=== PATIENT | female | born 1995 | race Caucasian/White ===

== ENCOUNTER 2019-06-04 01:14 | Outpatient (CLI) | payer MEDICAID, SELFPAY ==
--- NOTE | 2019-06-04 08:30 | DI.NM_ITS ---
EXAM: NM HEPATOBILIARY CCK GRP CLINICAL HISTORY: ABDOMINAL PAIN, R10.9. TECHNIQUE: Injected dose: 5 mCi Tc-99 mebrofenin Initial dynamic images: 60 minutes Post-Gallbladder fillin.2 mcg CCK intravenously over a 15min infusion. Addition images: 20 minute dynamic during CCK administration. COMPARISON: No exams were available for comparison FINDINGS: Normal hepatic transit time. Prompt excretion into the small bowel. Prompt excretion into the gallbladder. The gallbladder ejection fraction was 60 percent which is wit hin normal limits. IMPRESSION: 1. Unremarkable examination. SN guidelines: Gallbladder visualization should be present by 3 hours. Delayed [id number] barker sit beyond 60 min raises the suspicion for partial common bile duct (CBD) obstruction. Gallbladder ejection fraction <35% has a good correlation with acalculous disease (i.e., chronic acal culous cholecystitis, cystic duct syndrome, sphincter of Oddi disease).
== END 2019-06-04 01:34 ==
PROVIDERS: PCP Nurse Practitioner Family; Visit Provider Registered Nurse
DX: R10.9 Unspecified abdominal pain (principal)
CPT/HCPCS: 78227

== ENCOUNTER 2020-10-16 22:45 | Emergency (ER) | payer MEDICAID, SELFPAY ==
[2020-10-16 22:50] VITALS: BP 133/72; PULSE 118; RESP 20; TEMP 37.3; O2SAT 100
--- NOTE | 2020-10-16 23:03 | W.ED.GENAD ---
Discharge Plan Disposition Patient Disposition: HOME Condition: Stable Discharge Details Clinical Impression: Arm pain Primary Care Provider: Marely Fernandez ED Provider: Norm Magallanes Home Meds and New Rx's Prescriptions: Continued diphenhydramine-acetaminophen [Tylenol PM Extra Strength] 25-500 mg Tablet 1 tab PO HS RF: 0 PNV cmb#95-ferrous fumarate-FA [ Multivitamins] 28 mg iron- 800 mcg Tablet 1 tab PO DAILY RF: 0 Discharge Instructions Additional Instructions: Your blood work did not show concerning findings and your screening lab test for blood clots was normal follow up with your obgyn within 1-2 weeks espsecially if symptoms are continuing Take tylenol as needed for pain, follow dosing instructions on packaging, avoid using ibuprofen or other nsaids return to the emergency department for worsening pain, difficulty breathing, weakness swelling, chest discomfort, or if you feel more ill Medical Decision Making 25 yo female with prior history of seizure disorder not on medications in over 4 years per patient, who has no history of dvt/pe but states her mother has had clots in the past, who comes in with cc of right mid upper arm pain starting a few hours ago then noticed the bottoms of her feet felt tingly. Denies any known trauma and no chest pain, dyspnea, fevers, abdominal pain. Denies drug use or alcohol use but does smoke daily. 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 She localizes the pain to the medial right mid upper arm. She has no swelling of the arm compared to the left and states it doesn't feel swollen. She has normal sensation and pulses. no erythema or fluctuance. Has full range of motion of all joints, no midline neck pain, normal gait, CN II-XII intact. Denies back pain. She states the bottom of her feet feel like pins and needles. She has normal sensation in both feet on exam without swelling and normal pulses. She has no calf tenderness. She does appear anxious on exam and she does state she does feel anxious right now. Her arm pain seems musculoskeletal but given her family history of possible clotting disorders will obtain d dimer to screen for upper extremity dvt. Normal pulses and sensation on exam so doubt dissection and no chest pain or dyspnea to suggest Pe at this time. Will evaluate for electrolyte abnormalities. NIH of 0 so doubt cva at this time and do not feel head ct indicated blood work unremarkable, has K of 3.4 which given just outside normal range don't feel repletion indicated and wbc of 12 but has no fever or other infectious symptoms. She is and she was already aware of this and states she is about 8 weeks and is having a dating u/s done this Sunday. She remains stable with HR now in the 90's. Her d dimer is normal and given this even though she is and her exam being inconsistent with dvt do not feel she requires additional imaging such as cta or u/s. I suspect strain vs tendonitis causing her pain in the arm and she is comfortable with d/c and f/u with her pcp and obgyn. Advised that the numbness can be from the growing fetus placing pressure on her nerves in her pelvis or a sign of possible gestational diabetes though her glucose on labs is normal, discussed this doesn't exclude this diagnosis and she will f/u with her obgyn. She was advised to return for worsening pain, dyspnea, chest pain or weakness and if she feels ill in any way Differential Diagnosis Differential Diagnosis: muscle strain, dvt, cervical radiculopathy Lab Data Lab results reviewed: Yes I reviewed the patient's lab results. HPI General Mode of arrival: ambulatory. Date/Time Provider Initiated Documentation: 10/16/20 22:48. Limitations to Documentation: no limitations. Information obtained by: patient. History of Present Illness 25 year old F presents to the emergency department with the chief complaint of right mid arm pain, described as mild and moderate, with intensity rated at 5. Quality is described as aching, Patient reports no radiation. Patient started experiencing this hour(s) (2) and it has been constant. No relieving factors improve symptom(s), No exacerbating factors reported . Patient did receive the following treatments prior to arrival, none Related Data Home Medications Medication Instructions Recorded Confirmed PNV cmb#95-ferrous fumarate-FA 1 tab PO DAILY 10/16/20 10/16/20 [ Multivitamins] diphenhydramine-acetaminophen 1 tab PO HS 10/16/20 10/16/20 [Tylenol PM Extra Strength] Allergies Allergy/AdvReac Type Severity Reaction Status Date / Time erythromycin base Allergy Mild Verified 10/16/20 22:55 oxybutynin [From Ditropan] Allergy Mild Verified 10/16/20 22:55 sulfamethoxazole Allergy Mild Verified 10/16/20 22:55 [From Bactrim] trimethoprim [From Bactrim] Allergy Mild Verified 10/16/20 22:55 penicillin V [From Pen-Vee K] Allergy hives Verified 10/16/20 22:55 Penicillins Allergy Verified 10/16/20 22:55 General Stated Complaint: GenMedical LIDIA: 3 Review of Systems All systems reviewed & are unremarkable except as noted in HPI and below Constitutional Constitutional: Denies chills, Denies fever(s) and Denies weakness ENT Ears, Nose, Mouth, and Throat: Denies change in voice Cardiovascular Cardiovascular: Denies chest pain and Denies dyspnea Respiratory Respiratory: Denies cough and Denies dyspnea Gastrointestinal Gastrointestinal: Denies abdominal pain, Denies nausea and Denies vomiting Integumentary/Breasts Skin/Breast: Denies rash Neurologic Neurologic: Denies weakness [facility] Medical History (Updated 10/17/20 @ 00:08 by Norm Magallanes MD) 5,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 Depressive disorder Jane type 2a hyperlipoproteinemia Hypercholesterolemia Myoclonus Obesity Seizure Tobacco dependence Social History Smoking/Tobacco Use Status: Current every day Smoking risk assessment performed?: Yes Alcohol Intake: never Substance use type: does not use Do you feel safe at home: Yes Do you feel safe in your relationship?: Yes Exam Const General: anxious Orientation: alert HENMT Head: normal to inspection Ears: external ears normal General nose exam: external nose normal Mouth: moist mucous membranes Eyes General: appearance normal, both eyes and all related structures Neck Neck: normal visual inspection Resp Effort & Inspection: normal respiratory effort and able to speak in complete sentences Cardio Rate: tachycardic Skin General skin exam: no rashes or lesions noted Neuro General: patient alert and patient oriented x3 Extrem General: normal to inspection Psych Mental Status: mental status grossly normal Course Vital Signs Vital signs: Vital Signs Temperature 37.3 C 10/16/20 22:50 Pulse 118 H 10/16/20 22:50 Respiratory Rate 20 10/16/20 22:50 Blood Pressure 133/72 10/16/20 22:50 Pulse Oximetry 100 10/16/20 22:50 Temperature 37.3 C 10/16/20 22:50 Temperature Source Skin 10/16/20 22:50 Pulse 118 H 10/16/20 22:50 Respiratory Rate 20 10/16/20 22:50 Respiratory Effort Non-Labored 10/16/20 22:57 Blood Pressure 133/72 10/16/20 22:50 Blood Pressure Position Sitting 10/16/20 22:50 Pulse Oximetry 100 10/16/20 22:50 Oxygen Delivery Method Room Air 10/16/20 22:50 Oxygen Flow Rate 0 10/16/20 22:50 Pain Level 7 10/16/20 22:50
[2020-10-16 23:22] LABS: Abs Immature Grans 0.04 10^3/uL (0.0-0.06); Absolute Basophil Count 0.04 10^3/uL (0.0-0.2); Absolute Lymphocyte Count 3.96 10^3/uL (1.2-3.4); Absolute Monocyte Count 1.07 10^3/uL (0.1-0.8); Absolute Neutrophil Count 6.64 10^3/uL (1.2-6.7); Basophils % 0.3; Eosinophils % 2.7; HCT 37.8 % (36.0-46.0); HGB 12.8 g/dL (11.2-15.7); Immature Grans % 0.3; Lymphocytes % 32.8; MCH 30.2 pg (27.0-33.0); MCHC 33.9 % (32.0-36.0); MCV 89.2 fL (80-95); MPV 8.8 fL (8.0-11.0); Monocytes % 8.9; Nucleated RBC 0 %; Platelet Count 411 10^3/uL (130-400); RBC 4.24 10^6/uL (3.93-5.22); RDW 12.3 % (11.7-14.6); RDW-SD 40.3 fL; WBC 12.07 10^3/uL (4.4-10.8)
[2020-10-16 23:23] LABS: Absolute Eosinophil Count 0.33 10^3/uL (0.0-0.7)
[2020-10-16 23:41] LABS: ALT 23 U/L (14-59); AST 12 U/L (15-37); Albumin 3.5 g/dL (3.4-5.0); Alkaline Phosphatase 71 U/L (46-116); Anion Gap 10.2 mmol/L (3-11); BUN 11 mg/dL (7-18); Bilirubin, Total 0.2 mg/dL (0.2-1.0); CO2 23.8 mmol/L (21.0-32.0); CREATININE 0.7 mg/dL (0.55-1.02); Calcium 9.1 mg/dL (8.5-10.1); Chloride 103 mmol/L (98-107); Glucose 96 mg/dL (74-106); Potassium 3.4 mmol/L (3.5-5.1); Sodium 137 mmol/L (136-145); Total Protein 7.6 g/dL (6.4-8.2)
[2020-10-16 23:59] LABS: D-Dimer 356 ng/mlFEU (<500)
[2020-10-17 00:16] VITALS: BP 111/71; PULSE 88; RESP 16; O2SAT 99
== END 2020-10-17 00:48 | disposition home or self-care (01) ==
PROVIDERS: Emergency Provider Emergency Medicine; PCP Nurse Practitioner Family
DX: M79.621 Pain in right upper arm (principal); Z33.1 Pregnant state, incidental; R20.2 Paresthesia of skin
CPT/HCPCS: 80053; 81025; 99282; 84702; 85025; 85379

== ENCOUNTER 2020-11-16 03:45 | Outpatient (CLI) | payer MEDICAID, SELFPAY ==
[2020-11-16 12:12] LABS: Kit/Specimen SENT
[2020-11-16 12:15] LABS: Abs Immature Grans 0.04 10^3/uL (0.0-0.06); Absolute Basophil Count 0.01 10^3/uL (0.0-0.2); Absolute Eosinophil Count 0.15 10^3/uL (0.0-0.7); Absolute Lymphocyte Count 2.53 10^3/uL (1.2-3.4); Absolute Monocyte Count 0.62 10^3/uL (0.1-0.8); Absolute Neutrophil Count 4.92 10^3/uL (1.2-6.7); Basophils % 0.1; Eosinophils % 1.8; HCT 38.7 % (36.0-46.0); HGB 12.8 g/dL (11.2-15.7); Immature Grans % 0.5; Lymphocytes % 30.6; MCH 29.8 pg (27.0-33.0); MCHC 33.1 % (32.0-36.0); MPV 8.8 fL (8.0-11.0); Monocytes % 7.5; Neutrophils % 59.5; Nucleated RBC 0 %; Platelet Count 330 10^3/uL (130-400); RDW 12.3 % (11.7-14.6); RDW-SD 40.5 fL; WBC 8.27 10^3/uL (4.4-10.8)
[2020-11-16 13:07] LABS: TSH (W/Ref FT4) 0.54 uIU/mL (0.36-3.74)
[2020-11-17 09:28] LABS: Hepatitis B Surface Ag Negative (Negative)
[2020-11-17 10:12] LABS: HIV-1/2 Ag & Ab Screen Negative (Negative)
[2020-11-17 10:26] LABS: Hepatitis C Ab w Rflx HCV PCR Negative (Negative)
[2020-11-17 10:57] LABS: Rubella IgG Ab (UVM) Positive (See Note); Varicella IgG Antibody Positive (See Note)
[2020-11-17 13:54] LABS: Syphilis Total Ab w/Reflex Nonreactive (Nonreactive)
[2020-11-22 15:41] LABS: Result Summary NEGATIVE; Specimen WB Whole Blood
== END 2020-11-16 03:46 | disposition home or self-care (01) ==
LOC: LBO 03:45
PROVIDERS: PCP Nurse Practitioner Family; Visit Provider Advanced Practice Midwife
DX: Z34.91 Encounter for supervision of normal pregnancy, unspecified, first trimester (principal); Z11.4 Encounter for screening for human immunodeficiency virus [HIV]; Z11.59 Encounter for screening for other viral diseases; Z01.84 Encounter for antibody response examination
CPT/HCPCS: 86787; 86803; 86850; 86900; 86901; 87340; 87389; 81220; 84443; 85025; 86762; 86780

== ENCOUNTER 2020-11-16 13:26 | Outpatient (REF) | payer MEDICAID, SELFPAY ==
--- NOTE | 2020-11-16 11:00 | PAPFT_PTH ---
PATIENT: Desi Johnson LOC: [facility] U#:[id number] AGE/SX: 25/F ROOM: RE11/16/[address]: Luisa Wayne CNM : 1995 BED: DIS: 11/16/2020 SPEC #: [id number] RECD: 11/16/20 17:43 STATUS: ANCA REDaren #: [id number] SIMEON: 11/16/20 11:[address]: Luisa Wayne DEPT: [facility] Cytology RECD BY: Mera Teran ENTERED: 11/16/20 17:43 SP TYPE: PAPFT OTHR DR: Marely Fernandez Tissues: 1 - CX/ENDOCX FOR PAP SMEARS Procedures: PAP THIN PREP/[facility] Screening Comments: [id number]
[2020-11-16 14:29] LABS: *AMPHETAMINES SCREEN URINE Negative (Negative); *BARBITURATES SCREEN URINE Negative (Negative); *BENZODIAZEPINES SCREEN URINE Negative (Negative); Cannabinoids THC Negative (Negative); Cocaine Screen,Urine Negative (Negative); METHADONE URINE SCREEN Negative (Negative); OPIATES URINE SCREEN Negative (Negative); Tricyclic Antidepressants Negative (Negative)
[2020-11-17 15:11] LABS: Chlamydia Result Negative (Negative); GC Result Negative (Negative)
[2020-11-20 10:44] LABS: Buprenorphine Negative ng/mL (Cutoff: 5.0); Norbuprenorphine Negative ng/mL (Cutoff: 2.5)
== END 2020-11-16 13:27 | disposition home or self-care (01) ==
LOC: LBN 13:26
PROVIDERS: PCP Nurse Practitioner Family; Visit Provider Advanced Practice Midwife
DX: Z34.91 Encounter for supervision of normal pregnancy, unspecified, first trimester (principal); Z11.3 Encounter for screening for infections with a predominantly sexual mode of transmission; Z12.4 Encounter for screening for malignant neoplasm of cervix
CPT/HCPCS: 80307; 87491; 87591; 88142; 87086

== ENCOUNTER 2021-01-07 11:23 | Emergency (ER) | payer MEDICAID, SELFPAY ==
--- OUTSIDE RECORDS SUMMARY | 2021-01-07 11:29 | XMS_ITS ---
:1995 Author Care Team Providers Name Role Phone MARELY FERNANDEZ NP Primary Care Provider Unavailable EDWIN TRAYLOR Histotechnologist Supervisor [phone] Allergies Code Code System Name Reaction Severity Status Onset 618891 RxNorm Bactrim Other Mild to Active ? Moderate Ditropan Other Mild to Active ? Moderate 4053 RxNorm Erythromycin Base Other Mild to Active ? Moderate PEN-VEE K Hives Moderate Active ? Penicillins ? ? Active ? Medications Name Status Start Date Stop Date ? ? Bactrim DS 800 mg-160 mg tablet Completed 07/18/2014 07/28/2014 2 (two) Tablet: every 12 hours cephalexin 500 mg capsule Completed ? 2018 Cipro 250 mg tablet Completed 12/06/2016 12/11/2016 1 (one) Tablet: bid - twice daily doxycycline hyclate 100 mg capsule Active ? Not available TAKE ONE CAPSULE BY MOUTH TWICE A DAY FOR 90 DAYS fluoxetine 20 mg tablet Completed 10/03/2015 11/30/19 16 1 (one) Tablet: qd - daily fluticasone propionate 50 Completed ? 2017 mcg/actuation nasal spray,suspension Gardasil (PF) [id number]/0.5mL intramuscular lanza spension Completed 03/24/2015 07/28/2015 1 (one) INJECTION: Once hydrocodone 5 mg-acetaminophen 325 mg tablet Completed 07/23/2014 2 (two) Tablet: every 4 hours as needed ibuprofen 600 mg tablet Completed 07/18/2013 02/06/20 14 1 Tablet: up to QID prn breast tenderness ibuprofen 800 mg tablet Completed ? 11/05/19 20 ketoconazole 2 % topical cream Active ? N ot available lorazepam 0.5 mg tablet Active ? Not avai lable TAKE ONE TABLET BY MOUTH EVERY 4 HOURS FOR 15 DAYS Macrobid 100 mg capsule Completed 11/23/2016 12/01/19 17 1 Capsule: every 12 hours for 7 days with food for urinary trac tinfection mometasone 0.1 % topical ointment Completed 10/14/2014 03/24/2015 1 (one) Ointment Ointment: two times daily, as needed nicotine (polacrilex) 4 mg buccal lozenge Active ? Not available Take 1 tablet every 3-4 hours by oral route. nicotine 14 mg/24 hr daily transdermal patch Completed ? 09/17/2020 APPLY 1 PATCH TO SKIN EVERY 24 HOURS nicotine 7 mg/24 hr daily transdermal patch Completed ? 09/17/2020 APPLY 1 PATCH TO SKIN EVERY 24 HOURS omeprazole 20 mg capsule,delayed release Completed 014 08/29/[address]: daily prn ondansetron HCl 4 mg tablet Completed ? 10/04 [facility]Zero COVID-19 Vaccine (PF) 30 mcg/0.3 mL IM suspensio n(EUA) Active ? Not available PHARMACY ADMINISTERED phenazopyridine 200 mg tablet Completed 06/30/2016 1 Tablet: 3 times per day for 2 days after meals for urinary tr act pain promethazine 12.5 mg tablet Completed ? 10/04 Take 1 tablet 4 times a day by oral route as needed for 5 days. promethazine 25 mg tablet Completed ? 2019 ranitidine 150 mg capsule Completed 08/29/20132015 1 Capsule Capsule: daily as needed benzonatate 100 mg capsule Active ? Not a vailable TAKE ONE CAPSULE BY MOUTH EVERY 8 HOURS NEEDED topiramate 100 mg tablet Completed ? 020 TAKE ONE TABLET BY MOUTH EVERY DAY WITH 25MG FOR A TOTAL OF 125 MG DAILY topiramate 25 mg tablet Completed ? 07/06/20 20 TAKE ONE TABLET BY MOUTH EVERY DAY trazodone 50 mg tablet Completed ? 0 TAKE ONE TO TWO TABLETS BY MOUTH AT BEDTIME FOR SLEEP DOSE INC REASE Vienva 0.1 mg-20 mcg tablet Completed ? 08/2019 TAKE ONE TABLET BY MOUTH EVERY DAY azithromycin 250 mg tablet Active ? Not a vailable Problems Name Status Onset Date Source ? Hypercholesterolemia Active 04/05/2018 ? Seizure Active 04/05/2018 ? Fatigue Active 04/05/2018 ? Dysuria Unknown 04/05/2018 ? Strain of Muscle of Right Shoulder Active 10/21/2019 ? Sprain of Right Rotator Cuff Capsule Active 11/16/2019 ? Tinea Corporis Unknown ? History 5,10-Methylenetetrahydrofolate Active ? 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 History Hyperlipoproteinemia Obesity Active ? History Tobacco Dependence Syndrome Active ? Hist ory Depressive Disorder Active ? History Myoclonus Active ? History Movement Disorder Unknown ? History Otalgia Unknown ? History Fitting Procedure Unknown ? History Lack of Energy Unknown ? History Headache Active ? History Contraception Care Management Unknown ? Hi story Adult Health Examination Unknown ? History Procedures Date Name Performed by ? 05/26/2019 NM, Hepatobiliary Scan, W/ CCK Xray [facility] [address] [place], [place] [address] (Work Place) Results Lab Results Date Name Specimen Result Interpretation Description Value Range Status Address ? 09/17/2020 Urine ? Hcg positive ? ? P _nc Primary Test, Urine Care [place]: [address], [place] 11/26/2019 SARS CoV 2 SWAB ? Covid-1 negative negati [facility] RNA 9 [facility] Lab (COVID-19), Result (Inte rnal): 189 QL, export agent-PCR, Prou ty , Respiratory Newpo rt Specimen ? ? SWAB ? Perform [facility] ? [facility] ing Lab hospital lab Hos pital Lab (Internal) : [address] 10/21/2019 BMP, Serum or S ? g/r 89 mg/dL 74-106 [facility] Plasma mg/dL Hospital L ab (Internal) : [address] ? ? S ? Bun 13 mg/dL 7-17 [facility] mg/dL Hospital L ab (Internal) : [address] ? ? S High Crea 1.10 mg/dL 0.52-1 [facility] .04 Hospital L ab mg/dL (Internal) : [address] ? ? S ? Ca 9.0 mg/dL 8.4-10 [facility] .2 Hospital L ab mg/dL (Internal) : [address] ? ? S ? Na 139 mmol/L 137-14 [facility] 5 Hospital L ab mmol/L (Internal) : [address] ? ? S ? K 4.1 mmol/L 3.5-5. Final [place] [facility] 1 Hospital L ab mmol/L (Internal) : [address] ? ? S High Cl 110 mmol/L 98-107 Final [place] [facility] mmol/L Hospital L ab (Internal) : [address] ? ? S Low Tco2 18.0 mmol/L 22.0-3 Final [place] [facility] 0.0 Hospital L ab mmol/L (Internal) : [address] 10/21/2019 Lipid Panel, S High Chol 270 mg/dL 50-200 [facility] [place] [facility] Serum mg/dL Hospital L ab (Internal) : [address] ? ? S ? Trig 150 mg/dL 10-150 Final [place] [facility] mg/dL Hospital L ab (Internal) : [address] ? ? S ? Hdl 51 mg/dL 40-60 Final [place] [facility] mg/dL Hospital L ab (Internal) : [address] ? ? S High Ldl 189 mg/dL 0-130 Final [facility] ountry mg/dL Hospital L ab (Internal) : [address] 08/26/2019 CBC W/ Auto BLD - Wbc 8.3 10*3/uL 5.0-10 Fin al [place] [facility] Diff .0 Hospital L ab 10*3/u (Internal) : [address] ? ? BLD - Rbc 4.66 10*6/uL 4.10-5 Final [facility] .30 Hospital L ab 10*6/u (Internal) : [address] ? ? BLD - Hgb 13.8 g/dL 12.0-1 Final [place] [facility] 6.0 Hospital L ab g/dL (Internal) : [address] ? ? BLD - Hct 43.4 % 37.0-4 Final [place] [facility] 7.0 % Hospital L ab (Internal) : [address] ? ? BLD - Mcv 93.1 fL 80.0-9 Final [place] [facility] 6.0 fL Hospital L ab (Internal) : [address] ? ? BLD - Mch 29.6 pg 26.0-3 Final [facility] 2.0 pg Hospital L ab (Internal) : [address] ? ? BLD - Mchc 31.8 g/dL 31.0-3 Final [place] [facility] 5.0 Hospital L ab g/dL (Internal) : [address] ? ? BLD - Rdw 13.1 % 11.5-1 Final [place] [facility] 4.5 % Hospital L ab (Internal) : [address] ? ? BLD - Plt 350 10*3/uL 130-45 Final [place] [facility] 0 Hospital L ab 10*3/u (Internal) : [address] ? ? BLD - Anc 3.67 10*3/uL ? Final [facility] L ab (Internal) : [address] ? ? BLD - Neutro 44.1 % 40.0-7 Final [place] [facility] 5.0 % Hospital L ab (Internal) : [address] ? ? BLD - Lymph 44.5 % 20.0-5 Final [place] [facility] 0.0 % Hospital L ab (Internal) : [address] ? ? BLD - Lyon 8.0 % 2.0-10 Final [place] [facility] .0 % Hospital L ab (Internal) : [address] ? ? BLD - Eos 2.7 % 1.0-6. Final [place] [facility] 0 % Hospital L ab (Internal) : [address] ? ? BLD - Baso 0.5 % 0.0-1. Final [place] [facility] 0 % Hospital L ab (Internal) : [address] ? ? BLD - Ig 0.2 % 0.0-0. Final [place] [facility] 9 % Hospital L ab (Internal) : [address] 08/26/2019 BMP, Serum or S - g/r 77 mg/dL 74-106 [facility] [place] [facility] Plasma mg/dL Hospital L ab (Internal) : [address] ? ? S - Bun 12 mg/dL 7-17 Final [facility] untry mg/dL Hospital L ab (Internal) : [address] ? ? S High Crea 1.10 mg/dL 0.52-1 Final [place] [facility] .04 Hospital L ab mg/dL (Internal) : [address] ? ? S - Ca 9.6 mg/dL 8.4-10 Final [facility] ountry .2 Hospital L ab mg/dL (Internal) : [address] ? ? S - Na 139 mmol/L 137-14 Final [facility] 5 Hospital L ab mmol/L (Internal) : [address] ? ? S - K 3.8 mmol/L 3.5-5. Final [facility] 1 Hospital L ab mmol/L (Internal) : [address] ? ? S High Cl 110 mmol/L 98-107 Final [facility] mmol/L Hospital L ab (Internal) : [address] ? ? S Low Tco2 20.0 mmol/L 22.0-3 Final [facility] 0.0 Hospital L ab mmol/L (Internal) : [address] 08/26/2019 Vitamin B12, S - Vit B12 685.0 pg/mL 239.0- Final [facility] Serum 931.0 Hospital L ab pg/mL (Internal) : [address] 05/24/2019 CBC W/ Auto BLD - Wbc 8.8 10*3/uL 5.0-10 Fin al [place] [facility] Diff .0 Hospital L ab 10*3/u (Internal) : [address] ? ? BLD - Rbc 4.32 10*6/uL 4.10-5 [facility] Hospital L ab 10*6/u (Internal) : [address] ? ? BLD - Hgb 12.7 g/dL 12.0-1 Final [facility] ountry 6.0 Hospital L ab g/dL (Internal) : [address] ? ? BLD - Hct 39.0 % 37.0-4 Final [facility] try 7.0 % Hospital L ab (Internal) : [address] ? ? BLD - Mcv 90.3 fL 80.0-9 Final [place] [facility] 6.0 fL Hospital L ab (Internal) : [address] ? ? BLD - Mch 29.4 pg 26.0-3 Final [place] [facility] 2.0 pg Hospital L ab (Internal) : [address] ? ? BLD - Mchc 32.6 g/dL 31.0-3 Final [place] [facility] 5.0 Hospital L ab g/dL (Internal) : [address] ? ? BLD - Rdw 13.2 % 11.5-1 Final [place] [facility] 4.5 % Hospital L ab (Internal) : [address] ? ? BLD - Plt 332 10*3/uL 130-45 Final [place] [facility] 0 Hospital L ab 10*3/u (Internal) : [address] ? ? BLD - Anc 4.50 10*3/uL ? Final [facility] L ab (Internal) : [address] ? ? BLD - Neutro 51.2 % 40.0-7 Final [facility] ntry 5.0 % Hospital L ab (Internal) : [address] ? ? BLD - Lymph 38.2 % 20.0-5 Final [place] [facility] 0.0 % Hospital L ab (Internal) : [address] ? ? BLD - Lyon 7.5 % 2.0-10 Final [place] [facility] .0 % Hospital L ab (Internal) : [address] ? ? BLD - Eos 2.3 % 1.0-6. Final [place] [facility] 0 % Hospital L ab (Internal) : [address] ? ? BLD - Baso 0.5 % 0.0-1. Final [place] [facility] 0 % Hospital L ab (Internal) : [address] ? ? BLD - Ig 0.3 % 0.0-0. Final [place] [facility] 9 % Hospital L ab (Internal) : [address] 05/24/2019 Lipase, Serum S - Lip 105 U/L 23-300 Final [facility] or Plasma U/L Hospita l Lab (Internal) : [address] 05/24/2019 CMP, Serum or S - g/r 85 mg/dL 74-106 [facility] Plasma mg/dL Hospital L ab (Internal) : [address] ? ? S - Bun 13 mg/dL 7-17 Final [place] [facility] mg/dL Hospital L ab (Internal) : [address] ? ? S High Crea 1.20 mg/dL 0.52-1 Final [facility] .04 Hospital L ab mg/dL (Internal) : [address] ? ? S - Ca 9.0 mg/dL 8.4-10 Final [facility] ountry .2 Hospital L ab mg/dL (Internal) : [address] ? ? S - Na 139 mmol/L 137-14 Final [facility] 5 Hospital L ab mmol/L (Internal) : [address] ? ? S Low K 3.4 mmol/L 3.5-5. Final [facility] 1 Hospital L ab mmol/L (Internal) : [address] ? ? S High Cl 108 mmol/L 98-107 Final [facility] mmol/L Hospital L ab (Internal) : [address] ? ? S - Tco2 22.0 mmol/L 22.0-3 Final [facility] 0.0 Hospital L ab mmol/L (Internal) : [address] ? ? S - Tp 6.7 g/dL 6.3-8. Final [place] [facility] 2 g/dL Hospital L ab (Internal) : [address] ? ? S - Alb 3.5 g/dL 3.5-5. Final [place] [facility] 0 g/dL Hospital L ab (Internal) : [address] ? ? S - Tbil 0.2 mg/dL 0.2-1. Final [facility] ountry 3 Hospital L ab mg/dL (Internal) : [address] ? ? S - Alp 65 U/L 50-136 Final [place] [facility] U/L Hospital L ab (Internal) : [address] ? ? S - Alt 13 U/L 9-52 Final [place] [facility] (Sgpt) U/L Hospital L ab (Internal) : [address] ? ? S - Ast 20 U/L 14-36 Final [place] [facility] (Sgot) U/L Hospital L ab (Internal) : [address] 05/24/2019 Urinalysis, UR - UA-colo yellow pale Final [facility] Dipstick, r yellow Hospita l Lab Reflex Micro (Int ernal): [address] ? ? UR - UA-appe clear clear Final [facility] ar Hospital L ab (Internal) : [address] ? ? UR - UA-spec 1.025 1.003- Final [facility] Grav 1.035 Hospital L ab (Internal) : [address] ? ? UR - UA-pH 6.0 [pH] 4.6-8. Final [facility] 0 [pH] Hospital L ab (Internal) : [address] ? ? UR - UA-leuk negative negati Final [facility] Est ve Hospital L ab (Internal) : [address] ? ? UR - UA-nitr negative negati Final [facility] ite ve Hospital L ab (Internal) : [address] ? ? UR - UA-prot negative negati Final [facility] ve Hospital L ab (Internal) : [address] ? ? UR - UA-gluc negative negati Final [facility] ve Hospital L ab (Internal) : [address] ? ? UR - UA-keto negative negati Final [facility] ne ve Hospital L ab (Internal) : [address] ? ? UR - UA-urob normal normal Final [facility] il Hospital L ab (Internal) : [address] ? ? UR - UA-bili negative negati Final [facility] Hospital L ab (Internal) : [address] ? ? UR ABNORM UA-bloo trace negati Final [facility] AL d ve Hospital L ab (Internal) : [address] 05/24/2019 Urinalysis, UR - UA-WBC 0-3 [hpf] 0-[address] [facility] Microscopic [hpf] Hospi bernard Lab (Internal) : [address] ? ? UR - UA-RBC 0-2 [hpf] 0-2 [facility] [hpf] Hospital L ab (Internal) : [address] ? ? UR - UA-bact rare [hpf] none [facility] er[facility] seen Hospital L ab [hpf] (Internal) : [address] ? ? UR ABNORM UA-epit few [hpf] none Final [place] [facility] [place] helial seen Hospital L ab [hpf] (Internal) : [address] ? ? UR ABNORM UA-mucu few [hpf] none Final [place] [facility] AL s seen Hospital L ab [hpf] (Internal) : [address] 05/24/2019 Drug Screen, UR - Thc negative neg Final [facility] Urine NG/mL (50 Hospital L ab NG/mL) (Internal) : 189 NG/mL [address] ? ? UR - Pcp negative neg Final [facility] (25 Hospital L ab NG/mL) (Internal) : [address] ? ? UR - Russell negative neg [facility] (150 Hospital L ab NG/mL) (Internal) : [address] ? ? UR - Met negative neg [facility] (500 Hospital L ab NG/mL) (Internal) : [address] ? ? UR - Opi negative neg Final [facility] (100 Hospital L ab NG/mL) (Internal) : [address] ? ? UR - Amp negative neg Final [facility] (500 Hospital L ab NG/mL) (Internal) : [address] ? ? UR - Bzo negative neg [facility] (150 Hospital L ab NG/mL) (Internal) : [address] ? ? UR - Tca negative neg Final [facility] (300 Hospital L ab NG/mL) (Internal) : [address] ? ? UR - Mtd negative neg [facility] (200 Hospital L ab NG/mL) (Internal) : [address] ? ? UR - Bar negative neg [facility] (200 Hospital L ab NG/mL) (Internal) : [address] ? ? UR - Oxy negative neg Final [facility] (100 Hospital L ab NG/mL) (Internal) : [address] ? ? UR - Ppx negative neg [facility] (300 Hospital L ab NG/mL) (Internal) : [address] ? ? UR - Bup negative neg Final [facility] untry (10 Hospital L ab NG/mL) (Internal) : [address] 01/10/2019 Rapid Strep THRT - Final microbiology ? [facility] a, results Hospita l Lab Throat (Internal) : [address] 10/29/2018 Chlamydia - Catp sent to ? Final [place] Trachomatis + reference lab Hospital Lab Neisseria (Nutritionist al): [address], rRNA, QL, Ovi [address] ? ? - Gcatp sent to ? Final [facility] ntr reference lab Hos pital Lab (Internal) : [address] ? ? - Specime see comments ? [facility] [place] n Hospital L ab Descript (Interna l): [address] ? ? - Chlamyd negative ? Final [facility] ia Hospital L ab Result (Internal) : [address] ? ? - GC negative ? Final [facility] untry Result Hospital L ab (Internal) : [address] 10/29/2018 Pap Test, MISC - Pap see report ? Final [facility] Thinprep, Hospita l Lab Cervical (Interna l): [address] ? ? MISC - Report (added) ? Corre [facility] untry results below cted Hos pital Lab (Internal) : [address] 10/03/2018 Rapid Strep THRT - Final microbiology ? [facility] a, results Hospita l Lab Throat (Internal) : [address] 10/03/2018 Rapid Flu NASAL - Final microbiology ? [facility] (A+B) results Hospital Lab (Internal) : [address] 10/04/2017 Neutrophil BLD ? Anc-man 2.37 10*3/uL ? F inal [facility] Count, ual Hospital L ab Absolute (Interna l): 189 (Anc), Blood Prou [address] 10/04/2017 Differential, BLD Low Polys 31 % 40-75 Final [facility] Manual, Blood % Hos pital Lab (Internal) : [address] ? ? BLD ? Bands 1 % 0-5 % Final [facility] Hospital L ab (Internal) : [address] ? ? BLD High Lymphs 59 % 20-50 Final [place] [facility] % Hospital L ab (Internal) : [address] ? ? BLD ? Lyon 7 % 2-10 % Final [facility] Hospital L ab (Internal) : [address] ? ? BLD ? Eos 1 % 0-6 % Final [facility] Hospital L ab (Internal) : [address] ? ? BLD ? Baso 1 % 0-1 % Final [facility] Hospital L ab (Internal) : [address] ? ? BLD ? Atyp 0 % ? Final [facility] Lymph Hospital L ab (Internal) : [address] ? ? BLD ? Plts, adequate adequa Final [facility] untry Est. te Hospital L ab (Internal) : [address] ? ? BLD ? RBC normal normal Final [facility] Hospital Lab gy (Internal) : [address] 10/04/2017 TSH, Serum or S ? Tsh 3.79 u[IU]/mL 0.47-4 Final [facility] Plasma .68 Hospital L ab u[IU]/ (Internal) : [address] 10/04/2017 Vitamin B12, S ? Vit B12 277.0 pg/mL 239.0- Final [facility] Serum 931.0 Hospital L ab pg/mL (Internal) : [address] 10/04/2017 CBC W/ Auto BLD ? Wbc 7.4 10*3/uL 5.0-10 Fin al [place] [facility] Diff .0 Hospital L ab 10*3/u (Internal) : [address] ? ? BLD ? Rbc 4.75 10*6/uL 4.10-5 Final [facility] .30 Hospital L ab 10*6/u (Internal) : [address] ? ? BLD ? Hgb 13.8 g/dL 12.0-1 Final [facility] ountry 6.0 Hospital L ab g/dL (Internal) : [address] ? ? BLD ? Hct 43.4 % 37.0-4 Final [place] [facility] 7.0 % Hospital L ab (Internal) : [address] ? ? BLD ? Mcv 91.4 fL 80.0-9 Final [facility] ntry 6.0 fL Hospital L ab (Internal) : [address] ? ? BLD ? Mch 29.1 pg 26.0-3 Final [facility] ntry 2.0 pg Hospital L ab (Internal) : [address] ? ? BLD ? Mchc 31.8 g/dL 31.0-3 Final [facility] ountry 5.0 Hospital L ab g/dL (Internal) : [address] ? ? BLD ? Rdw 12.9 % 11.5-1 Final [place] [facility] 4.5 % Hospital L ab (Internal) : [address] ? ? BLD ? Plt 372 10*3/uL 130-45 Final [place] [facility] 0 Hospital L ab 10*3/u (Internal) : [address] ? Venipuncture ? Locatio Left ? ? P_ nc Primary n Antecubital Care [place]: [address], [place] ? ? ? Needle 21g ? ? P_nc Prim brandon Vacutainer Care [place]: [address], [place] ? ? ? Number 1 ? ? P_nc Prim brandon of Care Attempts [place]: [address], [place] ? ? ? Success Yes ? ? P_nc Alisha nel ful Care [place]: [address], [place] ? ? ? Dressin Pressure ? ? P_nc P rimary g Band-aid Care Applied [place]: [address], [place] ? ? ? Initial HJ ? ? P_nc Alisha nel s Care [place]: [address], [place] ? Urinalysis, ? Color Yellow ? ? P_nc Primary Dipstick, Care Reflex Micro [place]: [address], [place] ? ? ? Appeara Clear ? ? P_nc Alisha nel nce Care [place]: [address], [place] ? ? ? Glucose Normal ? ? P_nc Alisha nel Care [place]: [address], [place] ? ? ? Bilirub Negative ? ? P_nc P rimary in Care [place]: [address], [place] ? ? ? Ketones Negative ? ? P_nc P rimary Care [place]: [address], [place] ? ? ? Specifi 1.020 ? ? P_nc Alisha nel lee Care [place]: [address], [place] ? ? ? Blood Trace ? ? P_nc Prima ry Care [place]: [address], [place] ? ? ? Ph 5.5 ? ? P_nc Prima ry Care [place]: [address], [place] ? ? ? Protein Negative ? ? P_nc P rimary Care [place]: [address], [place] ? ? ? Urobili 0.2 ? ? P_nc Alisha nel swanson Care [place]: [address], [place] ? ? ? Nitrite negative ? ? P_nc P rimary Care [place]: [address], [place] ? ? ? Leukocy Negative ? ? P_nc P rimary te Care Esterase [place]: [address], [place] Past Encounters 09/17/2020 ; Contraception Care Management Marely Fernandez STUDENT EDUCATION SPECIALIST: [address], [place] [address], Ph. 07/06/2020 Seizure; Tobacco Dependence Syndrome; Ec zema; Insomnia Marely Fernandez STUDENT EDUCATION SPECIALIST: [address], [place] [address], Ph. 05/07/2020 Seizure; Administration of Influenza Vac cine; Nicotine Dependence Marely Fernandez STUDENT EDUCATION SPECIALIST: [address], [place] [address], Ph. 02/16/2020 Sprain of Right Rotator Cuff Capsule Kathryn Alvarenga PA-C: [address] [place] [address], Ph. 12/04/2019 Neck Sprain; Pain of Right Shoulder Join bobby Morales, PT: [address] [place] [address], [address] [address], Ph. 11/25/2019 Cough Marely Fernandez, STUDENT EDUCATION SPECIALIST: [address], [place] [address], Ph. 11/05/2019 Sprain of Right Rotator Cuff Capsule SOLO GarciaC: [address] [place] [address], Ph. 10/21/2019 Strain of Muscle of Right Shoulder Jack Bhatti MD: [address] [place] [address], Ph. 10/21/2019 Hypercholesterolemia Marely Fernandez, STUDENT EDUCATION SPECIALIST: [address], [place] [address], Ph. 10/15/2019 Neck Sprain; Pain of Right Shoulder Join bobby Morales, PT: [address] [place] [phone], Ph. 10/13/2019 Neck Sprain; Pain of Right Shoulder Join bobby Morales, PT: [address] [place] [phone], Ph. 10/07/2019 Neck Sprain; Pain of Right Shoulder Join bobby Morales, PT: [address] [address], Ph. 10/02/2019 Sprain of Right Rotator Cuff Capsule SOLO GarciaC: [address] [place] [address], Ph. 09/25/2019 Neck Sprain; Injury of Chest Wall; Injur y of Shoulder Region SOLO GarciaC: [address] [place] [address], Ph. Social History Tobacco Smoking Status Former Smoker Vaccine List Vaccine Type COVID-19, mRNA, LNP-S, PF, 30 mcg/0.3 mL dose 08/04/2020 08/25/2020 DTaP 11/14/2000 DTaP-Hib 1996 1996 1996 04/30/1997 Hep B, adolescent or pediatric 1996 1996 1996 HPV, quadrivalent 10/08/2007 04/02/2008 03/24/2015?0.5 mL influenza, injectable, quadrivalent, pre servative free 05/07/2020?0.5 mL influenza, seasonal, injectable 08/06/1997 08/06/1998 08/06/2002 08/06/2011 meningococcal MPSV4 10/08/2007 06/24/2012 MMR 04/30/1997 04/22/2001 OPV 1996 1996 1996 04/22/2001 Td (adult), adsorbed 10/29/2018 Tdap 04/02/2008 varicella 01/01/1998 10/08/2007 Plan of Care Reminders Provider Appointments None ? ? recorded. Lab None ? ? recorded. Referral None ? ? recorded. Procedures None ? ? recorded. Surgeries None ? ? recorded. Imaging None ? ? recorded. Vitals 09/17/2020 02:40PM Follow Up 20 Height Weight BMI Blood Pressure 170.82 cm 84.85 kg 29.1 kg/m2 118/66 mm[Hg] 07/06/2020 02:00PM Follow Up 20 Height Weight BMI Blood Pressure 170.82 cm 73.74 kg 25.3 kg/m2 108/66 mm[Hg] 05/07/2020 01:00PM Acute 20 Height Weight BMI Blood Pressure 170.82 cm 72.66 kg 24.9 kg/m2 112/68 mm[Hg] 02/16/2020 02:20PM Follow Up 20 Height Weight BMI Blood Pressure 170.82 cm 72.12 kg 24.7 kg/m2 120/80 mm[Hg] 11/25/2019 03:00PM Follow Up 20 Height 170.82 cm 11/05/2019 01:40PM Follow Up 20 Height Weight BMI Blood Pressure 170.82 cm 78.02 kg 26.7 kg/m2 110/70 mm[Hg] 10/21/2019 09:20AM Follow Up 20 Height Blood Pressure 170.82 cm 104/68 mm[Hg] 10/02/2019 04:00PM Follow Up 40 Height Weight BMI Blood Pressure 170.82 cm 77.11 kg 26.4 kg/m2 110/70 mm[Hg] 09/25/2019 11:00AM Same Day 20 Height Weight BMI Blood Pressure 170.82 cm 63.05 kg 21.6 kg/m2 120/80 mm[Hg] 05/26/2019 03:40PM Acute 20 Height Weight BMI Blood Pressure 170.82 cm 81.19 kg 27.8 kg/m2 122/74 mm[Hg] 04/29/2019 02:00PM Follow Up 20 Height Weight BMI Blood Pressure 170.82 cm 79.38 kg 27.2 kg/m2 100/62 mm[Hg] 02/11/2019 01:00PM Acute 20 Height Blood Pressure 170.82 cm 98/64 mm[Hg] 10/29/2018 09:40AM CPE 40 Height Weight BMI Blood Pressure 170.82 cm 78.02 kg 26.7 kg/m2 100/70 mm[Hg] 05/01/2018 11:00AM Follow Up 20 Height Weight BMI Blood Pressure 170.82 cm 80.74 kg 27.7 kg/m2 110/70 mm[Hg] 04/05/2018 03:00PM Acute 30 Height Weight BMI Blood Pressure 170.82 cm 77.11 kg 26.4 kg/m2 110/70 mm[Hg] 01/30/2018 09:30AM Follow Up 30 Height Weight BMI Blood Pressure 170.82 cm 78.93 kg 27 kg/m2 108/70 mm[Hg] 10/01/2017 Height Weight Blood Pressure 170.82 cm 74.84 kg 108/78 mm[Hg] 09/28/2017 Blood Pressure 110/76 mm[Hg] 12/08/2016 Height Weight Blood Pressure 170.82 cm 77.47 kg 112/74 mm[Hg] 12/06/2016 Weight Blood Pressure 78.02 kg 120/80 mm[Hg] 11/23/2016 Weight Blood Pressure 77.56 kg 96/70 mm[Hg] 08/01/2016 Height Weight Blood Pressure 170.82 cm 78.93 kg 98/70 mm[Hg] 06/30/2016 Height Weight Blood Pressure 170.82 cm 81.65 kg 118/68 mm[Hg] 01/31/2016 Height Weight Blood Pressure 170.82 cm 87.09 kg 120/74 mm[Hg] 11/30/2015 Height Weight Blood Pressure 170.82 cm 90.26 kg 114/74 mm[Hg] 10/01/2015 Height Weight Blood Pressure 170.82 cm 89.36 kg 112/78 mm[Hg] 07/28/2015 Height Weight Blood Pressure 170.82 cm 87.54 kg 118/82 mm[Hg] 03/24/2015 Height Weight Blood Pressure 170.82 cm 92.99 kg 116/76 mm[Hg] 12/29/2014 Height Weight Blood Pressure 170.18 cm 89.13 kg 130/80 mm[Hg] 11/11/2014 Height Weight Blood Pressure 170.18 cm 81.65 kg 116/80 mm[Hg] 11/10/2014 Height Weight Blood Pressure 170.18 cm 81.65 kg 130/78 mm[Hg] 10/30/2014 Blood Pressure 122/82 mm[Hg] 10/27/2014 Weight Blood Pressure 81.06 kg 120/60 mm[Hg] 10/14/2014 Height Weight Blood Pressure 170.82 cm 80.29 kg 118/70 mm[Hg] 05/29/2014 Blood Pressure 126/70 mm[Hg] 05/14/2014 Height Weight Blood Pressure 170.18 cm 70.99 kg 122/70 mm[Hg] 05/04/2014 Height Weight Blood Pressure 170.18 cm 68.95 kg 106/70 mm[Hg] 03/31/2014 Blood Pressure 110/82 mm[Hg] 02/05/2014 Height Weight Blood Pressure 170.18 cm 72.12 kg 124/82 mm[Hg] 02/03/2014 Height Weight Blood Pressure 170.18 cm 75.98 kg 118/76 mm[Hg] 12/03/2013 Height Weight Blood Pressure 170.18 cm 75.98 kg 126/86 mm[Hg] 09/09/2013 Height Weight Blood Pressure 170.18 cm 77.11 kg 118/74 mm[Hg] 08/29/2013 Blood Pressure 118/78 mm[Hg] 07/18/2013 Height Weight Blood Pressure 170.18 cm 78.47 kg 132/80 mm[Hg]
[2021-01-07 11:33] VITALS: BP 131/77; PULSE 103; RESP 22; TEMP 37.3; O2SAT 98
--- NOTE | 2021-01-07 12:00 | DI.US_ITS ---
Exam(s) US RENAL EXAM: US RENAL CLINICAL HISTORY: pain left flank, 19wks. TECHNIQUE: Blair scale, color and spectral Doppler were used. COMPARISON: No exams were available for comparison FINDINGS: Renal size in cm: Right: 11.2. Left: 13.3. Echogenicity: Normal. Hydronephrosis: Mild bilateral hydronephrosis. Cyst or mass: No. Nephrolithiasis: No. Other findings: None. Bladder:Inadequate evaluation of the urinary bladder as the patient voided prior to the examination. Ureteral jets: Right: Not visualized on this examination. Left: Not visualized on this examination. Prevoid vol:14 cc Postvoid vol:Not determined on this examination. Renal color flow: Symmetric and within normal limits. IMPRESSION: Mild bilateral hydronephrosis. DATA REPOSITORY:
--- NOTE | 2021-01-07 12:00 | DI.US_ITS ---
Exam(s) US OB TYLER WEIGHT EXAM: US OB TYLER WEIGHT CLINICAL HISTORY: pain left flank radiating to groin, 19wks . TECHNIQUE: Transabdominal obstetrical ultrasound performed. COMPARISON: No exams were available for comparison FINDINGS: Transabdominal obstetrical ultrasound performed. FINDINGS: Number of fetuses: One. position: Cephalic. Placental location: Anterior. No evidence of previa. anatomic evaluation was not performed at this time. BIOMETRIC DATA: BPD: 46 mm = 19 weeks 6 days HC: 171 mm = 19 weeks 5 days AC: 143 mm = 19 weeks 5 days FL: 31 mm = 19 weeks 5 days EFW: 307 grms 77% Composite Age: 19 weeks 5 days EDC: 05/29/2021 Heart Rate: 158BPM Amniotic fluid index: Visually, amount of fluid is within normal limits. Ovaries: The right ovary measures 3.8 x 1.7 x 2.0 cm. The left ovary measures 3.2 x 2.4 x 1.9 cm. T here is normal blood flow to both ovaries. Small follicular cysts are seen bilaterally. No evidence of torsion. IMPRESSION: 1. Single live intrauterine gestation as above. 2. Estimated weight is 307gms. 3. The ovaries are unremarkable. No evidence of torsion. DATA REPOSITORY:
[2021-01-07 12:32] LABS: Bilirubin Negative (Negative); Blood Moderate (Negative); Clarity Clear (Clear); Glucose Negative (Negative); Ketones Negative (Negative); Leukocyte Esterase Negative (Negative); Nitrite Negative (Negative); Urobilinogen 0.2 EU/dL (Up TO 0.2)
[2021-01-07 12:43] LABS: Bacteria Negative HPF (Negative); C & S Indicated? No; Casts Negative LPF (Negative); Crystals Negative HPF (Negative); Epithelial Cells Rare HPF (Negative); Mucus Negative (Negative); WBC Negative HPF (0-5)
--- NOTE | 2021-01-07 13:06 | ED.GENADUL_ITS ---
Discharge Plan Disposition Patient Disposition: HOME Condition: Stable Discharge Details Clinical Impression: Acute left flank pain Primary Care Provider: Marely Fernandez ED Provider: Orlando Osborne Home Meds and New Rx's Prescriptions: Continued nicotine (polacrilex) [Nicorette] 2 mg gum 2 mg buccal Q2H Qty: 40 RF: 3 diphenhydramine-acetaminophen [Tylenol PM Extra Strength] 25-500 mg Tablet 1 tab PO HS RF: 0 PNV cmb#95-ferrous fumarate-FA [ Multivitamins] 28 mg iron- 800 mcg Tablet 1 tab PO DAILY RF: 0 Discharge Instructions Instructions: Flank Pain (ED) Additional Instructions: Please follow-up with your obstetrical team. Call today to schedule follow-up appointment. Please take ibuprofen over the counter. Take 400mg by mouth every 6 hours as needed for pain. Please take acetaminophen (tylenol) - 650mg every 6 hours by mouth as needed for pain. Return to the emergency department immediately for any worsening or new concerning symptoms. Referrals: [facility] [Provider Group] Discharge Data Discharge Date/Time-TO BE ENTERED AT DEPARTURE: 01/07/21 13:40 Medical Decision Making 25-year-old G1, P0 at 19 weeks here with left flank pain that started last night and has persisted. to date has been uncomplicated with normal pelvic ultrasound. Abdominal exam is benign. heart rate within normal limits per nursing. I ordered renal ultrasound to assess kidneys as well as obstetrical ultrasound to assess fetus and ovaries. Ultrasound of the fetus was interpreted by radiology:1. Single live intrauterine gestation as above. 2. Estimated weight is 307gms. 3. The ovaries are unremarkable. No evidence of torsion. Renal ultrasound was interpreted by radiology:Mild bilateral hydronephrosis. I called and spoke with umbrella tipper hand on-call and discussed ED presentation and course including diagnostics. She recommends treating with NSAID and having patient follow-up in the outpatient setting. I reviewed all results with the patient and recommendations from obstetrics. I encouraged her to follow-up with her obstetrical team and to return immediately to the emerge department should she have any worsening or new concerning symptoms. Patient verbalized understanding of discharge treatment plan. HPI General Mode of arrival: ambulatory . Date/Time Provider Initiated Documentation: 01/07/21 11:39 . Limitations to Documentation: no limitations . Information obtained by: patient . HPI Narrative: 25-year-old G1, P0 at 19 weeks presents with chief complaint of left flank pain. Pain started last night around 8:00. Pain is described as sharp intermittently stabbing. Pain moderate intensity. Pain has persisted intermittently. Pain is localized to left flank and radiates to her left groin. Patient took Tylenol last night that did not provide significant relief. She has not taken any medication today. She denies associated vaginal bleeding or vaginal discharge. Patient notes that when she urinates pain does seem to worsen a bit but denies dysuria or hematuria. She has had some mild nausea with no vomiting. No fever. Patient denies rash. No recent injury. to date has been unremarkable with normal ultrasound. Related Data Home Medications Medication Instructions Recorded Confirmed PNV cmb#95-ferrous fumarate-FA 1 tab PO DAILY 10/16/20 01/07/21 [ Multivitamins] diphenhydramine-acetaminophen 1 tab PO HS 10/16/20 01/07/21 [Tylenol PM Extra Strength] nicotine (polacrilex) 2 mg gum 2 mg BUCCAL Q2H #40 ea 10/22/20 01/07/21 Previous Rx's Medication Instructions Recorded nicotine (polacrilex) 2 mg gum 2 mg BUCCAL Q2H #40 ea 10/22/20 Allergies Allergy/AdvReac Type Severity Reaction Status Date / Time erythromycin base Allergy Mild Verified 01/07/21 11:36 oxybutynin [From Ditropan] Allergy Mild Verified 01/07/21 11:36 sulfamethoxazole Allergy Mild Verified 01/07/21 11:36 [From Bactrim] trimethoprim [From Bactrim] Allergy Mild Verified 01/07/21 11:36 penicillin V [From Pen-Vee K] Allergy hives Verified 01/07/21 11:36 Penicillins Allergy Verified 01/07/21 11:36 General Stated Complaint: Abd Prob LIDIA: 3 Review of Systems All systems reviewed & are unremarkable except as noted in HPI and below Constitutional Constitutional: Denies fever(s) Gastrointestinal Gastrointestinal: Reports as per HPI Genitourinary Genitourinary: Reports as per HPI, Denies abnormal vaginal bleeding, Denies difficulty voiding, Denies genital lesions, Denies urinary hesitancy, Denies urinary urgency and Denies vaginal discharge [facility] Medical History 5,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 Depressive disorder Jane type 2a hyperlipoproteinemia Hypercholesterolemia Myoclonus Obesity Seizure Tobacco dependence Social History Smoking/Tobacco Use Status: Current every day Smoking risk assessment performed?: Yes Alcohol Intake: never Substance use type: does not use Do you feel safe at home: Yes Do you feel safe in your relationship?: Yes History History 1 Para 0 Hx # Term Pregnancies 0 Multiple births 0 Hx # Pregnancies 0 Ectopic pregnancies 0 AB induced 0 Hx Number of Living Children 0 AB spontaneous 0 Exam Const General: cooperative and no acute distress HENMT Mouth: moist mucous membranes Eyes Conjunctivae: normal conjunctivae Sclera: normal sclerae Neck Neck: trachea midline and supple Resp Auscultation: clear to auscultation bilaterally, no rales, no rhonchi and no wheezes Cardio Rate: regular rate and not tachycardic Rhythm: regular rhythm GI Palpation: soft, not firm, no guarding, no masses, not rigid, nontender and other (Gravid abdomen) Auscultation: normal bowel sounds Skin General skin exam: no rashes or lesions noted Neuro General: patient alert, patient awake, patient oriented x3 and tone normal Extrem General: no edema Psych Appearance: grossly normal Mental Status: mental status grossly normal Course Vital Signs Vital signs: Vital Signs Temperature 37.3 C 01/07/21 11:33 Pulse 103 H 01/07/21 11:33 Respiratory Rate 22 01/07/21 11:33 Blood Pressure 131/77 01/07/21 11:33 Pulse Oximetry 98 01/07/21 11:33 Temperature 37.3 C 01/07/21 11:33 Temperature Source Skin 01/07/21 11:33 Pulse 103 H 01/07/21 11:33 Respiratory Rate 22 01/07/21 11:33 Respiratory Effort Non-Labored 01/07/21 11:37 Blood Pressure 131/77 01/07/21 11:33 Blood Pressure Position Supine 01/07/21 11:33 Pulse Oximetry 98 01/07/21 11:33 Oxygen Delivery Method Room Air 01/07/21 11:33 Oxygen Flow Rate 0 01/07/21 11:33 Pain Level 7 01/07/21 11:33 Lab/Test Results Lab/Test Results: Laboratory Tests Range/Units 06/04/21 12:20 Urine Color (Yellow) Yellow Urine Clarity (Clear) Clear Urine pH (5-8) 7.0 Ur Specific [place] (1.005-1.025) 1.010 Urine Protein (Negative) mg/dL Negative Urine Ketones (Negative) mg/dL Negative Urine Blood (Negative) Moderate H Urine Nitrite (Negative) Negative Urine Bilirubin (Negative) Negative Urine Urobilinogen (Up TO 0.2) EU/dL 0.2 Ur Leukocyte Esterase (Negative) Negative Urine RBC (0-2) HPF 5-10 H Urine WBC (0-5) HPF Negative Ur Epithelial Cells (Negative) HPF Rare Urine Crystals (Negative) HPF Negative Urine Bacteria (Negative) HPF Negative Urine Casts (Negative) LPF Negative Urine Mucus (Negative) Negative Ur Culture Indicated? No Urine Glucose (Negative) mg/dL Negative
--- NOTE | 2021-01-07 16:27 | NUR.NOTE ---
1629 susana did call back as instructed by Dr Alonzo Osborne. she stated that she took the tylenol and ibuprofen and it did not help, she said that she was supposed to work .Nursing Note:
== END 2021-01-07 13:40 | disposition home or self-care (01) ==
PROVIDERS: Emergency Provider Student in an Organized Health Care Education/Training Program; PCP Nurse Practitioner Family
DX: O26.892 Other specified pregnancy related conditions, second trimester (principal); Z3A.19 19 weeks gestation of pregnancy; O99.332 Smoking (tobacco) complicating pregnancy, second trimester; F17.210 Nicotine dependence, cigarettes, uncomplicated; R10.12 Left upper quadrant pain; R11.0 Nausea
CPT/HCPCS: 76770; 76816; 99284; 81003; 81015; 99285

== ENCOUNTER 2021-03-14 03:48 | Outpatient (CLI) | payer MEDICAID, SELFPAY ==
[2021-03-14 09:40] LABS: HCT 31.5 % (36.0-46.0); HGB 10.4 g/dL (11.2-15.7); MCH 30.2 pg (27.0-33.0); MCV 91.6 fL (80-95); MPV 9.9 fL (8.0-11.0); Platelet Count 303 10^3/uL (130-400); RBC 3.44 10^6/uL (3.93-5.22); RDW 13.5 % (11.7-14.6); RDW-SD 45.5 fL; WBC 11.33 10^3/uL (4.4-10.8)
[2021-03-14 10:19] LABS: Glucose,1 Hr (Glucola) 167 mg/dL (80-140)
== END 2021-03-14 03:49 | disposition home or self-care (01) ==
PROVIDERS: PCP Nurse Practitioner Family; Visit Provider Advanced Practice Midwife
DX: Z34.93 Encounter for supervision of normal pregnancy, unspecified, third trimester (principal); Z3A.28 28 weeks gestation of pregnancy
CPT/HCPCS: 36415; 82950; 85027

== ENCOUNTER 2021-03-25 02:18 | Outpatient (CLI) | payer MEDICAID, SELFPAY ==
[2021-03-25 09:07] LABS: Glucose 1 Hour 152 mg/dL
[2021-03-25 11:02] LABS: Glucose 3 Hour 148 mg/dL
--- NOTE | 2021-04-05 13:58 | W.DIABETESNO ---
Date of service: 04/05/21 Time of Service: 13:58 Diabetes Note NOTE: Met with Desi today in [facility]. She is 31 weeks with GDM. Strong family hx of DM2. Blood sugar logs indicate fasting BG < 95 mg/dl and no elevated post prandial levels. Provided education on diet/lifestyle changes that can manage GDM. Written material and contact information provided. At this time, GDM controlled by diet/life style choices. Time Spent in Nutritional Counseling and Treatment: 15
== END 2021-03-25 02:19 | disposition home or self-care (01) ==
LOC: LBO 02:18
PROVIDERS: PCP Nurse Practitioner Family; Visit Provider Advanced Practice Midwife
DX: O99.810 Abnormal glucose complicating pregnancy (principal); Z3A.29 29 weeks gestation of pregnancy
CPT/HCPCS: 36415; 82951

== ENCOUNTER 2021-04-11 11:19 | Outpatient (CLI) | payer MEDICAID, SELFPAY ==
[2021-04-11 11:30] VITALS: BP 124/80; PULSE 109; TEMP 37
[2021-04-11 11:43] VITALS: BP 124/80; PULSE 109
[2021-04-11 12:08] VITALS: BP 115/73; PULSE 95
--- NOTE | 2021-05-18 09:10 | W.OBNST ---
Date of service: 04/11/21 Time of Service: 12:00 NST Evaluation Reason for NST Reasons for Nonstress Test: OTHER, SEE COMMENT Reason for NST Other: Headache,not responive to pain meds Gestational Age Gestational Age in Weeks and Days: 32 Weeks and 4Days Test and Monitor Explained Test/Monitor Explained: Test Explained, Monitor Explained and Patient Verbalized Understanding Vital Signs Blood Pressure: 124/80 Pulse: 109 Temperature: 98.6 F Urine Results Urine Protein: Negative Urine Ketones: Negative Urine Glucose: Negative Urine Blood: Positive NST Information Date on Monitor: 04/11/21 Time on Monitor: 11:40 Date off Monitor: 04/11/21 Time off Monitor: 12:10 Total Time on Monitor: 30 NST Interventions: PO Hydration NST Evaluation Patient States Movement: Present FHR Baseline: 135 Variability: Moderate 6-25 bpm Accelerations: 15x15 Decelerations: None NST Results: Reactive Note NST Note Note: NST is complete and reactive / reassuring. See other notes. JOSE NST Reviewed and Verified by: Jackie Mcginnis
[2021-05-18 09:11] VITALS: BP 124/80; PULSE 109; TEMP 37
== END 2021-04-11 12:20 | disposition home or self-care (01) ==
LOC: BCD 11:21 → OBS 11:35
PROVIDERS: PCP Nurse Practitioner Family; Visit Provider Advanced Practice Midwife
DX: O26.893 Other specified pregnancy related conditions, third trimester (principal); R51.9 Headache, unspecified; Z3A.32 32 weeks gestation of pregnancy
CPT/HCPCS: 59025; 87086

== ENCOUNTER 2021-05-04 12:17 | Outpatient (REF) | payer MEDICAID, SELFPAY ==
[2021-05-04 14:12] LABS: *AMPHETAMINES SCREEN URINE Negative (Negative); *BARBITURATES SCREEN URINE Negative (Negative); *BENZODIAZEPINES SCREEN URINE Negative (Negative); Cannabinoids THC Negative (Negative); Cocaine Screen,Urine Negative (Negative); METHADONE URINE SCREEN Negative (Negative); OPIATES URINE SCREEN Negative (Negative)
[2021-05-04 14:16] LABS: Tricyclic Antidepressants Negative (Negative)
[2021-05-10 19:41] LABS: Buprenorphine Negative ng/mL (Cutoff: 5.0); Norbuprenorphine Negative ng/mL (Cutoff: 2.5)
== END 2021-05-04 12:18 | disposition home or self-care (01) ==
LOC: LBN 12:17
PROVIDERS: PCP Nurse Practitioner Family; Visit Provider Advanced Practice Midwife
DX: Z34.93 Encounter for supervision of normal pregnancy, unspecified, third trimester (principal); Z3A.35 35 weeks gestation of pregnancy
CPT/HCPCS: 80307; 87081

== ENCOUNTER 2021-05-10 02:21 | Outpatient (CLI) | payer MEDICAID, SELFPAY ==
--- NOTE | 2021-05-10 07:30 | DI.US_ITS ---
Exam(s) US OB TYLER WEIGHT EXAM: US OB TYLER WEIGHT CLINICAL HISTORY: growth and tyler,GEST. DIABETES,[id number]. TECHNIQUE: Transabdominal obstetrical ultrasound performed. COMPARISON: US US OB TYLER WEIGHT from 01/07/2021 FINDINGS: Transabdominal obstetrical ultrasound performed. FINDINGS: Number of fetuses: One. position: Cephalic. Placental location: There is a grade 2 anterior placenta. No evidence of previa. BIOMETRIC DATA: BPD: 89 mm = 36 weeks HC: 325 mm = 36 weeks 6 days AC: 320 mm = 36 weeks FL: 70 mm = 36 weeks 1 day EFW: 2841 grms 37% Composite Age: 36 weeks 2 days EDC: 06/05/2021 Heart Rate: 151BPM Amniotic fluid index: 10.4 cm. Visually, amount of fluid is within normal limits. IMPRESSION: 1. Single live intrauterine gestation as above. 2. Estimated weight is 2841gms. 3. Amniotic fluid index is 10.4 cm. Visually within normal limits. DATA REPOSITORY:
== END 2021-05-10 02:41 ==
PROVIDERS: PCP Nurse Practitioner Family; Visit Provider Advanced Practice Midwife
DX: O24.410 Gestational diabetes mellitus in pregnancy, diet controlled (principal); Z3A.36 36 weeks gestation of pregnancy
CPT/HCPCS: 76816

== ENCOUNTER 2021-05-18 16:24 | Outpatient (REF) | payer MEDICAID, SELFPAY | END 2021-05-18 16:25 | disposition home or self-care (01) | LOC: LBN 16:24 | PROVIDERS: PCP Nurse Practitioner Family; Visit Provider Advanced Practice Midwife | DX: N89.8 Other specified noninflammatory disorders of vagina (principal) | CPT/HCPCS: 87480; 87510; 87660 ==

== ENCOUNTER 2021-05-22 19:47 | Outpatient (CLI) | payer MEDICAID, SELFPAY ==
[2021-05-22 20:21] VITALS: BP 119/77; PULSE 88; TEMP 36.8
[2021-05-22 20:59] VITALS: BP 119/77; PULSE 88
--- NOTE | 2021-05-22 21:05 | PDOC.NST_ITS ---
Date of service: 05/22/21 Time of Service: 21:05 NST Evaluation Reason for NST Reasons for Nonstress Test: DECREASED MOVEMENT Gestational Age Gestational Age in Weeks and Days: 38 Weeks and 3Days Test and Monitor Explained Test/Monitor Explained: Patient Verbalized Understanding Vital Signs Blood Pressure: 119/77 Pulse: 88 Temperature: 98.3 F NST Information Date on Monitor: 05/22/21 Time on Monitor: 20:16 Date off Monitor: 05/22/21 Time off Monitor: 20:57 Total Time on Monitor: 41 NST Interventions: PO Hydration Contraction Frequency: none NST Evaluation Patient States Movement: Decreased FHR Baseline: 135 Variability: Moderate 6-25 bpm Accelerations: 15x15 and Prolonged Decelerations: None NST Results: Reactive Note NST Note Note: Patient presented for after hours NST due to decreased movement toda y. She had been eating and taking in fluids today as normal, and no signs of labor or LOF / vaginal bleeding. NST is reactive and patient is reassured by frequent movement by end of NST. Will keep her next appointment as scheduled or call with any other concerns. JOSE NST Reviewed and Verified by: Jackie Mcginnis
[2021-05-22 21:07] VITALS: BP 119/77; PULSE 88; TEMP 36.8
== END 2021-05-22 21:00 | disposition home or self-care (01) ==
LOC: BCD 19:51 → OBS 20:12
PROVIDERS: PCP Nurse Practitioner Family; Visit Provider Advanced Practice Midwife
DX: O36.8130 Decreased fetal movements, third trimester, not applicable or unspecified (principal); Z3A.38 38 weeks gestation of pregnancy
CPT/HCPCS: 59025

== ENCOUNTER 2021-05-26 13:45 | Outpatient (CLI) | payer MEDICAID, SELFPAY ==
[2021-05-26 14:00] VITALS: BP 129/88; PULSE 81; TEMP 37.3
[2021-05-26 14:56] LABS: HCT 37.5 % (36.0-46.0); HGB 12.5 g/dL (11.2-15.7); MCH 29.7 pg (27.0-33.0); MCHC 33.3 % (32.0-36.0); MCV 89.1 fL (80-95); MPV 10.3 fL (8.0-11.0); Platelet Count 264 10^3/uL (130-400); RBC 4.21 10^6/uL (3.93-5.22); RDW 13.7 % (11.7-14.6); RDW-SD 44.7 fL; WBC 9.63 10^3/uL (4.4-10.8)
[2021-05-26 14:59] VITALS: BP 129/88; PULSE 81; TEMP 37.3
[2021-05-26 15:10] VITALS: BP 128/86; PULSE 81
--- NOTE | 2021-05-26 15:11 | W.OBNST ---
Date of service: 05/26/21 Time of Service: 15:11 NST Evaluation Reason for NST Reasons for Nonstress Test: GESTATIONAL HYPERTENSION Gestational Age Gestational Age in Weeks and Days: 39 Weeks and 0Days Test and Monitor Explained Test/Monitor Explained: Test Explained, Monitor Explained and Patient Verbalized Understanding Vital Signs Blood Pressure: 129/88 Pulse: 81 Temperature: 99.1 F NST Information Date on Monitor: 05/26/21 Time on Monitor: 13:55 Date off Monitor: 05/26/21 Time off Monitor: 14:51 Total Time on Monitor: 56 NST Interventions: PO Hydration and Reposition Patient Contraction Frequency: 24 NST Evaluation Patient States Movement: Present FHR Baseline: 130 Variability: Moderate 6-25 bpm Accelerations: 15x15 Decelerations: None NST Results: Reactive Note NST Note Note: repeat BP 122/85, 128/86. No edema. She denies headache or visual changes. SVE 1 cm/50 % soft, posterior /-1 Signs of labor reviewed. RT center 05/28 for repeat NST. preeclampsia panel drawn. Await results. Discussed induction of labor when staffing allows. NST Reviewed and Verified by: Jackie Mckeon
[2021-05-26 15:13] VITALS: BP 129/88; PULSE 81; TEMP 37.3
[2021-05-26 15:25] LABS: PROTEIN 29.4 mg/dL
[2021-05-26 15:27] LABS: COMMENT (LAB VIEW ONLY) 41.94 mg/dL
[2021-05-26 15:55] LABS: ALT 12 U/L (14-59); AST 11 U/L (15-37); Albumin 2.5 g/dL (3.4-5.0); Alkaline Phosphatase 162 U/L (46-116); Anion Gap 10.1 mmol/L (3-11); BUN 11 mg/dL (7-18); Bilirubin, Total 0.1 mg/dL (0.2-1.0); CO2 21.9 mmol/L (21.0-32.0); CREATININE 0.8 mg/dL (0.55-1.02); Calcium 8.6 mg/dL (8.5-10.1); Chloride 107 mmol/L (98-107); Glucose 75 mg/dL (74-106); Potassium 4.5 mmol/L (3.5-5.1); Sodium 139 mmol/L (136-145); Total Protein 6.3 g/dL (6.4-8.2); Uric Acid 4.5 mg/dL (2.6-6.0)
[2021-05-27 20:21] VITALS: BP 126/80; PULSE 73
[2021-05-27 22:22] VITALS: BP 127/76; PULSE 65
[2021-05-28] VITALS (29 sets, daily range): BP systolic 110–133; BP diastolic 59–97; PULSE 62–179
== END 2021-05-26 16:24 | disposition home or self-care (01) ==
LOC: BCD 13:46 → OBS 13:58
PROVIDERS: PCP Nurse Practitioner Family; Visit Provider Advanced Practice Midwife
DX: O13.3 Gestational [pregnancy-induced] hypertension without significant proteinuria, third trimester (principal); Z3A.39 39 weeks gestation of pregnancy
CPT/HCPCS: 59025; 36415; 80053; 85027; 82565; 84156; 84550

== ENCOUNTER 2021-05-27 17:00 | Inpatient (IN) | payer MEDICAID, SELFPAY ==
[2021-05-27 17:11] VITALS: BP 126/84; PULSE 93; RESP 16; TEMP 36.5; O2SAT 98
[2021-05-27 17:48] LABS: HCT 35.4 % (36.0-46.0); HGB 11.8 g/dL (11.2-15.7); MCH 29.8 pg (27.0-33.0); MCHC 33.3 % (32.0-36.0); MCV 89.4 fL (80-95); MPV 10.3 fL (8.0-11.0); Platelet Count 243 10^3/uL (130-400); RBC 3.96 10^6/uL (3.93-5.22); RDW 13.6 % (11.7-14.6); RDW-SD 44.6 fL
--- NOTE | 2021-05-27 17:57 | HPE_ITS ---
Date of service: 05/27/21 Time of Service: 17:57 Assessment and Plan Assessment and plan (1) Preeclampsia: Status: Acute Assessment and plan: will continue to monitor B.P. Consider preeclampsia labs if indicated. (2) Elective induction of labor planned: Status: Acute Assessment and plan: Admit to Center. Comfort measures. Covid- 19 test. Reviewed options for cervical ripening with desi and her partner and mother. Will start oral misoprostol per protocol. nicorette lozenges PRN, omeprazole. Anticipate . (3) Gestational diabetes: Status: Acute Assessment and plan: diet controlled OB-HPI Labor/Delivery History of Present Illness Reason for Visit: Induction Chief Complaint: Scheduled Induction of Labor Indication for Induction: PreEclampsia. BERTA Calculator Estimated Delivery Date Method Current WG Current Estimate 06/02/21 Ultrasound #1 39w 1d Other Estimates 05/28/21 LMP (Certain) 39w 6d Comments: Desi had elevated B.P in the office yesterday 120s/85-90. NST and preeclampsia panel showed protein/creatinene ratio 0.71. Admitted for cervical ripening for preeclampsia. History of Present Expected Delivery Route/Plan - CNM FOB/boyfriend - Ellis Shirley (first child) BB yes to circ GBS negative support team: FOB (vaccinated) and mother (not vaccinated) Desires to use tub for labor, maybe for Dx'ed GDM at 30 wks. Plan for IOL @ 40 wks Specific Issues/Plan 1. Pt & sister and their mother have MTHFR variant, heterozygous. Brother is homozygous. 1a. Testing done @ [facility] because pt's mother had a PE, will request records. Rec'ed & scanned to EMR. 1b. D/t hx MTHFR and hx of seizures, pt accepts [facility] tele[facility], level 2 sono, MFM consult & recommendations @ 18-20 wks 1c. [facility] consult indicates no adverse outcome expected due to pt's carrier status of MTHFR gene mutation. 2. 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 Severe migraine immediately prior to seizure, also gets less severe migraines without seizure 2b. [facility] notes 01/07 & 01/12 show nml scan, no MFM rec's, genetics advises Peds to be notified of fam hx seizures 3. Hx anxiety/panic attacks, no meds x5 yrs, feels stable & under control now 4. Right side sciatica, ref to pt , seen 12/28, PT plan is to see pt 1- 2x/wk for 12 wks 5. Desires [place] and CF screening, drawn 11/16/20- neg [place] results, CF carrier negative 6. Smoker, trying to decrease/quit, using nicorette gum to assist 6a. 7-8 cigarettes per day-counselled to continue to try to decrease. 7. ED visit at 19 wks for left side pain: bilateral hydronephrosis dx'ed. NSAIDS rec during 2nd trimester. 8. At 20 wks, pt is fully COVID vaccinated, FOB's 2nd dose given last week. 9. PCN allergy: ask screening questions , All NO to 2-6, low risk and testing recommended, 9a. desires to wait until GBS status is known, if GBS+, is interested in allergy testing @ [facility] 9b. Offered allergy testing after the . 10. Glucola at 28 wks =167; 3 hr GTT @ 30 wks - 83, 152, 165, 148 10a. Testing supplies ordered and instructions given, referred to nutrition 03/25 10b. All BS readings WNL. 10c. Occasional elevated post-prandial after meals (140-163), adjustments discussed.. 11. Hgb @ 28 wks 10.4, recommend iron supplement 12. Desi and her partner received covid vaccine 13. 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 Depressive disorder Family history of diabetes mellitus (DM) Jane type 2a hyperlipoproteinemia Hypercholesterolemia Myoclonus Obesity Seizure Tobacco dependence Social History Smoking/Tobacco Use Status: Current every day Smoking risk assessment performed?: Yes Alcohol Intake: never Drug use: Never Substance use type: does not use Do you feel safe at home: Yes Do you feel safe in your relationship?: Yes History History 1 Para 0 Hx # Term Pregnancies 0 Multiple births 0 Hx # Pregnancies 0 Ectopic pregnancies 0 AB induced 0 Hx Number of Living Children 0 AB spontaneous 0 Meds Allergies and Home Medications Allergies Allergy/AdvReac Type Severity Reaction Status Date / Time erythromycin base Allergy Mild Verified 05/26/21 13:24 oxybutynin [From Ditropan] Allergy Mild Verified 05/26/21 13:24 sulfamethoxazole Allergy Mild Verified 05/26/21 13:24 [From Bactrim] trimethoprim [From Bactrim] Allergy Mild Verified 05/26/21 13:24 penicillin V [From Pen-Vee K] Allergy hives Verified 05/26/21 13:24 Penicillins Allergy Verified 05/26/21 13:24 Home Medications Medication Instructions Recorded Confirmed Type PNV cmb#95-ferrous fumarate-FA 1 tab PO DAILY 10/16/20 05/18/21 History [ Multivitamins] diphenhydramine-acetaminophen 1 tab PO HS 10/16/20 05/18/21 History [Tylenol PM Extra Strength] nicotine (polacrilex) 2 mg gum 2 mg BUCCAL Q2H #40 ea 10/22/20 05/18/21 Rx ferrous sulfate 324 mg (65 mg 324 mg PO DAILY #90 tab 03/16/21 05/18/21 Rx iron) tablet,delayed release blood sugar diagnostic #100 ea 03/25/21 05/18/21 Rx blood-glucose meter #1 ea 03/25/21 05/18/21 Rx lancets 28 gauge #100 ea 03/25/21 05/18/21 Rx magnesium oxide 500 mg tablet 500 mg PO DAILY #90 tab 03/28/21 05/18/21 Rx omeprazole magnesium 20 mg 20 mg PO DAILY #60 tab 04/18/21 05/18/21 Rx tablet,delayed release Exam Physical Exam Vital signs: Temp Pulse Resp BP Pulse Ox 97.7 F 93 H 16 126/84 98 05/27/21 17:11 05/27/21 17:11 05/27/21 17:11 05/27/21 17:11 05/27/21 17:11 Vital Signs Reviewed: Yes Constitutional Constitutional: no acute distress Detailed Labor and Delivery Exam Dilation: 1.5 Effacement (%): 75 station: -1 Cervix position: posterior Consistency: soft Parmar Score: Cervical Points Exam 0 1 2 3 Dilation Closed 1-2cm 3-4 cm 5-6cm Effacement 0-30% 40-50% 60-70% 80% Consistency Firm Medium Soft Station -3 -2 -1,0 +1,+2 Position Posterior Mid Anterior Amniotic Membrane Status: Intact Contraction Frequency(min): occasional Contraction Duration(sec): 50 Contraction Intensity: Mild Fetus A Heart Rate Baseline: 130 Monitor Accelerations: 15 X 15 Monitor Decelerations: None Variability: Moderate (6-25 BPM) Presentation: Cephalic Categories: Category I Respiratory Exam Respiratory Exam: Normal Cardiovascular Exam Cardiovascular Exam: Normal Abdominal Exam Abdominal Exam: Normal Rectal Exam Rectal Exam: Normal Exam Exam: Normal Skin Exam Skin Exam: Normal Psychiatric Exam Psychiatric Exam: Normal Results Abnormal Lab Findings: Abnormal Labs 05/27/21 17:38 Hct 35.4 L Risk Assessment Risk for Shoulder Dystocia Historical/Initial OB: NEGATIVE FOR: Pelvic Abnormality, Pre- BMI>30, Previous Shoulder Dystocia or Previous Macrosomia 40 Weeks: NEGATIVE FOR: EFW> 4500 gms, Maternal Weight Gain >40lb or Post Dates Counseling: increased risk d/t diet controlled GDM Delivery Plan @ 36wks: NVD at 40 weeks Risk for Pre-Eclampsia Daily Dose ASA Indicated: No Date Initiated/Initials: not indicated jk Yes, if one or more: NEGATIVE FOR: Hx Pre-E/Gest HTN, Chronic HTN, Multiple Gestation, Pre-gestational DM, Renal Disease, Systemic Lupus or APA Syndrome Yes, if 2 or more: POSITIVE FOR: Nulliparity; NEGATIVE FOR: Age>= 35 yrs, >10yr btwn pregnancies, BMI>30, ethinicty, Mother/Sister w/ Pre-E or Previous IUGR Risk for Post- Hemorrhage Initial: NEGATIVE FOR: Multiple Gestation, Previous PPH, Known Clotting Deficiency, Grand Multiparity or Anticoagulation Interventions: gestational HTN identified at 39 wks Counseled re: Active Management: Yes Risks Reviewed Risks Reviewed Upon Admission: Yes
[2021-05-27] MEDS: miSOPROStol 25 MCG TAB PO ×2 (18:18→22:20)
[2021-05-27 20:20] VITALS: BP 126/80; PULSE 73
[2021-05-27 20:22] LABS: Source Nasal/Nares
[2021-05-27 21:58] LABS: COVID-19 PCR Negative (Negative)
[2021-05-27 22:20] VITALS: BP 127/76; PULSE 65
[2021-05-27] MEDS: Zolpidem 5 MG TAB 10 MG PO (22:21)
[2021-05-27 22:23] VITALS: TEMP 36.4
[2021-05-28] VITALS (13 sets, daily range): BP systolic 113–133; BP diastolic 62–92; PULSE 60–99; RESP 16–18; TEMP 36.6–37.3; BMI 32.8
--- NOTE | 2021-05-28 02:48 | W.PM.OBNL1 ---
Date of service: 05/28/21 Time of Service: 02:48 Informed Consent Informed Consent: Induction of Labor Contractions Contraction Frequency(min): irregular Contraction Duration(sec): 40-50 Intensity: Mild Fetus A Monitor: External (US) Heart Rate Baseline: 120 Variability: Moderate (6-25 BPM) Categories: Category I FHR Rhythm: Regular Accelerations: 15 X 15 Decelerations: None Amniotic Membrane Status: Intact Assessment and Plan Assessment and plan (1) Elective induction of labor planned: Status: Acute Assessment and plan: variability is now moderate with accellerations. I reommended continuing to administer misoprostol 25 mcg PO every 4 hours per protocol . Objective Abnormal lab results 05/27/21 Range/Units 17:38 Hct 35.4 L (36.0-46.0) % Temp Pulse Resp BP Pulse Ox 97.5 F L 93 H 16 126/84 98 05/27/21 22:23 05/27/21 17:11 05/27/21 17:11 05/27/21 17:11 05/27/21 17:11 Laboratory Results WBC 10.60 10^3/uL (4.4-10.8) 05/27/21 17:38 RBC 3.96 10^6/uL (3.93-5.22) 05/27/21 17:38 Hgb 11.8 g/dL (11.2-15.7) 05/27/21 17:38 Hct 35.4 % (36.0-46.0) L 05/27/21 17:38 MCV 89.4 fL (80-95) 05/27/21 17:38 MCH 29.8 pg (27.0-33.0) 05/27/21 17:38 MCHC 33.3 % (32.0-36.0) 05/27/21 17:38 RDW 13.6 % (11.7-14.6) 05/27/21 17:38 Plt Count 243 10^3/uL (130-400) 05/27/21 17:38 MPV 10.3 fL (8.0-11.0) 05/27/21 17:38 COVID-19 Source Nasal/Nares 05/27/21 18:10 SARS-CoV-2 (PCR) Negative (Negative) 05/27/21 18:10 Patient ABO/Rh A Positive 05/27/21 17:38 Antibody Screen NEGATIVE 05/27/21 17:38 Subjective Patient Reports: No new Complaints Interval history since last seen: Desi has received 2 doses of misoprostol. She took ambien to sleep and has been sleeping. Her contractions are mild and irregular. I received a call from the RN caring for her to review the tracing. I reviewed the tracing and there are cccasional periods of minimal variability noted with reactiivity. Currently moderate variability noted. B.P. 126/84. Results Hemoglobin/Hematocrit: Hgb 11.8 g/dL (11.2-15.7) 05/27/21 17:38 Hct 35.4 % (36.0-46.0) L 05/27/21 17:38 Abnormal Lab Findings: Abnormal Labs 05/27/21 17:38 Hct 35.4 L
[2021-05-28] MEDS: miSOPROStol 25 MCG TAB PO ×2 (03:05→09:46)
[2021-05-28] MEDS: Terbutaline 1 MG/ML VIAL 0.25 MG SC (04:34)
[2021-05-28] MEDS: Omeprazole 20 MG CAPCR PO (09:15)
--- NOTE | 2021-05-28 11:00 | W.PM.OBNL1 ---
Date of service: 05/28/21 Time of Service: 11:00 Informed Consent Informed Consent: Induction of Labor Pelvic Exam Dilation: 5 Effacement (%): 90 station: +1 Cervix Position: mid Consistency: soft Vaginal Exam Presentation: Cephalic Contractions Monitor Mode: External Contraction Frequency(min): every 3 min Contraction Duration(sec): 50-60 Intensity: Moderate/Strong Fetus A Monitor: External (US) Heart Rate Baseline: 140 Variability: Moderate (6-25 BPM) Categories: Category I FHR Rhythm: Regular Accelerations: 15 X 15 Decelerations: None Amniotic Membrane Status: Intact Assessment and Plan Assessment and plan (1) Elective induction of labor planned: Status: Acute Assessment and plan: Comfort measuresPrepare patient for epidural. Anticipate (2) Preeclampsia: Status: Acute Assessment and plan: B.P. has been WNL. No edema or other symptoms. Will continue to assess Objective Abnormal lab results 05/27/21 Range/Units 17:38 Hct 35.4 L (36.0-46.0) % Temp Pulse Resp BP Pulse Ox 98.6 F 88 18 113/79 98 05/28/21 09:50 05/28/21 09:50 05/28/21 09:50 05/28/21 09:50 05/27/21 17:11 Laboratory Results WBC 10.60 10^3/uL (4.4-10.8) 05/27/21 17:38 RBC 3.96 10^6/uL (3.93-5.22) 05/27/21 17:38 Hgb 11.8 g/dL (11.2-15.7) 05/27/21 17:38 Hct 35.4 % (36.0-46.0) L 05/27/21 17:38 MCV 89.4 fL (80-95) 05/27/21 17:38 MCH 29.8 pg (27.0-33.0) 05/27/21 17:38 MCHC 33.3 % (32.0-36.0) 05/27/21 17:38 RDW 13.6 % (11.7-14.6) 05/27/21 17:38 Plt Count 243 10^3/uL (130-400) 05/27/21 17:38 MPV 10.3 fL (8.0-11.0) 05/27/21 17:38 COVID-19 Source Nasal/Nares 05/27/21 18:10 SARS-CoV-2 (PCR) Negative (Negative) 05/27/21 18:10 Patient ABO/Rh A Positive 05/27/21 17:38 Antibody Screen NEGATIVE 05/27/21 17:38 Subjective Interval history since last seen: Desi slept this morning from 5:30 - 7:30. She awoke with stronger contractions and requested to use nitrous oxide and to have an epidural. She si coping very well with her contractions and has support from her partner and her mother. B.P.113/79. She received 4th dose of misoprostol at 0946 after showering. Results Hemoglobin/Hematocrit: Hgb 11.8 g/dL (11.2-15.7) 05/27/21 17:38 Hct 35.4 % (36.0-46.0) L 05/27/21 17:38 Abnormal Lab Findings: Abnormal Labs 05/27/21 17:38 Hct 35.4 L
--- NOTE | 2021-05-28 11:07 | ANES.PREOP_ITS ---
General Info Date of Service Date Performed: 05/28/21 Height: 5 ft 7 in Weight: 95.254 kg Body Mass Index (BMI): 32.8 Meds Allergies and Home Medications Allergies Allergy/AdvReac Type Severity Reaction Status Date / Time erythromycin base Allergy Mild Verified 05/26/21 13:24 oxybutynin [From Ditropan] Allergy Mild Verified 05/26/21 13:24 sulfamethoxazole Allergy Mild Verified 05/26/21 13:24 [From Bactrim] trimethoprim [From Bactrim] Allergy Mild Verified 05/26/21 13:24 penicillin V [From Pen-Vee K] Allergy hives Verified 05/26/21 13:24 Penicillins Allergy Verified 05/26/21 13:24 Home Medication Medication Instructions Recorded PNV cmb#95-ferrous fumarate-FA 1 tab PO DAILY 10/16/20 [ Multivitamins] diphenhydramine-acetaminophen 1 tab PO HS 10/16/20 [Tylenol PM Extra Strength] nicotine (polacrilex) 2 mg gum 2 mg BUCCAL Q2H #40 ea 10/22/20 ferrous sulfate 324 mg (65 mg 324 mg PO DAILY #90 tab 03/16/21 iron) tablet,delayed release blood sugar diagnostic #100 ea 03/25/21 blood-glucose meter #1 ea 03/25/21 lancets 28 gauge #100 ea 03/25/21 magnesium oxide 500 mg tablet 500 mg PO DAILY #90 tab 03/28/21 omeprazole magnesium 20 mg 20 mg PO DAILY #60 tab 04/18/21 tablet,delayed release Current Visit Medications: Current Medications Generic Name Dose Route Start Last Admin Trade Name Freq PRN Reason Stop Dose Admin Fentanyl/Ropivacaine 200 ml 05/28/21 11:00 Fentanyl/Ropivacaine 2 Mcg/Ml And 0.1% 200 Ml Cadd Cassette EP DIRECTED CAROL Ringer's Solution 500 mls @ 500 mls/hr 05/28/21 10:47 IV 05/28/21 11:46 BOLUS ONE Misoprostol 25 mcg 05/27/21 18:00 05/28/21 09:57 Misoprostol 25 Mcg Tab PO Not Given Q4H CAROL Nicotine 4 mg 05/28/21 07:30 Nicotine 4 Mg Lozg UD Q4H PRN PRN Omeprazole 20 mg 05/28/21 07:30 05/28/21 09:15 Omeprazole 20 Mg Capcr PO 20 mg DAILY@0730 CAROL Administration Terbutaline Sulfate 0.25 mg 05/27/21 17:11 Terbutaline 1 Mg/Ml Vial SC PRN PRN Terbutaline Sulfate 0.25 mg 05/27/21 17:55 05/28/21 04:34 Terbutaline 1 Mg/Ml Vial SC 0.25 mg PRN PRN Administration PFSH Active Problems Active Problems: Problem Status Onset Code Elective induction of labor planned Preeclampsia O14.90 Vaginal discharge N89.8 Anemia D64.9 Family history of diabetes mellitus (DM) Z83.3 Gestational diabetes O24.419 Elevated glucose R73.09 Erythromycin allergy Z88.1 Allergy to penicillin Z88.0 Acute left flank pain R10.9 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 Migraine NEC/not intrcbl G43.809 History of seizure Z87.898 Sciatica of right side M54.31 Arm pain M79.603 Z34.90 Medical History Medical History (Updated 05/27/21 @ 18:03 by Jackie Mckeon CNM) 5,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 Depressive disorder Family history of diabetes mellitus (DM) Jane type 2a hyperlipoproteinemia Hypercholesterolemia Myoclonus Obesity Seizure Tobacco dependence Tobacco Smoking/Tobacco Use Status: Current every day Alcohol Alcohol Intake: never Substance Use Substance use: Never Substance use type: does not use Prental History History 1 Para 0 Hx # Term Pregnancies 0 Multiple births 0 Hx # Pregnancies 0 Ectopic pregnancies 0 AB induced 0 Hx Number of Living Children 0 AB spontaneous 0 Vital Signs and Lab Results Vital Signs Most Recent Vital Signs in EMR: Most Recent Vital Signs Temp Pulse Resp BP Pulse Ox 37.0 C 88 18 113/79 98 05/28/21 09:50 05/28/21 09:50 05/28/21 09:50 05/28/21 09:50 05/27/21 17:11 Lab Results Result Diagrams: 05/27/21 17:38 Blood Type / Crossmatch: Patient ABO/Rh A Positive 05/27/21 17:38 05/27/21 Antibody Screen NEGATIVE 05/27/21 17:38 05/27/21 Complete Blood Count: White Blood Count 10.60 10^3/uL (4.4-10.8) 05/27/21 17:38 05/27/21 Red Blood Count 3.96 10^6/uL (3.93-5.22) 05/27/21 17:38 05/27/21 Hemoglobin 11.8 g/dL (11.2-15.7) 05/27/21 17:38 05/27/21 Hematocrit 35.4 % (36.0-46.0) L 05/27/21 17:38 05/27/21 Platelet Count 243 10^3/uL (130-400) 05/27/21 17:38 05/27/21 Complete Metabolic Panel: Sodium Level 139 mmol/L (136-145) 05/26/21 14:45 05/26/21 Potassium Level 4.5 mmol/L (3.5-5.1) 05/26/21 14:45 05/26/21 Chloride Level 107 mmol/L (98-107) 05/26/21 14:45 05/26/21 Carbon Dioxide Level 21.9 mmol/L (21.0-32.0) 05/26/21 14:45 05/26/21 Blood Urea Nitrogen 11 mg/dL (7-18) 05/26/21 14:45 05/26/21 Creatinine 0.8 mg/dL (0.55-1.02) 05/26/21 14:45 05/26/21 Estimated GFR/1.73 m2 >= 60.00 (mL/min/1.73m2) 05/26/21 14:45 05/26/21 Calcium Level 8.6 mg/dL (8.5-10.1) 05/26/21 14:45 05/26/21 Albumin 2.5 g/dL (3.4-5.0) L 05/26/21 14:45 05/26/21 Glucose Level 75 mg/dL (74-106) 05/26/21 14:45 05/26/21 Liver Function Panel: Alanine Aminotransferase (ALT/SGPT) 12 U/L (14-59) L 05/26/21 14:45 05/26/21 Aspartate Amino Transf (AST/SGOT) 11 U/L (15-37) L 05/26/21 14:45 05/26/21 Coagulation Panel: No Data to Display Cardiac Panel: No Data to Display Arterial Blood Gas: No Data to Display Venous Blood Gas: No Data to Display Pancreas Panel: No Data to Display Thyroid Panel: No Data to Display Infectious Disease: Coronavirus (COVID-19)(PCR) Negative (Negative) 05/27/21 18:10 05/27/21 Coronavirus 2019 Source Nasal/Nares 05/27/21 18:10 05/27/21 Blood Cultures: No Data to Display Toxicology Panel: Urine Amphetamines Screen Negative (Negative) 05/04/21 10:00 05/04/21 Urine Benzodiazepines Screen Negative (Negative) 05/04/21 10:00 05/04/21 Urine Barbiturates Screen Negative (Negative) 05/04/21 10:00 05/04/21 Urine Cocaine Screen Negative (Negative) 05/04/21 10:00 05/04/21 Urine Methadone Screen Negative (Negative) 05/04/21 10:00 05/04/21 Urine Opiates Screen Negative (Negative) 05/04/21 10:00 05/04/21 Ur Tricyclic Antidepressants Screen Negative (Negative) 05/04/21 10:00 0 05/04/21 Ur Tetrahydrocannabinol (THC) Scrn Negative (Negative) 05/04/21 10:00 05/04/21 Panel: No Data to Display Anesthesia Assessment and Plan Anesthesia History Personal History: No History of Anesthesia Complications Family History: No Family History of Anesthesia Complications Exercise Tolerance Exercise Tolerance: Metabolic Equivalents>4 Cardiac & Pulmonary Exam Cardiac Exam: Normal S1/S2 Heart Sounds Pulmonary Exam: Clear Bilateral Breath Sounds Airway Exam Known Difficult Airway: No Mallampati Class: 4 Mouth Opening: Narrow (< 3cm) Thyromental Distance: Greater than 3 cm Neck Range of Motion: Full ROM Neck Circumference: Normal Teeth Condition: Normal Dentition ASA Classification ASA Score: ASA 2 Emergency Case?: No NPO Status NPO Status: Full Stomach Status Status: Other (prego) Anesthesia Plan Resuscitation Status: Full Code Anesthesia Technique: Epidural Anesthesia Airway Planned: Natural Airway Monitors Used: Standard Monitors Preoperative Comments:: 26 yo primip for IOL due to preeclampsia. Sig PMHx: preeclampsia, GD, GERD, Anxiety/panic attacks, smoker, MTHFR, sz. Currently at 5 cm, 90%, +1, requesting epidural. Plan: labor epidural.
--- NOTE | 2021-05-28 11:49 | W.ANESNEU ---
Epidural/Spinal Catheter Date Performed: 05/28/21 Procedure Start: 11:18 Procedure Stop: 12:00 Requesting Provider: Jackie Mckeon Procedure Location: Obstetrics Reason Performed: Labor Epidural Standard Monitors Applied: Blood Pressure and SpO2 Patient Position: Sitting Sedation Given (Indicate Dose Given): No Sedation given Patient Mental Status: Awake Sterility: Hand Hygiene, Surgical Cap, Surgical Mask, Sterile Gloves and Sterile Drape/Sheet Procedure Location: L3-L4 Interspace Epidural Needle: Tuohy 17 Guage Needle Length: 3.5 Inch Needle Approach: Midline Epidural Procedure: Skin Prepped, 1% Lidocaine to skin and subcutaneous tissue with 25G needle and JAMAL to Saline Used Catheter Placed?: Catheter Placed Test Dose (Indicate Dose Given): 3ml 1.5% Lidocaine with 1:200K Epinephrine Given Loss of Resistance Depth (cm): 7 Catheter depth at skin (cm): 14 Dressing: Sorbaview Dressing Placed, Mastisol Used and Dressing reinforced with Tape Epidural Provider Bolus (Indicate Dose Given): Total Ropivacaine 0.1% with Fentanyl 2mcg/ml Given from pump (ml) Dose:: 7 mL + 3 mL (10 mL total). Additives (Indicate Dose Given ): None Infusion Medication: Medication Infusion Began Medication Infusion: Ropivacaine 0.1% with Fentanyl 2mcg/ml Maintenance Infusion Rate (ml/hour): 10 PCEA Bolus Dose (ml): 5 Block Level: N/A Paresthesia: None Ultrasound: Not Used Number of Attempts (See previous attempts in note section): 1 Procedure Tolerated: No Complications Procedure Outcome: Successful Procedure Comment:: Bone contacted consistently on straight midline approach. Pt states feel needle on the right, needle directed slightly left with JAMAL at 7 CM catheter threaded easily. a 7 mL load was preformed off of the pump. After load the contraction was much more tolerable, expect for a completely uncovered area on her lower right back/hip. Discussed why this can happen, and an additional 3 mL bolus was given while she was positioned on her right side. She was checked on after being on her right side for a short period of time and her hip feels much better. She was educated on the PCEA, and she was encouraged to reach out with any questions or concerns. Performed By: Jesus Guy
--- NOTE | 2021-05-28 13:02 | W.PM.OBNL1 ---
Date of service: 05/28/21 Time of Service: 13:02 Informed Consent Informed Consent: Induction of Labor Pelvic Exam Dilation: 10 station: +2 Vaginal Exam Presentation: Cephalic Pooling: Positive Contractions Monitor Mode: External Contraction Frequency(min): every 2-3 Contraction Duration(sec): 60 Intensity: Strong Fetus A Monitor: External (US) Heart Rate Baseline: 130 Variability: Moderate (6-25 BPM) Categories: Category I FHR Rhythm: Regular Accelerations: 15 X 15 Decelerations: None Amniotic Membrane Status: Ruptured Amniotic Fluid: Clear Assessment and Plan Assessment and plan (1) Elective induction of labor planned: Status: Acute Assessment and plan: anticipate . Assist with pushing. Objective Abnormal lab results 05/27/21 Range/Units 17:38 Hct 35.4 L (36.0-46.0) % Temp Pulse Resp BP Pulse Ox 99.0 F 88 18 125/76 98 05/28/21 11:50 05/28/21 09:50 05/28/21 09:50 05/28/21 11:50 05/27/21 17:11 Laboratory Results WBC 10.60 10^3/uL (4.4-10.8) 05/27/21 17:38 RBC 3.96 10^6/uL (3.93-5.22) 05/27/21 17:38 Hgb 11.8 g/dL (11.2-15.7) 05/27/21 17:38 Hct 35.4 % (36.0-46.0) L 05/27/21 17:38 MCV 89.4 fL (80-95) 05/27/21 17:38 MCH 29.8 pg (27.0-33.0) 05/27/21 17:38 MCHC 33.3 % (32.0-36.0) 05/27/21 17:38 RDW 13.6 % (11.7-14.6) 05/27/21 17:38 Plt Count 243 10^3/uL (130-400) 05/27/21 17:38 MPV 10.3 fL (8.0-11.0) 05/27/21 17:38 COVID-19 Source Nasal/Nares 05/27/21 18:10 SARS-CoV-2 (PCR) Negative (Negative) 05/27/21 18:10 Patient ABO/Rh A Positive 05/27/21 17:38 Antibody Screen NEGATIVE 05/27/21 17:38 Subjective Interval history since last seen: Received an epidural with good effect. SROM occurred prior to epidurall for small amount of clear fluid. Feeling pressure and SVE revealed 10 cms. Results Hemoglobin/Hematocrit: Hgb 11.8 g/dL (11.2-15.7) 05/27/21 17:38 Hct 35.4 % (36.0-46.0) L 05/27/21 17:38 Abnormal Lab Findings: Abnormal Labs 05/27/21 17:38 Hct 35.4 L
[2021-05-28] MEDS: Oxytocin/Normal Saline 30 UNIT/500 ML BAG 334 UNITS IV (14:00)
--- NOTE | 2021-05-28 14:26 | OBVDS_ITS ---
Date of service: 05/28/21 Time of Service: 14:26 OB Labor/ Delivery Information Baby A Delivery Delivery Method: Spontaneaous Presentation: Vertex Vertex Position: Right Occipital Anterior Cord Description-Baby A: 3 Vessels Amniotic Fluid: Clear Estimated Blood Loss: 150 Delivery Outcome: Liveborn Infant Transferred: Remains with Mother Providers Nurse Project Developer: Jackie Mckeon Rayon Winder: Jesus Guy Nurse: Zunilda Lewis Nurse: Virgen Adams Labor/Delivery Information Number of Babies in Womb: 1 Steroids Given: None Reason Steroids Not Administered: N/A Group Beta Strep: N/A Antibiotics Administered: No Rubella Status: Immune Blood Type: A+ Varicella Immunity: Immune Born En Route: No Maternal Complications: None Stages of Labor Onset of Labor Date: 05/28/21 Onset of Labor Time: 10:39 Complete Dilatation Date: 05/28/21 Complete Dilatation Time: 12:43 Labor - Stage 1 Duration: 0 minutes ROM Baby A: 05/28/21 ROM Baby A: 11:10 ROM Total Time- Baby A: [id number] Infant Delivery Date-Baby A: 05/28/21 Infant Delivery Time-Baby A: 13:50 Labor Stage 2 Duration: 1 hours and 7 minutes Placenta Delivery Date-Baby A: 05/28/21 Placenta Delivery Time-Baby A: 13:59 Labor-Stage 3 Duration: 9 minutes Total Length of Labor-Baby A: 3 hours and 11 minutes Placenta Status: Delivered Baby A Gender: Male Gestational Status: Term (39-41.6 wks) Gestational Age in Weeks/Days: 39 Weeks and 2 Days Score-1 Minute Interval(Baby A) Heart Rate-1 minute: 100 BPM or Greater Respiratory Effort- 1 minute: Spontaneous/Strong Cry Muscle Tone-1 minute: Active Movement Reflex Response-1 minute: Prompt Response Color-1 minute: Bluish Hands or Feet Total Score-1 minute: 9 Score-5 Minute Interval(Baby A) Heart Rate- 5 minute: 100 BPM or Greater Respiratory Effort-5 minute: Spontaneous/Strong Cry Muscle Tone-5 minute: Active Movement Reflex Response-5 minute: Prompt Response Color-5 minute: [place]/No Cyanosis Total Score- 5 minute: 10 Interventions Repair of Laceration Type: Perineal , Laceration Extension: First Degree (repaired with one interrupted suture) . Sponge Count Correct: No Sponges Placed in Vagina , Sharp Count Correct: Yes . Laceration Repair Note: left periurethral not repaired. Small perineal tear approximated with one interrupted suture
[2021-05-28] MEDS: Acetaminophen 325 MG TAB 650 MG PO (17:35)
[2021-05-29] MEDS: Acetaminophen 325 MG TAB 650 MG PO ×3 (00:47→16:33)
[2021-05-29 01:00] VITALS: BP 103/65; PULSE 68; RESP 16; TEMP 36.8
[2021-05-29] MEDS: Ibuprofen 600 MG TAB PO ×3 (05:42→22:10)
[2021-05-29 07:15] VITALS: BP 115/78; PULSE 82; RESP 18; TEMP 36.6; O2SAT 97
[2021-05-29 07:53] LABS: HCT 34.1 % (36.0-46.0); HGB 11.3 g/dL (11.2-15.7); MCH 29.7 pg (27.0-33.0); MCHC 33.1 % (32.0-36.0); MCV 89.5 fL (80-95); Platelet Count 244 10^3/uL (130-400); RBC 3.81 10^6/uL (3.93-5.22); RDW 13.8 % (11.7-14.6); RDW-SD 45.1 fL; WBC 12.98 10^3/uL (4.4-10.8)
[2021-05-29] MEDS: Omeprazole 20 MG CAPCR PO (08:10)
--- NOTE | 2021-05-29 08:13 | W.PM.OBPNV1 ---
Date of service: 05/29/21 Time of Service: 08:13 Assessment and Plan Assessment and plan (1) Term of male : Status: Acute Assessment and plan: Baby manuel Gomez's weight at is 5-13. Desi is caring for baby independently with assistance. Pain is managed well with oral analgesics. Voiding without difficulty. A - stable mother and baby, Post day 1, SGA baby P - Discharge to home tomorrow if feeding is established. . Routine post instructions. [facility] Subjective Subjective Patient comments: Pain well controlled baby status: Strong Bonding Observed feeding status: Exclusively breast feeding Narrative: Baby has been sleepy and Desi is receiving assistance with Exam Physical Exam Vital signs: Temp Pulse Resp BP Pulse Ox 97.9 F 82 18 115/78 97 05/29/21 07:15 05/29/21 07:15 05/29/21 07:15 05/29/21 07:15 05/29/21 07:15 Vital Signs Reviewed: Yes Constitutional Constitutional: no acute distress Respiratory Exam Respiratory Exam: Normal Cardiovascular Exam Cardiovascular Exam: Normal Fundal Exam Fundus: Below Umbilicus and Firm Rectal Exam Rectal Exam: Normal Extremities Exam Extremity Exam: Normal Skin Exam Skin Exam: Normal Psychiatric Exam Psychiatric Exam: Normal Results Hemoglobin/Hematocrit: Hgb 11.3 g/dL (11.2-15.7) 05/29/21 07:42 Hct 34.1 % (36.0-46.0) L 05/29/21 07:42 Abnormal Lab Findings: Abnormal Labs 05/27/21 05/29/21 17:38 07:42 WBC 12.98 H RBC 3.81 L Hct 35.4 L 34.1 L
--- NOTE | 2021-05-29 10:50 | W.ANESPOSTOP ---
Postoperative Evaluation Date, Time and Location Date Performed: 05/29/21 Time Performed: 10:50 Patient Location: Obstetrics Vital Signs Most Recent Imported Vital Signs: Most Recent Vital Signs Temp Pulse Resp BP Pulse Ox 36.6 C 82 18 115/78 97 05/29/21 07:15 05/29/21 07:15 05/29/21 07:15 05/29/21 07:15 05/29/21 07:15 Pain Score Most Recent Pain Score: Most Recent Pain Score Pain Level 2 05/29/21 10:43 Assessment Mental Status: Awake (Alert & Oriented to Patient Baseline) Airway and Respiratory Function: Patent airway with normal (patient baseline) respiratory exam Cardiovascular Function: Hemodynamically Stable Hydration Status: Adequately Hydrated Nausea & Vomiting: No Nausea or Vomiting Pain: Pain is tolerable per patient Peripheral Nerve Block: Patient did not receive a nerve block
[2021-05-29 19:35] VITALS: BP 108/68; PULSE 78; RESP 16; TEMP 36.7
[2021-05-30] MEDS: Acetaminophen 325 MG TAB 650 MG PO (05:30)
[2021-05-30 07:50] VITALS: BP 120/77; PULSE 78; RESP 14; TEMP 37.1
[2021-05-30] MEDS: Ibuprofen 600 MG TAB PO (08:09)
--- NOTE | 2021-05-30 10:54 | W.PM.OBDISCH ---
Date of service: 05/30/21 Time of Service: 10:55 DS: Diagnosis Discharge Diagnosis (1) Term of male : Status: Acute Asessment and Plan: Caring for baby independently. Pain is managed well with oral analgesics. Voiding without difficulty. with poor latch, baby is being supplemented with formula. He had a circumcision today and they request discharge. A - stable mother and baby , Post day 2, SGA baby, feeding issues P - Discharge to home today. Routine post instructions. [facility]. feeding plan for pumping and supplementing reviewed. Discharge Plan Discharge Details Reason For Visit: Induction Admit Date/Time: 05/27/21 17:00 Admit Provider: Jackie Mckeon Attending Provider: Jackie Mckeon Primary Care Provider: Marely Fernandez Home Meds and New Rx's Prescriptions: Continued nicotine (polacrilex) [Nicorette] 2 mg gum 2 mg buccal Q2H Qty: 40 RF: 3 magnesium oxide 500 mg tablet 500 mg PO DAILY Qty: 90 RF: 0 ferrous sulfate 324 mg (65 mg iron) tablet,delayed release (DR/EC) 324 mg PO DAILY Qty: 90 RF: 2 omeprazole magnesium [Prilosec OTC] 20 mg tablet,delayed release (DR/EC) 20 mg PO DAILY Qty: 60 RF: 4 diphenhydramine-acetaminophen [Tylenol PM Extra Strength] 25-500 mg Tablet 1 tab PO HS RF: 0 PNV cmb#95-ferrous fumarate-FA [ Multivitamins] 28 mg iron- 800 mcg Tablet 1 tab PO DAILY RF: 0 No Action (DME) FreeStyle Lite Strips Strip See Rx Instructions .ROUTE .MEDSUPPLY Qty: 100 RF: 3 (DME) blood-glucose meter [FreeStyle Lite Meter] Kit See Rx Instructions .ROUTE .MEDSUPPLY Qty: 1 RF: 0 (DME) lancets [FreeStyle Lancets] 28 gauge misc See Rx Instructions .ROUTE .MEDSUPPLY Qty: 100 RF: 3 Discharge Instructions Stand Alone Forms: BC Instructions, BC Post Vaginal Deliver Referrals: Jackie Mckeon CNM [[facility] NURSE TELETYPE OPERATOR] - Activity:: Activity as Tolerated Activity:: Activity as Tolerated Equipment/Supplies:: No Equipment Needed Diet:: As Tolerated OB:DS Summary Summary Vaginal Delivery Method: Spontaneaous Episiotomy Description: None Laceration Description: Perineal Laceration Extension: First Degree (repaired with one interrupted suture) complications OB DS: none Contraception Discussed Contraception Discussed: Yes Contraceptive Plan: Control Pill/Patch (POP), Gender-Baby A: Male weight: 5 lb 13.829 oz Disposition of Baby A: Home Infant Gender-Baby B: Male Status at Discharge Functional status at discharge: independent ambulation Overall status at discharge: patient is back to baseline Mental Status: mental status grossly normal Speech and Movement: speech and movement normal Mood: congruent mood Affect: normal affect Exam Physical Exam Vital signs: Temp Pulse Resp BP Pulse Ox 98.8 F 78 14 120/77 97 05/30/21 07:50 05/30/21 07:50 05/30/21 07:50 05/30/21 07:50 05/29/21 07:15 [facility] Medical History (Updated 05/29/21 @ 08:15 by Jackie Mckeon CNM) 5,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 Depressive disorder Family history of diabetes mellitus (DM) Jane type 2a hyperlipoproteinemia Hypercholesterolemia Myoclonus Obesity Seizure Tobacco dependence Social History Smoking/Tobacco Use Status: Current every day Smoking risk assessment performed?: Yes Alcohol Intake: never Drug use: Never Substance use type: does not use Do you feel safe at home: Yes Do you feel safe in your relationship?: Yes History History 1 Para 0 Hx # Term Pregnancies 0 Multiple births 0 Hx # Pregnancies 0 Ectopic pregnancies 0 AB induced 0 Hx Number of Living Children 0 AB spontaneous 0 DS: Data Vitals/I&O Vitals and I&O: Vital Signs Temperature 98.8 F 05/30/21 07:50 Pulse 78 05/30/21 07:50 Pulse Rhythm Regular 05/30/21 07:50 Respiratory Rate 14 05/30/21 07:50 Blood Pressure 120/77 05/30/21 07:50 Blood Pressure Mean 91 05/30/21 07:50 Pulse Oximetry 97 05/29/21 07:15 Oxygen Delivery Method Room Air 05/27/21 17:11 Oxygen Flow Rate 0 05/27/21 17:11 Pain Level 5 05/30/21 08:09 Comment 05/27/21 17:30
== END 2021-05-30 13:55 | disposition home or self-care (01) | DRG 806 ==
LOC: OBS 05-30 11:20
PROVIDERS: Admitting Provider Advanced Practice Midwife; PCP Nurse Practitioner Family; Visit Provider Advanced Practice Midwife
DX: O14.94 Unspecified pre-eclampsia, complicating childbirth (principal); O99.354 Diseases of the nervous system complicating childbirth; Z37.0 Single live birth; G40.802 Other epilepsy, not intractable, without status epilepticus; E72.12 Methylenetetrahydrofolate reductase deficiency; O24.410 Gestational diabetes mellitus in pregnancy, diet controlled; Z3A.39 39 weeks gestation of pregnancy; O99.344 Other mental disorders complicating childbirth; F41.0 Panic disorder [episodic paroxysmal anxiety]; O99.334 Smoking (tobacco) complicating childbirth; F17.210 Nicotine dependence, cigarettes, uncomplicated; O70.0 First degree perineal laceration during delivery; F32.A Depression, unspecified; G43.909 Migraine, unspecified, not intractable, without status migrainosus; M54.31 Sciatica, right side; Z20.822 Contact with and (suspected) exposure to COVID-19; E78.00 Pure hypercholesterolemia, unspecified; O99.284 Endocrine, nutritional and metabolic diseases complicating childbirth
CPT/HCPCS: 36415; 85027; 86850; 86900; 86901; 87635; J3490

== ENCOUNTER 2021-07-28 03:31 | Outpatient (CLI) | payer MEDICAID, SELFPAY ==
[2021-07-28 11:10] LABS: GTT Comment See Comments
== END 2021-07-28 03:32 | disposition home or self-care (01) ==
PROVIDERS: PCP Nurse Practitioner Family; Visit Provider Advanced Practice Midwife
DX: Z86.32 Personal history of gestational diabetes (principal)
CPT/HCPCS: 36415; 82951

== ENCOUNTER 2022-01-10 15:02 | Emergency (ER) | payer MEDICAID, SELFPAY ==
[2022-01-10 15:05] VITALS: BP 127/82; PULSE 86; RESP 14; TEMP 37.1; O2SAT 100
--- NOTE | 2022-01-10 15:30 | DI.US_ITS ---
Exam(s) US ABDOMEN LIMITED EXAM: US ABDOMEN LIMITED CLINICAL HISTORY: R/O Cholecystitis, RUQ abd Pain TECHNIQUE: Ultrasound abdomen performed using standard protocol. COMPARISON: No exams were available for comparison FINDINGS: LIVER: Normal size and echogenicity. No focal liver lesions are seen.. GALLBLADDER: Limited evaluation due to contracted state of gallbladder. Patient ate 4-5 hours prior to the exam. No definite cholelithiasis. No evidence of wall thickening. No pericholecystic fluid i dentified. DUMONT'S SIGN: Negative. BILIARY SYSTEM: No intrahepatic or extrahepatic biliary ductal dilation. RIGHT KIDNEY: Normal size. No evidence of renal calculi. No evidence of hydronephrosis. No suspicious renal mass. No cyst identified. PANCREAS: Normal where visualized. ABDOMINAL AORTA AND IVC: Visualized portions normal caliber. ASCITES: None seen. IMPRESSION: Contracted gallbladder. No evidence of acute cholecystitis. No biliary dilatation. DATA REPOSITORY:
--- NOTE | 2022-01-10 15:37 | ED.GENADUL_ITS ---
Discharge Plan Disposition Patient Disposition: HOME Condition: Improving Discharge Details Clinical Impression: Acute cholangitis Primary Care Provider: Marely Fernandez ED Provider: Jaspreet Harley Home Meds and New Rx's Prescriptions: New promethazine 25 mg tablet 25 mg PO TID PRN (Reason: nausea and vomiting) Qty: 10 0RF Continued fluoxetine 20 mg capsule 20 mg PO DAILY Qty: 30 12RF norethindrone ac-eth estradiol [Loestrin 1.5/30 (21)] 1.5-30 mg-mcg tablet 1 tab PO DAILY Qty: 21 8RF norethindrone (contraceptive) [Manjula] 0.35 mg tablet 0.35 mg PO DAILY Qty: 28 12RF ondansetron HCl 4 mg tablet 4 tab PO Q8H Label Comments: TAKE ONE TABLET BY MOUTH EVERY 8 HOURS NEEDED FOR NAUSEA Discharge Instructions Instructions: Biliary Colic (ED) Additional Instructions: During today's visit labs and ultrasound imaging were reassuring showing no need for emergent removal of your gallbladder but I suspect that your pain and discomfort is potentially related to that. As discussed you should continue follow-up with your primary care provider for further imaging that they are already arranging. If you develop fever, persistent vomiting, or significant ch jam in your pain feel free to return to the emergency department for reevaluation. You may take 600 mg of ibuprofen every 6 hours as needed for discomfort and he is not use your meds as needed. Referrals: Marely Fernandez [Primary Care Provider] - 01/16/22 Discharge Data Discharge Date/Time-TO BE ENTERED AT DEPARTURE: 01/10/22 18:07 Medical Decision Making 26-year-old female who is 7 months presents to the ER with chief complaint of right upper quadrant abdominal pain which radiates into her back and of her right shoulder. She was seen at [facility] a week ago had a CT and lab which were all within normal limits according to patient report. She reports that over the last 24 hours pain and nausea has worsened. She is not breast-feeding. She denies any other associated symptoms. CBC, CMP, urinalysis, lipase, urine test ordered initially. 1554: 20-gauge INT to the right AC started blood drawn and sent to lab. Patient was tempted IV by staff development nurse left upper extremity to the AC of the left wrist was unsuccessful. Abdominal ultrasound limited to rule out Sol cystitis ordered. Urinalysis has resulted which shows trace blood no leukocytes no nitrite. Differential diagnosis includes but not limited to cholelithiasis, gallbladder sludge, UTI, pyelonephritis Care is to be handed off to oncoming provider Tony Harley pending labs and abdominal ultrasound. HPI General Mode of arrival: ambulatory . Date/Time Provider Initiated Documentation: 01/10/22 15:04 . Limitations to Documentation: no limitations . Information obtained by: patient, RN notes reviewed and old records reviewed . HPI Narrative: 26-year-old female who is 7 months presents to the ER with chief complaint of right upper quadrant abdominal pain which radiates into her back and of her right shoulder. She was seen at [facility] a week ago had a CT and lab which were all within normal limits according to patient report. She reports that over the last 24 hours pain and nausea has worsened. She is not breast-feeding. She also reports some vaginal itching and thick white discharge that she has been taking [id number] Monistat for she is on day 2 of this treatment. She denies any other associated symptoms. Past medical history includes seizure, preeclampsia, gestational diabetes, Jane type IIa hyperlipoproteinemia, anemia Patient had been prescribed Zofran at her previous visit which she did take which has done little to no help. Related Data Home Medications Medication Instructions Recorded Confirmed norethindrone (contraceptive) 0.35 0.35 mg PO DAILY #28 tabs 06/13/21 01/10/22 mg tablet (Manjula) fluoxetine 20 mg capsule 20 mg PO DAILY #30 caps 07/15/21 01/10/22 norethindrone acetate 1.5 1 tab PO DAILY #21 tabs 07/15/21 01/10/22 mg-ethinyl estradiol 30 mcg tablet (Loestrin) ondansetron HCl 4 mg tablet 4 tab PO Q8H 01/10/22 01/10/22 promethazine 25 mg tablet 25 mg PO TID PRN nausea and 01/10/22 vomiting #10 tabs Previous Rx's Medication Instructions Recorded norethindrone (contraceptive) 0.35 0.35 mg PO DAILY #28 tabs 06/13/21 mg tablet (Manjula) fluoxetine 20 mg capsule 20 mg PO DAILY #30 caps 07/15/21 norethindrone acetate 1.5 1 tab PO DAILY #21 tabs 07/15/21 mg-ethinyl estradiol 30 mcg tablet (Loestrin) promethazine 25 mg tablet 25 mg PO TID PRN nausea and 01/10/22 vomiting #10 tabs Allergies Allergy/AdvReac Type Severity Reaction Status Date / Time erythromycin base Allergy Mild Verified 01/10/22 15:11 oxybutynin [From Ditropan] Allergy Mild Verified 01/10/22 15:11 sulfamethoxazole Allergy Mild Verified 01/10/22 15:11 [From Bactrim] trimethoprim [From Bactrim] Allergy Mild Verified 01/10/22 15:11 penicillin V [From Pen-Vee K] Allergy hives Verified 01/10/22 15:11 Penicillins Allergy Verified 01/10/22 15:11 General Stated Complaint: Abd Prob LIDIA: 3 Review of Systems All systems reviewed & are unremarkable except as noted in HPI and below Gastrointestinal Gastrointestinal: Reports as per HPI, Reports abdominal pain, Denies diarrhea, Reports nausea, Denies vomiting and Denies hematemesis Musculoskeletal Musculoskeletal: Reports as per HPI and Reports back pain PFSH All Active Problems (Updated 01/10/22 @ 18:05 by Jaspreet Harley NP) Acute cholangitis (Acute) Smoking (Acute) 6 weeks follow-up (Acute) Anxiety (Chronic) fluoxetine in the past Encounter for routine follow-up (Acute) Erythromycin allergy (Acute) Allergy to penicillin (Acute) Migraine NEC/not intrcbl (Acute) Medical History (Updated 01/10/22 @ 18:05 by Jaspreet Harley NP) 5,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 Acute left flank pain Anemia Arm pain Depressive disorder Elective induction of labor planned Elevated glucose Family history of diabetes mellitus (DM) Jane type 2a hyperlipoproteinemia Gestational diabetes Heterozygous for MTHFR gene mutation History of gestational diabetes History of seizure Hypercholesterolemia Myoclonus Obesity headache Preeclampsia Sciatica of right side Seizure Term of male Tobacco dependence Vaginal discharge Family History (Updated 07/15/21 @ 13:26 by Jackie Mckeon CNM) Mother Pulmonary embolism cardiac blood clot Seizure disorder DVT (deep venous thrombosis) Father Diabetes Maternal Grandfather Stroke Maternal Grandmother Substance use disorder alcoholism Social History Smoking/Tobacco Use Status: Former Tobacco Use Smoking risk assessment performed?: Yes Alcohol Intake: never Drug use: Never Substance use type: does not use Do you feel safe at home: Yes Do you feel safe in your relationship?: Yes History History 1 Para 1 Hx # Term Pregnancies 1 Multiple births 0 Hx # Pregnancies 0 Ectopic pregnancies 0 AB induced 0 Hx Number of Living Children 1 AB spontaneous 0 Past Pregnancies Del. Date GA/Weeks # Outcome Route Wgt Sex Labor Lgth Anesthes ia Location Prov Complic 05/28/21 39 No Successful vaginal Male 3 hrs 11 min regional [facility] Delivery Date: 05/28/21 Last Updated by: Angélica Guardado LPN Diabetes Mellitus; Induced; Jason Ramirez Exam Narrative Exam Narrative: Constitutional: Alert and oriented x3. Appears stated age. Normal body habitus. Head: Normocephalic, no trauma. Eyes: Pupils PERRL, Red reflex noted, EOM's intact. Eyelids symmetrical without lesions, discharge, or swelling. Chest: RRR, Normal S1, S2, distal pulses intact. Resp: Lungs clear to auscultation bilaterally, no wheezes, rales, or rhonchi. Abdomen: Soft, non-distended, negative House sign, right CVA tenderness with palpation. Musculoskeletal: Normal gait, 5/5 strength to all four extremities. Skin: No suspicious rashes or lesions. Capillary refill less than 2 sec. Neurologic: Cranial nerves II-XII intact. Alert and oriented x 3. Motor: No deficits noted. Sensory: Intact bilaterally all 4 extremities. Hematologic/Lymphatic: No ecchymosis, no lymphadenopathy. Course Vital Signs Vital signs: Vital Signs Temperature 37.1 C 01/10/22 15:05 Pulse 86 01/10/22 15:05 Respiratory Rate 14 01/10/22 15:05 Blood Pressure 127/82 01/10/22 15:05 Pulse Oximetry 100 01/10/22 15:05 Temperature 37.1 C 01/10/22 15:05 Temperature Source Temporal Artery Scan 01/10/22 15:05 Pulse 86 01/10/22 15:05 Respiratory Rate 14 01/10/22 15:05 Respiratory Effort 01/10/22 15:10 Blood Pressure 127/82 01/10/22 15:05 Blood Pressure Position Sitting 01/10/22 15:05 Pulse Oximetry 100 01/10/22 15:05 Oxygen Delivery Method Room Air 01/10/22 15:05 Oxygen Flow Rate 0 01/10/22 15:05 Pain Level 4 01/10/22 15:05 Procedures EJ/Peripheral Line Arm R: Time Out Performed: No Skin Cleansed in Sterile Fashion: Yes Size (gauge): 20 IV Secured and Dressing Applied: Yes Patient Tolerated Procedure: well and no complications Phlebotomy Reason for Blood Draw by MD: RN/lab unable Obtained Bloods via: peripheral vein stick Estimated cc's Blood Obtained: 15 Sign Out Sign Out Data: Sign Out Comment: Right upper quadrant, right flank pain rating up into her right back x10 days. Seen at [facility] 7 days ago had a CT and lab. She was told she may need a HIDA scan. Here today for 24 hours worsening pain and nausea has been taking Zofran at home. 7 months is not breast-feeding. Currently undergoing treatment for possible yeast infection with [id number] Monistat. Last updated by Marlene Baugh at 01/10/22 16:06
[2022-01-10 15:43] LABS: Bilirubin Negative (Negative); Blood Trace-lysed (Negative); Clarity Clear (Clear); Glucose Negative (Negative); Ketones Negative (Negative); Leukocyte Esterase Negative (Negative); Nitrite Negative (Negative); Specific Gravity 1.025 (1.005-1.025); Urobilinogen 0.2 EU/dL (Up TO 0.2); pH 6.5 (5-8)
[2022-01-10 15:53] LABS: Bacteria Many HPF (Negative); C & S Indicated? Yes; Crystals Negative HPF (Negative); Epithelial Cells Moderate HPF (Negative); Mucus Negative (Negative); RBC 0-2 HPF (0-2); WBC 0-2 HPF (0-5)
[2022-01-10 16:07] LABS: Abs Immature Grans 0.02 10^3/uL (0.0-0.06); Absolute Basophil Count 0.05 10^3/uL (0.0-0.2); Absolute Eosinophil Count 0.23 10^3/uL (0.0-0.7); Absolute Lymphocyte Count 2.55 10^3/uL (1.2-3.4); Absolute Monocyte Count 0.78 10^3/uL (0.1-0.8); Absolute Neutrophil Count 3.68 10^3/uL (1.2-6.7); Basophils % 0.7; Eosinophils % 3.1; Immature Grans % 0.3; Lymphocytes % 34.9; MCH 28.8 pg (27.0-33.0); MCHC 32.5 % (32.0-36.0); MCV 89 fL (80-95); Monocytes % 10.7; Neutrophils % 50.3; Platelet Count 375 10^3/uL (130-400); RBC 4.51 10^6/uL (3.93-5.22); RDW-SD 42.5 fL; WBC 7.31 10^3/uL (4.4-10.8)
[2022-01-10 16:28] LABS: ALT 20 U/L (14-59); AST 30 U/L (15-37); Alkaline Phosphatase 75 U/L (46-116); Anion Gap 8.2 mmol/L (3-11); BUN 12 mg/dL (7-18); Bilirubin, Total 0.4 mg/dL (0.2-1.0); CO2 25.8 mmol/L (21.0-32.0); CREATININE 0.9 mg/dL (0.55-1.02); Calcium 8.9 mg/dL (8.5-10.1); Chloride 104 mmol/L (98-107); Glucose 88 mg/dL (74-106); Lipase 68 U/L (73-393); Potassium 4.9 mmol/L (3.5-5.1); Sodium 138 mmol/L (136-145); Total Protein 7.5 g/dL (6.4-8.2)
--- NOTE | 2022-01-10 17:06 | ED.PROG_ITS ---
Date of service: 01/10/22 Time of Service: 16:00 Medical Decision Making Patient signed out to me by Marlene Baugh pending review of labs and ultrasound imaging results. Patient coming in for right upper quadrant pain with radiation to shoulder and back. Reviewed labs and CBC is unremarkable, CMP is also unremarkable, patient has normal lipase, UA shows trace lysed blood but otherwise is negative. Microscopic results for urine does show bacteria but is negative for leukocyte Estrace and nitrates reflexive culture was ordered by lab. Ultrasound imaging shows contracted gallbladder but no evidence of acute cholecystitis or biliary dilatation. Full report also noted that no obvious renal calculi or hydronephrosis was noted in the right kidney. Given unremarkable emergency work-up did discuss with patient continuing with initial plan by [facility] of HIDA scan. Also discussed with p atient clear liquid and slowly advancing diet as tolerated. Patient is agreeable to this plan of care and will follow up with primary care provider. Did discuss findings that would necessitate a return to the emergency department. After discussion of diagnosis and plan of care patient has no further needs, questions, or concerns and states clear understanding to return to the emergency department for any worsening symptoms. This documentation was generated using [employer] dictation system, please disregard any oddities of phrase or misspellings. Medical Records Medical records reviewed: Yes I reviewed the patient's medical records. Imaging Data Radiologic Study: Imaging: Ultrasound Radiologist's impression: IMPRESSION: Contracted gallbladder. No evidence of acute cholecystitis. No biliary dilatation. Lab Data Lab results reviewed: Yes I reviewed the patient's lab results. Sign Out Sign Out Data: Sign Out Comment: Right upper quadrant, right flank pain rating up into her right back x10 days. Seen at [facility] 7 days ago had a CT and lab. She was told she may need a HIDA scan. Here today for 24 hours worsening pain and nausea has been taking Zofran at home. 7 months is not breast-feeding. Currently undergoing treatment for possible yeast infection with [id number] Monistat. Last updated by Marlene Baugh at 01/10/22 16:06 Discharge Plan Disposition Patient Disposition: HOME Condition: Improving Discharge Details Clinical Impression: Acute cholangitis Primary Care Provider: Marely Fernandez ED Provider: Jaspreet Harley Home Meds and New Rx's Prescriptions: New promethazine 25 mg tablet 25 mg PO TID PRN (Reason: nausea and vomiting) Qty: 10 0RF Continued fluoxetine 20 mg capsule 20 mg PO DAILY Qty: 30 12RF norethindrone ac-eth estradiol [Loestrin 1.5 (21)] 1.5-30 mg-mcg tablet 1 tab PO DAILY Qty: 21 8RF norethindrone (contraceptive) [Manjula] 0.35 mg tablet 0.35 mg PO DAILY Qty: 28 12RF ondansetron HCl 4 mg tablet 4 tab PO Q8H Label Comments: TAKE ONE TABLET BY MOUTH EVERY 8 HOURS NEEDED FOR NAUSEA Discharge Instructions Instructions: Biliary Colic (ED) Additional Instructions: During today's visit labs and ultrasound imaging were reassuring showing no need for emergent removal of your gallbladder but I suspect that your pain and discomfort is potentially related to that. As discussed you should continue follow-up with your primary care provider for further imaging that they are already arranging. If you develop fever, persistent vomiting, or significant change in your pain feel free to return to the emergency department for ree valuation. You may take 600 mg of ibuprofen every 6 hours as needed for discomfort and he is not use your meds as needed. Referrals: Marely Fernandez [Primary Care Provider] - 01/16/22 Discharge Data Discharge Date/Time-TO BE ENTERED AT DEPARTURE: 01/10/22 18:07
[2022-01-10 17:30] VITALS: BP 123/70; PULSE 63; RESP 18; O2SAT 99
[2022-01-10] MEDS: Promethazine 25 MG TAB PO (17:30)
[2022-01-10] MEDS: Ketorolac 30 MG/ML VIAL IVP (17:30)
== END 2022-01-10 18:07 | disposition home or self-care (01) ==
PROVIDERS: Registered Nurse Emergency; Emergency Provider Nurse Practitioner Family; PCP Nurse Practitioner Family
DX: K83.09 Other cholangitis (principal); R10.11 Right upper quadrant pain; M54.9 Dorsalgia, unspecified
CPT/HCPCS: 80053; 81025; 83690; 96374; 99284; 76705; 81003; 81015; 83735; 85025; 87086; 99283; J1885

== ENCOUNTER 2022-06-12 09:11 | Observation (INO) | payer MEDICAID, SELFPAY ==
[2022-06-12 09:23] VITALS: BP 133/94; PULSE 98; RESP 18; TEMP 36.8; O2SAT 95
--- NOTE | 2022-06-12 12:00 | RT.EKG_ITS ---
APPROVED REPORT Exam: Resting ECG Reason for Exam: chest pain Patient Location: E HR:77 bpm ECG Measurements Heart Rate 77 AXIS NV 139 P 35 QRSd 87 QRS 44 QT 384 T 23 QTc 435 Conclusion Sinus rhythm...normal P axis, V-rate 60- 99 Probable left atrial enlargement...P >50mS, <-0.10mV V1 no STEMI, non-diagnostic EKG
--- NOTE | 2022-06-12 12:18 | ED.GENADUL_ITS ---
Discharge Plan Disposition Patient Disposition: [facility] INPATIENT Condition: Stable Discharge Details Clinical Impression: Pulmonary embolism, Oral contraceptive intolerance Admit Date/Time: 06/12/22 17:10 Admit Provider: Roel Chacon Attending Provider: Roel Chacon Primary Care Provider: Marely Fernandez ED Provider: Mera Fournier Discharge Data Discharge Date/Time-TO BE ENTERED AT DEPARTURE: 06/12/22 17:49 Medical Decision Making Case discussed with the hospitalist, Dr. Chacon who reviewed films with Dr. Rausch, software release manager and recommends bedside ultrasound to further evaluate safety for discharge home potentially CT findings discussed with radiologist with acute bilateral pulmonary emboli without saddle embolism or evidence of obvious right heart strain Her vitals have been stable throughout this encounter, she is mildly dyspneic on exertion but exhibits no other significant signs or symptoms at this time Her troponin is negative which is reassuring POCUS cardiac ultrasound performed by Dr. Kit Goodman ultrasound, films reviewed with Dr. Rausch pulmonology and after reviewing CTs she feels the patient would benefit from admission and Lovenox initiation at this time after confirming safety Case discussed with Dr. Rausch, recommendation for admission Remains stable throughout this encounter Agreeable to admission at this time Medical Records Medical records reviewed: Yes I reviewed the patient's medical records. Lab Data Lab results reviewed: Yes I reviewed the patient's lab results. HPI General Date/Time Provider Initiated Documentation: 06/12/22 11:36 . HPI Narrative: This 27-year-old female presents with report of headache, chest pain, shortness of breath, pleuritic pain in her chest. Denies any calf pain or swelling. Smoking 6 months ago but does not take any exogenous estrogen oral contraceptive. History of coagulopathy, mother has numerous blood clots in the past. Denies known genetic component. Has had several negative COVID test at home. Denies any recent flights, surgeries, long drives. Denies personal history of blood clots. Denies history of hypertension or hyperlipidemia. Denies current chance of . Related Data Home Medications Medication Instructions Recorded Confirmed norethindrone (contraceptive) 0.35 0.35 mg PO DAILY #28 tabs 06/13/21 06/12/22 mg tablet (Manjula) norethindrone acetate 1.5 1 tab PO DAILY #21 tabs 05/29/22 06/12/22 mg-ethinyl estradiol 30 mcg tablet (Loestrin) apixaban 5 mg (74 tabs) tablets in See Rx Instructions PO .COMPLEX 06/12/22 a dose pack (Eliquis DVT-PE Treat #74 dose pk 30D Start) fluoxetine 20 mg capsule 40 mg PO DAILY 06/12/22 06/12/22 Previous Rx's Medication Instructions Recorded norethindrone (contraceptive) 0.35 0.35 mg PO DAILY #28 tabs 06/13/21 mg tablet (Manjula) norethindrone acetate 1.5 1 tab PO DAILY #21 tabs 05/29/22 mg-ethinyl estradiol 30 mcg tablet (Loestrin) apixaban 5 mg (74 tabs) tablets in See Rx Instructions PO .COMPLEX 06/12/22 a dose pack (Eliquis DVT-PE Treat #74 dose pk 30D Start) Allergies Allergy/AdvReac Type Severity Reaction Status Date / Time erythromycin base Allergy Mild Verified 06/12/22 09:27 oxybutynin [From Ditropan] Allergy Mild Verified 06/12/22 09:27 sulfamethoxazole Allergy Mild Verified 06/12/22 09:27 [From Bactrim] trimethoprim [From Bactrim] Allergy Mild Verified 06/12/22 09:27 penicillin V [From Pen-Vee K] Allergy hives Verified 06/12/22 09:27 Penicillins Allergy Verified 06/12/22 09:27 lactose AdvReac Unverified 06/12/22 18:22 General Stated Complaint: RespSymp LIDIA: 3 Review of Systems All systems reviewed & are unremarkable except as noted in HPI and below PFSH All Active Problems (Updated 06/13/22 @ 09:36 by JASMINE Barrios) Oral contraceptive intolerance (Acute) DVT prophylaxis (Acute) Pulmonary embolism (Acute) Smoking (Acute) 6 weeks follow-up (Acute) Anxiety (Chronic) fluoxetine in the past Encounter for routine follow-up (Acute) Erythromycin allergy (Acute) Allergy to penicillin (Acute) Migraine NEC/not intrcbl (Acute) Medical History (Updated 06/13/22 @ 09:36 by JASMINE Barrios) 5,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 Acute left flank pain Anemia Arm pain Depressive disorder Elective induction of labor planned Elevated glucose Family history of diabetes mellitus (DM) Jane type 2a hyperlipoproteinemia Gestational diabetes Heterozygous for MTHFR gene mutation History of gestational diabetes History of seizure Hypercholesterolemia Myoclonus Obesity headache Preeclampsia Sciatica of right side Seizure Term of male Tobacco dependence Vaginal discharge Family History (Updated 07/15/21 @ 13:26 by Jackie Mckeon CNM) Mother Pulmonary embolism cardiac blood clot Seizure disorder DVT (deep venous thrombosis) Father Diabetes Maternal Grandfather Stroke Maternal Grandmother Substance use disorder alcoholism Social History Smoking/Tobacco Use Status: Former Tobacco Use Smoking risk assessment performed?: Yes Alcohol Intake: never Drug use: Never Substance use type: does not use Do you feel safe at home: Yes Do you feel safe in your relationship?: Yes History History 1 Para 1 Hx # Term Pregnancies 1 Multiple births 0 Hx # Pregnancies 0 Ectopic pregnancies 0 AB induced 0 Hx Number of Living Children 1 AB spontaneous 0 Past Pregnancies Del. Date GA/Weeks # Preg Succ Route Wgt Sex Labor Lgth Anesth esia Location Prov Complic 05/28/21 39 No vaginal Male 3 hrs 11 min regional [facility] Delivery Date: 05/28/21 Last Updated by: Angélica Guardado LPN Diabetes Mellitus; Induced; Jason Ramirez Exam Const General: cooperative, comfortable and no acute distress Eyes Sclera: sclerae normal Resp Effort & Inspection: normal respiratory effort Auscultation: clear to auscultation bilaterally Cardio Rate: regular rate Rhythm: regular rhythm Heart Sounds: no murmurs Skin General skin exam: no rashes or lesions noted Neuro General: patient alert and patient oriented x3 Extrem Other: No calf swelling or tenderness appreciated Course Vital Signs Vital signs: Vital Signs Temperature 36.8 C 06/12/22 09:23 Pulse 98 H 06/12/22 09:23 Respiratory Rate 18 06/12/22 09:23 Blood Pressure 133/94 H 06/12/22 09:23 Pulse Oximetry 95 06/12/22 09:23 Temperature 36.8 C 06/12/22 09:23 Temperature Source Tympanic 06/12/22 09:23 Pulse 98 H 06/12/22 09:23 Respiratory Rate 18 06/12/22 09:23 Respiratory Effort Short of Breath 06/12/22 09:29 Respiratory Depth Normal 06/12/22 09:29 Blood Pressure 133/94 H 06/12/22 09:23 Blood Pressure Position Sitting 06/12/22 09:23 Pulse Oximetry 95 06/12/22 09:23 Oxygen Delivery Method Room Air 06/12/22 09:23 Oxygen Flow Rate 0 06/12/22 09:23 Pain Level 2 06/12/22 09:23
[2022-06-12] MEDS: Albuterol HFA 8 GM 60 PUFF INH IH (12:40)
[2022-06-12] MEDS: Inhaler, Assist Device 1 EACH MC (12:40)
[2022-06-12 13:01] LABS: ALT 18 U/L (14-59); AST 22 U/L (15-37); Albumin 3.4 g/dL (3.4-5.0); Alkaline Phosphatase 106 U/L (46-116); Anion Gap 10.7 mmol/L (3-11); BUN 9 mg/dL (7-18); Bilirubin, Total 0.4 mg/dL (0.2-1.0); CO2 24.3 mmol/L (21.0-32.0); Calcium 8.8 mg/dL (8.5-10.1); Chloride 104 mmol/L (98-107); Estimated GFR 79.68 (mL/min/1.73m2); Glucose 80 mg/dL (74-106); Lipase 44 U/L (73-393); Potassium 3.8 mmol/L (3.5-5.1); Sodium 139 mmol/L (136-145); Total Protein 8.3 g/dL (6.4-8.2); Troponin I < 50 ng/L (<or=60)
[2022-06-12 13:02] LABS: Abs Immature Grans 0.02 10^3/uL (0.0-0.06); Absolute Basophil Count 0.03 10^3/uL (0.0-0.2); Absolute Eosinophil Count 0.12 10^3/uL (0.0-0.7); Absolute Lymphocyte Count 2.92 10^3/uL (1.2-3.4); Absolute Monocyte Count 0.75 10^3/uL (0.1-0.8); Absolute Neutrophil Count 6.14 10^3/uL (1.2-6.7); Basophils % 0.3; Eosinophils % 1.2; HCT 42.3 % (36.0-46.0); HGB 13.5 g/dL (11.2-15.7); Immature Grans % 0.2; Lymphocytes % 29.3; MCH 26.9 pg (27.0-33.0); MCHC 31.9 % (32.0-36.0); MCV 84 fL (80-95); Monocytes % 7.5; Neutrophils % 61.5; Platelet Count 371 10^3/uL (130-400); RBC 5.02 10^6/uL (3.93-5.22); RDW 13.8 % (11.7-14.6); RDW-SD 42.2 fL; WBC 9.98 10^3/uL (4.4-10.8)
[2022-06-12 13:31] LABS: D-Dimer 2169 ng/mlFEU (<500)
--- NOTE | 2022-06-12 13:58 | DI.CT_ITS ---
Exam(s) CT CHEST PE CTA EXAM: CT CHEST PE CTA CLINICAL HISTORY: chest pain ocps. TECHNIQUE: Imaging Protocol: CT angiography of the chest was performed using pulmonary embolus nathaly col. Multi planar reconstructions were performed. CONTRAST MATERIAL: Intravenous: Omnipaque 350 Contrast volume: 100 cc COMPARISON: No exams were available for comparison FINDINGS: CHEST: THIS IS A POSITIVE STUDY. PULMONARY ARTERIES: There are bilateral intraluminal filling defects consistent with acute pulmonary emboli in 2nd and 3rd order lower lobe vessels bilaterally. LUNGS: There are no infiltrates nor evidence of pulmonary infarction.. There are no pleural effusions . MEDIASTINUM: There is no hilar nor mediastinal adenopathy. Visualized thyroid unremarkable. CARDIAC: Heart size is normal. There is no pericardial effusion.Caliber of the thoracic aorta is wit hin normal limits. No evidence of aortic dissection. There is no significant shift of the interventr icular septum. No contrast reflux into the intrahepatic IVC. PARTIALLY VISUALIZED UPPERMOST ABDOMEN: Gallbladder surgically absent. OSSEOUS: No significant osseous lesions.. IMPRESSION: 1. This study is positive for the presence of bilateral pulmonary emboli, predominantly in both lower lobes..There is no evidence of pulmonary infarction. 2. No infiltrates nor pleural effusions nor intrathoracic adenopathy Called by myself to ER physician. RADIATION DOSE DELIVERED: 539.19mGy.cm Total DLP DATA REPOSITORY: All CT scans at this facility are submitted to the National Radiology Data Registry (NRDR) Dose Index Registry (DIR) with the [employer] ([employer]). RADIATION OPTIMIZATION: All CT scans at this facility use at least one of these dose optimization te chniques: automated exposure control; mA and/or kV adjustment per patient size (includes targeted exa ms where dose is matched to clinical indication); or iterative reconstruction.
[2022-06-12] MEDS: Normal Saline Flush 10 ML SYR IVP (14:32)
[2022-06-12] MEDS: Omnipaque 350 MG/ML 500 ML BTL-Imaging package IJ (14:33)
[2022-06-12 16:46] LABS: Lactate 0.9 mmol/L (0.6-1.4)
[2022-06-12] MEDS: Enoxaparin 100 MG/ML SYR SC (16:46)
[2022-06-12 17:10] LABS: Source Nasal/Nares
--- NOTE | 2022-06-12 17:35 | W.PM.HP.N ---
Date of service: 06/12/22 Time of Service: 17:35 Assessment and Plan Assessment and plan (1) Pulmonary embolism: Status: Acute Assessment and plan: CT PE positive; pocus suggests right ventricular strain; admitted for apixaban, echo tomorrow and BLE US tomorrow. (2) Smoking: Status: Acute Assessment and plan: Offer NRT, VT quits information - discussed risk of OCP and smoking (3) Anxiety: Status: Chronic Assessment and plan: Stable, continue prozac History of Present Illness History of Present Illness Chief Complaint: Difficulty breathing Narrative: This 27-year-old female patient presents to the [facility] with report of headache, chest pain, shortness of breath, pleuritic pain in her chest. She denied any calf pain or swelling.? She reports quitting smoking 6 months ago; she takes oral contraceptives.? History of coagulopathy, mother has had numerous blood clots in the past.? Denies known genetic component.? Has had several negative COVID test at home.? Denied any recent flights, surgeries, long drives.? Denied personal history of blood clots.? Denied history of hypertension or hyperlipidemia.? Denied current . 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 Acute left flank pain Anemia Arm pain Depressive disorder Elective induction of labor planned Elevated glucose Family history of diabetes mellitus (DM) Jane type 2a hyperlipoproteinemia Gestational diabetes Heterozygous for MTHFR gene mutation History of gestational diabetes History of seizure Hypercholesterolemia Myoclonus Obesity Oral contraceptive intolerance headache Preeclampsia Sciatica of right side Seizure Term of male Tobacco dependence Vaginal discharge Family History (Updated 07/15/21 @ 13:26 by Jackie Mckeon CNM) Mother Pulmonary embolism cardiac blood clot Seizure disorder DVT (deep venous thrombosis) Father Diabetes Maternal Grandfather Stroke Maternal Grandmother Substance use disorder alcoholism Social History Smoking/Tobacco Use Status: Former Tobacco Use Smoking risk assessment performed?: Yes Alcohol Intake: never Drug use: Never Substance use type: does not use Do you feel safe at home: Yes Do you feel safe in your relationship?: Yes History History 1 Para 1 Hx # Term Pregnancies 1 Multiple births 0 Hx # Pregnancies 0 Ectopic pregnancies 0 AB induced 0 Hx Number of Living Children 1 AB spontaneous 0 Past Pregnancies Del. Date GA/Weeks # Preg Succ Route Wgt Sex Labor Lgth Anesthesia Location Prov Complic 05/28/21 39 No vaginal Male 3 hrs 11 min regional [facility] Delivery Date: 05/28/21 Last Updated by: Angélica Guardado LPN Diabetes Mellitus; Induced; Jason Ramirez [place] Allergies and Home Medications Allergies Allergy/AdvReac Type Severity Reaction Status Date / Time erythromycin base Allergy Mild Verified 06/12/22 09:27 oxybutynin [From Ditropan] Allergy Mild Verified 06/12/22 09:27 sulfamethoxazole Allergy Mild Verified 06/12/22 09:27 [From Bactrim] trimethoprim [From Bactrim] Allergy Mild Verified 06/12/22 09:27 penicillin V [From Pen-Vee K] Allergy hives Verified 06/12/22 09:27 Penicillins Allergy Verified 06/12/22 09:27 lactose AdvReac Unverified 06/12/22 18:22 Home Medications Medication Instructions Recorded Confirmed Type apixaban 5 mg (74 tabs) tablets in See Rx Instructions PO .COMPLEX 06/12/22 Rx a dose pack (Eliquis DVT-PE Treat #74 dose pk 30D Start) fluoxetine 20 mg capsule 40 mg PO DAILY 06/12/22 06/12/22 History apixaban 5 mg (74 tabs) tablets in See Rx Instructions PO .COMPLEX 06/13/22 Rx a dose pack (Eliquis DVT-PE Treat #74 dose pk 30D Start) Exam Narrative Exam Narrative: Constitutional: Alert and oriented x3. Appears stated age. Normal body habitus. Head: Normocephalic, no trauma. Eyes: Pupils PERRL, Red reflex noted, EOM's intact. Eyelids symmetrical without lesions, discharge, or swelling. Chest: RRR, Normal S1, S2, distal pulses intact. Resp: Lungs clear to auscultation bilaterally, no wheezes, rales, or rhonchi. Abdomen: Soft, non-distended, negative House sign, right CVA tenderness with palpation. Musculoskeletal: Normal gait, 5/5 strength to all four extremities. Skin: No suspicious rashes or lesions. Capillary refill less than 2 sec. Neurologic: Cranial nerves II-XII intact. Alert and oriented x 3. Motor: No deficits noted. Sensory: Intact bilaterally all 4 extremities. Hematologic/Lymphatic: No ecchymosis, no lymphadenopathy. Const General: cooperative, comfortable and no acute distress Eyes Sclera: sclerae normal Resp Effort & Inspection: normal respiratory effort Auscultation: clear to auscultation bilaterally Cardio Rate: regular rate Rhythm: regular rhythm Heart Sounds: no murmurs Skin General skin exam: no rashes or lesions noted Neuro General: patient alert and patient oriented x3 Extrem Other: No calf swelling or tenderness appreciated Results Labs Result diagrams: 06/13/22 05:15 06/13/22 05:25 Labs: Laboratory Results - last 24 hr 06/12/22 06/12/22 06/12/22 12:35 12:35 12:35 WBC Cancelled RBC Cancelled Hgb Cancelled Hct Cancelled MCV Cancelled MCH Cancelled MCHC Cancelled RDW Cancelled Plt Count Cancelled MPV Cancelled Immature Gran % Cancelled Neutrophils % Cancelled Band Neutrophils % Cancelled Lymphocytes % Cancelled Atypical Lymphs % Cancelled Monocytes % Cancelled Eosinophils % Cancelled Basophils % Cancelled Metamyelocytes % Cancelled Myelocytes % Cancelled Promyelocytes % Cancelled Other Cells % Cancelled Nucleated RBC % Cancelled Absolute Neutrophils Cancelled Absolute Lymphocytes Cancelled Absolute Monocytes Cancelled Absolute Eosinophils Cancelled Absolute Basophils Cancelled RBC Morphology Cancelled Polychromasia Cancelled Hypochromasia Cancelled Poikilocytosis Cancelled Basophilic Stippling Cancelled Anisocytosis Cancelled Microcytosis Cancelled Macrocytosis Cancelled Spherocytes Cancelled Tear Drop Cells Cancelled Ovalocytes Cancelled Stomatocytes Cancelled [employer] Bodies Cancelled [place] Cells/Echinocytes Cancelled Acanthocytes (Spur) Cancelled Schistocytes Cancelled D-Dimer Cancelled VBG Lactate Sodium 139 Potassium 3.8 Chloride 104 Carbon Dioxide 24.3 Anion Gap 10.7 BUN 9 Creatinine 1.0 Est GFR (CKD-EPI 2020) 79.68 Glucose 80 Calcium 8.8 Total Bilirubin 0.4 AST 22 ALT 18 Alkaline Phosphatase 106 Troponin I < 50 Total Protein 8.3 H Albumin 3.4 Lipase 44 COVID-19 Source 06/12/22 06/12/22 06/12/22 12:55 12:55 16:38 WBC 9.98 RBC 5.02 Hgb 13.5 Hct 42.3 MCV 84 MCH 26.9 L MCHC 31.9 L RDW 13.8 Plt Count 371 MPV 9.0 Immature Gran % 0.2 Neutrophils % 61.5 Band Neutrophils % Lymphocytes % 29.3 Atypical Lymphs % Monocytes % 7.5 Eosinophils % 1.2 Basophils % 0.3 Metamyelocytes % Myelocytes % Promyelocytes % Other Cells % Nucleated RBC % 0.0 Absolute Neutrophils 6.14 Absolute Lymphocytes 2.92 Absolute Monocytes 0.75 Absolute Eosinophils 0.12 Absolute Basophils 0.03 RBC Morphology Polychromasia Hypochromasia Poikilocytosis Basophilic Stippling Anisocytosis Microcytosis Macrocytosis Spherocytes Tear Drop Cells Ovalocytes Stomatocytes [employer] Bodies Daniel Cells/Echinocytes Acanthocytes (Spur) Schistocytes D-Dimer 2169 H VBG Lactate 0.9 Sodium Potassium Chloride Carbon Dioxide Anion Gap BUN Creatinine Est GFR (CKD-EPI 2020) Glucose Calcium Total Bilirubin AST ALT Alkaline Phosphatase Troponin I Total Protein Albumin Lipase COVID-19 Source 06/12/22 17:05 WBC RBC Hgb Hct MCV MCH MCHC RDW Plt Count MPV Immature Gran % Neutrophils % Band Neutrophils % Lymphocytes % Atypical Lymphs % Monocytes % Eosinophils % Basophils % Metamyelocytes % Myelocytes % Promyelocytes % Other Cells % Nucleated RBC % Absolute Neutrophils Absolute Lymphocytes Absolute Monocytes Absolute Eosinophils Absolute Basophils RBC Morphology Polychromasia Hypochromasia Poikilocytosis Basophilic Stippling Anisocytosis Microcytosis Macrocytosis Spherocytes Tear Drop Cells Ovalocytes Stomatocytes [employer] Bodies Daniel Cells/Echinocytes Acanthocytes (Spur) Schistocytes D-Dimer VBG Lactate Sodium Potassium Chloride Carbon Dioxide Anion Gap BUN Creatinine Est GFR (CKD-EPI 2020) Glucose Calcium Total Bilirubin AST ALT Alkaline Phosphatase Troponin I Total Protein Albumin Lipase COVID-19 Source Nasal/Nares Last Vital Signs Temp 36.8 C 06/12/22 09:23 Pulse 98 H 06/12/22 09:23 Resp 18 06/12/22 09:23 BP 133/94 H 06/12/22 09:23 Pulse Ox 95 06/12/22 09:23
[2022-06-12 17:44] LABS: COVID-19 PCR Negative (Negative)
[2022-06-12 17:56] VITALS: BP 126/85; PULSE 75; RESP 18; RESP 48; TEMP 36.8; O2SAT 96
[2022-06-12] MEDS: Acetaminophen 325 MG TAB PO (18:48)
[2022-06-12 20:00] VITALS: BP 121/80; PULSE 80; RESP 16; TEMP 37.3; O2SAT 96
[2022-06-12] MEDS: Nicotine 7 MG/24 HR PATCH TD (20:11)
[2022-06-12] MEDS: FLUoxetine 20 MG CAP 40 MG PO (21:56)
[2022-06-12] MEDS: Apixaban 5 MG TAB 10 MG PO (21:56)
[2022-06-12] MEDS: traZODone 100 MG TAB PO (21:57)
[2022-06-12 22:40] VITALS: BP 104/70; PULSE 70; RESP 16; TEMP 36.8; O2SAT 93
--- NOTE | 2022-06-13 | DI.US_ITS ---
APPROVED REPORT EXAM: Comprehensive 2D, Doppler, and color-flow Echocardiogram Patient Location: In-Patient Room/Bed: [address] Team Member: Kiara Giron RDCS (AE) Indications: Pulmonary embolism, Chest pain, SOB Other Information Study Quality: Fair. Technically limited study due to body habitus. Conclusion Normal left ventricular wall thickness and chamber size. Estimated ejection fraction is 55 to 60%. Wall motion is normal Normal right ventricular size and systolic function Both atria are normal in size There is no structural or hemodynamically significant valvular disease Estimated right ventricular systolic pressure is 30 mmHg Wall motion Left Ventricle The left ventricle is normal size. The left ventricular systolic function is normal. The left ventric ular ejection fraction is within the normal range. There is normal left ventricular wall thickness. T here is normal LV segmental wall motion. There is no ventricular septal defect visualized. LVEF is 58 %. Right Ventricle The right ventricle is normal size. The right ventricular systolic function is normal. The RVSP is 30 .3mmHg. Atria The left atrium size is normal. The right atrium size is normal. The interatrial septum is intact wit h no evidence for an atrial septal defect. Aortic Valve The aortic valve is normal in structure. There is no aortic valvular stenosis. No aortic regurgitatio n is present. Mitral Valve The mitral valve is normal in structure. No evidence of mitral valve stenosis. Trace mitral regurgita tion. Tricuspid Valve The tricuspid valve is normal in structure. There is no tricuspid valve stenosis. Trace tricuspid reg urgitation. Pulmonic Valve Pulmonic valve is not well visualized. There is no pulmonic valvular stenosis. There is no pulmonic v alvular regurgitation. Great Vessels The aortic root is normal in size. The ascending aorta is normal in size. IVC is normal in size and c ollapses >50% with inspiration. Pericardium There is no pericardial effusion. 2D Dimensions IVSD d PLAX 0.86 cm F: 0.6-1.0 LV Vol A2C d MOD 102.2 mL LVPW d PLAX 0.87 cm F: 0.6 - 1.0 LV Vol A4C d MOD 95.4 mL LVID d PLAX 4.73 cm F: 3.8 - 5.2 LA vol/ BSA A2C s A-L 19.9 mL/m2 LVDs 3.15 cm F: 2.2 - 3.5 LA vol/ BSA A4C s A-L 17.2 mL/m2 Ao Root d 2.71 cm F: 2.7 - 3.3 LA Vol/ BSA Biplane s A-L 18.7 mL/m2 RA Area A4C 9.94 cm2 LA Area A4C s MOD 13.82 cm2 RA Vol/ BSA A4C s A-L 10.7 mL/m2 LA Area A2C s MOD 14.68 cm2 Ao Asc Diam d 2.90 cm F: 2.3 - 3.1 LV EF A4C MOD 58.3 % LV EF Teichholz 61.3 % LV EF A2C MOD 58.5 % LVEF (Landers's) 58.35 % F: 54 - 74 LV EF Biplane MOD 58.3 % LV Volume 74.75 mL F: 46 - 106 SV 58.84 mL LV Volume Index 36.11 mL/m2 F: 29 - 61 SV Index 28.39 mL/m2 LV Vol Biplane MOD 100.8 mL FS 32.80 % M-Mode TAPSE 1.83 cm (M/F) >1.7 LV Diastology MV E' medial 0.111 (>0.07 m/s) E/A Ratio 1.1 LV E/e MED 4.95 (<14) MV E Vmax 0.55 (0.4-1.3 m/s) MV E' lateral 0.171 (>0.1 m/s) MV A Vmax 0.50 (0.4-1.3 m/s) LV E/e LAT 3.20 (<14) MV E/A Ratio 1.02 MV E/E' medial 4.96 MV E/E' lateral 3.21 Aortic Valve LVOT Area 3.32 cm2 AoV Area Vmax 2.78 cm2 LVOT Vmax 1.14 m/s AoV Area/ BSA (Vmax) 1.34 cm2/m2 LVOT Mean Charan. 0.71 m/s RITA Mean Charan. 2.58 cm2 LVOT Peak Grad 5.2 mmHg RITA Mean Charan. Index 1.24 cm2/m2 LVOT Mean Grad 2.4 mmHg LVOT VTI 0.180 m LVOT Diam s 2.05 cm AoV Vmax 1.37 m/s Velocity Ratio 0.83 AoV Mean Charan. 0.92 m/s AoV Peak Grad 7.5 mmHg LVOT SV 59.62 mL AoV Mean Grad 3.8 mmHg AoV VTI 0.199 m AoV Area VTI 3.00 cm2 AoV Area/ BSA (VTI) 1.45 cm/m2 Mitral Valve MV DT 260 (160-240 msec) MV PHT 75 msec MV Area PHT 2.92 cm2 MV VTI 0.181 m MV Area VTI 3.29 (4.0-6.0 cm2) Pulmonary Valve PV Vmax 0.89 (0.5-1.5 m/s) RVOT Peak Gr. 1.63 mmHg PV Peak Grad 3.2 mmHg RVOT Mean Gr. 0.90 mmHg PV Mean Grad 1.6 mmHg RVOT VTI 0.131 m PV VTI 0.157 m RVOT Vmax 0.64 m/s Tricuspid Valve TR Peak Grad 27.2 mmHg TR Vmax 2.61 m/s RA Pressure 3.00 mmHg RVSP (TR) 30.3 mmHg
--- NOTE | 2022-06-13 | DI.US_ITS ---
Exam(s) US EXTREMITY VENOUS BI EXAM: US EXTREMITY VENOUS BI CLINICAL HISTORY: Pulmonary embolism. TECHNIQUE: Bilateral lower extremity venous ultrasound performed using grayscale, color-flow, and sp ectral Doppler analysis. COMPARISON: No exams were available for comparison FINDINGS: The right common femoral, femoral and popliteal veins demonstrate normal compressibility, augmentatio n, and color Doppler. The posterior tibial veins are patent. The saphenofemoral junctions are unremar kable. There is no evidence of a Porter's cyst. The soft tissues are unremarkable. The left common femoral, femoral and popliteal veins demonstrate normal compressibility, augmentation , and color Doppler. The posterior tibial veins are patent. The saphenofemoral junctions are unremark able. There is no evidence of a Porter's cyst. The soft tissues are unremarkable. IMPRESSION: 1. No evidence of a right lower extremity DVT. 2. No evidence of a left lower extremity DVT. DATA REPOSITORY:
[2022-06-13 03:04] VITALS: BP 105/69; PULSE 84; RESP 16; TEMP 36.7; O2SAT 95
[2022-06-13 03:48] VITALS: PULSE 72
[2022-06-13 05:49] LABS: Abs Immature Grans 0.02 10^3/uL (0.0-0.06); Absolute Basophil Count 0.04 10^3/uL (0.0-0.2); Absolute Eosinophil Count 0.21 10^3/uL (0.0-0.7); Absolute Monocyte Count 0.78 10^3/uL (0.1-0.8); Basophils % 0.6; Eosinophils % 3.1; HGB 12.9 g/dL (11.2-15.7); Immature Grans % 0.3; Lymphocytes % 36.5; MCH 26.6 pg (27.0-33.0); MCHC 31.5 % (32.0-36.0); MCV 85 fL (80-95); MPV 9.2 fL (8.0-11.0); Monocytes % 11.4; Neutrophils % 48.1; Platelet Count 347 10^3/uL (130-400); RBC 4.85 10^6/uL (3.93-5.22); RDW 13.9 % (11.7-14.6); WBC 6.85 10^3/uL (4.4-10.8)
[2022-06-13 05:57] LABS: Anion Gap 11.2 mmol/L (3-11); BUN 11 mg/dL (7-18); CO2 24.8 mmol/L (21.0-32.0); CREATININE 0.9 mg/dL (0.55-1.02); Calcium 8.4 mg/dL (8.5-10.1); Chloride 104 mmol/L (98-107); Estimated GFR 90.42 (mL/min/1.73m2); Glucose 97 mg/dL (74-106); Potassium 3.8 mmol/L (3.5-5.1); Sodium 140 mmol/L (136-145)
[2022-06-13 07:28] VITALS: PULSE 78
[2022-06-13 07:48] VITALS: BP 106/70; PULSE 92; RESP 17; TEMP 36.9; O2SAT 98
--- NOTE | 2022-06-13 08:46 | INITIAL_ITS ---
- If Service Date Differs Date of service: 06/13/22 Time of Service: 08:46 Care Management Initial Assess REASON FOR HOSPITALIZATION:: pulmonary embolism PAST MEDICAL HISTORY/PAST SURGICAL HISTORY:: All Active Problems (Updated 06/12/22 @ 17:53 by Key Strange NP). DVT prophylaxis (Acute). Pulmonary embolism (Acute). Smoking (Acute). 6 weeks follow-up (Acute). Anxiety (Chronic). fluoxetine in the past. Encounter for routine follow-up (Acute). Erythromycin allergy (Acute). Allergy to penicillin (Acute). Migraine NEC/not intrcbl (Acute). Medical History (Updated 06/12/22 @ 17:53 by Key Strange NP). 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 Acute left flank pain. Anemia. Arm pain. Depressive disorder. Elective induction of labor planned. Elevated glucose. Family history of diabetes mellitus (DM). Jane type 2a hyperlipoproteinemia. Gestational diabetes. Heterozygous for MTHFR gene mutation. History of gestational diabetes. History of seizure. Hypercholesterolemia. Myoclonus. Obesity. headache. Preeclampsia. . Sciatica of right side. Seizure. Term of male . Tobacco dependence. Vaginal discharg PREVIOUS FUNCTIONAL STATUS/SOCIAL/FAMILY SUPPORTS:: Desi lives in [place] with her significant other Ellis. ADVANCE DIRECTIVES:: none on file Has patient been provided with info about the portal/API?: Yes Did the patient sign up for the portal?: Yes (previously) CODE STATUS:: Full Code INSURANCE COVERAGE / FINANCIAL ISSUES:: Medicaid PRIMARY CARE PHYSICIAN:: Marely Fernandez POTENTIAL DISCHARGE NEEDS:: follow up with PCP an plan of care PATIENT/FAMILY EDUCATION NEEDS:: Review of discharge instructions, limitations, activity, follow up plan, Ask Me Three TRANSPORTATION:: via private vehicle with family PLAN:: Anticipate Desi will discharge home with no new services. She will follow up with PCP and plan of care and transport with family. CM will continue to support Desi and her discharge needs.
[2022-06-13] MEDS: Nicotine 7 MG/24 HR PATCH TD (09:42)
[2022-06-13] MEDS: Apixaban 5 MG TAB 10 MG PO (09:42)
[2022-06-13] MEDS: Acetaminophen 325 MG TAB PO (09:47)
[2022-06-13 11:35] VITALS: BP 105/70; PULSE 66; RESP 15; TEMP 36.6; O2SAT 98
--- NOTE | 2022-06-13 11:40 | W.PM.DS.N ---
Date of service: 06/13/22 Time of Service: 11:41 DS: Diagnosis Discharge Diagnosis (1) Pulmonary embolism: Status: Acute (2) Smoking: Status: Acute (3) Anxiety: Status: Chronic Discharge Plan Disposition Patient Disposition: HOME Condition: Stable Discharge Details Reason For Visit: Pulmonary Embolism Admit Date/Time: 06/12/22 17:10 Admit Provider: Roel Chacon Attending Provider: Roel Chacon Primary Care Provider: Marely Fernandez Hospital Course Hospital Course: This 27-year-old female patient presented to the [facility] with report of headache, chest pain, shortness of breath, pleuritic pain in her chest.? She denied any calf pain or swelling.? She reported quitting smoking 6 months ago; she takes oral contraceptives.? History of coagulopathy, mother has had numerous blood clots in the past.? Denied known genetic component.? Has had several negative COVID tests at home.? Denied any recent flights, surgeries, long drives.? Denied personal history of blood clots.? Denied history of hypertension or hyperlipidemia.? Denied current . Found to have bilateral pulmonary embolism without saddle embolism or evidence of obvious right heart strain. She was stable, had no oxygen requirement, no chest pain. Her bilateral lower leg ultrasounds negative for clots. She was told to stop control pills and seek alternative methods for birthcontrol with her women's health provider. She was told to stop smoking. She is discharged to home stable on eliquis, follow up with PCP and pulmonology. ? Home Meds and New Rx's Prescriptions: New Eliquis DVT-PE Treat 30D Start 5 mg (74 tabs) tablets,dose pack See Rx Instructions .ROUTE .COMPLEX Qty: 74 0RF Rx Instructions: orally per package directions Eliquis DVT-PE Treat 30D Start 5 mg (74 tabs) tablets,dose pack See Rx Instructions .ROUTE .COMPLEX Qty: 74 0RF Rx Instructions: orally per package directions Continued fluoxetine 20 mg capsule 40 mg PO DAILY Discontinued norethindrone (contraceptive) [Manjula] 0.35 mg tablet 0.35 mg PO DAILY Qty: 28 12RF norethindrone ac-eth estradiol [Loestrin 1.5/30 (21)] 1.5-30 mg-mcg tablet 1 tab PO DAILY Qty: 21 8RF Discharge Instructions Instructions: Apixaban (By mouth), Pulmonary Embolism (DC), How to Stop Smoking (DC), Cigarette Smoking and Your Health (GEN) Additional Instructions: Stop smoking; stop oral contraceptive ( control pills) Discuss contraception with your women's health provider Please follow-up with pcp and pricing strategist Take Eliquis as prescribed Follow package instructions Return earlier with new or worsening complaints Stand Alone Forms: Nursing Discharge Form Referrals: Marely Fernandez [Primary Care Provider] - None (Please call to make a follow up appointment for 1-2 weeks) Desi Willams MD [ [facility] STAFF PHYSICIAN] - 09/20/22 2:00 pm (You will need an Echocardiogram before this appointment. Radiology will call you with appointment. Follow up - Pulmonary Embolism - smoking & OCP d/c on apixaban) Activity:: Activity as Tolerated Activity:: Activity as Tolerated Equipment/Supplies:: No Equipment Needed Diet:: As Tolerated Discharge Data Discharge Date/Time-TO BE ENTERED AT DEPARTURE: 06/13/22 12:58 DS: Summary Time Spent with Patient providing and/or coordinating discharge services: Greater than 30 minutes Status at Discharge Functional status at discharge: independent ambulation Overall status at discharge: patient is back to baseline Mental Status: mental status grossly normal Speech and Movement: speech and movement normal Mood: congruent mood Affect: normal affect Exam Narrative Exam Narrative: Constitutional: Alert and oriented x3. Appears stated age. Normal body habitus. Head: Normocephalic, no trauma. Eyes: Pupils PERRL, Red reflex noted, EOM's intact. Eyelids symmetrical without lesions, discharge, or swelling. Chest: RRR, Normal S1, S2, distal pulses intact. Resp: Lungs clear to auscultation bilaterally, no wheezes, rales, or rhonchi. Abdomen: Soft, non-distended, negative House sign, right CVA tenderness with palpation. Musculoskeletal: Normal gait, 5/5 strength to all four extremities. Skin: No suspicious rashes or lesions. Capillary refill less than 2 sec. Neurologic: Cranial nerves II-XII intact. Alert and oriented x 3. Motor: No deficits noted. Sensory: Intact bilaterally all 4 extremities. Hematologic/Lymphatic: No ecchymosis, no lymphadenopathy. Const General: cooperative, comfortable and no acute distress Eyes Sclera: sclerae normal Resp Effort & Inspection: normal respiratory effort Auscultation: clear to auscultation bilaterally Cardio Rate: regular rate Rhythm: regular rhythm Heart Sounds: no murmurs Skin General skin exam: no rashes or lesions noted Neuro General: patient alert and patient oriented x3 Extrem Other: No calf swelling or tenderness appreciated Psych Mental Status: mental status grossly normal Speech and Movement: speech and movement normal Mood: congruent mood Affect: normal affect DS: Data Vitals/I&O Vitals and I&O: Vital Signs Temperature 36.6 C 06/13/22 11:35 Temperature Source Tympanic 06/13/22 11:35 Pulse 66 06/13/22 11:35 Pulse Rhythm Regular 06/13/22 04:02 Respiratory Rate 15 06/13/22 11:35 Respiratory Effort Non-Labored 06/13/22 04:02 Respiratory Depth Normal 06/13/22 04:02 Respiratory Pattern Normal 06/13/22 04:02 Blood Pressure 105/70 06/13/22 11:35 Blood Pressure Position Sitting 06/12/22 09:23 Pulse Oximetry 98 06/13/22 11:35 Oxygen Delivery Method Room Air 06/13/22 11:35 Oxygen Flow Rate 0 06/13/22 11:35 Pain Level 3 06/13/22 09:47 Intake & Output 06/12/22 06/12/22 06/13/22 11:59 23:59 11:59 Intake Total 360 / 360 Balance 360 / 360 Weight 95.254 kg 96.3 kg 96.2 kg Intake: IV Oral 360 / 360 Other: Urine Color Yellow Urine Appearance Clear Clear Urine Odor None Comment up independently patient voids independently in toilet Voiding Methods Toilet Data Completed and Pending Labs on day of discharge: Labs from last 24 hours 06/13/22 06/13/22 06/12/22 05:25 05:15 17:05 WBC 6.85 RBC 4.85 Hgb 12.9 Hct 41.0 MCV 85 MCH 26.6 L MCHC 31.5 L RDW 13.9 Plt Count 347 MPV 9.2 Immature Gran % 0.3 Neutrophils % 48.1 Band Neutrophils % Lymphocytes % 36.5 Atypical Lymphs % Monocytes % 11.4 Eosinophils % 3.1 Basophils % 0.6 Metamyelocytes % Myelocytes % Promyelocytes % Other Cells % Nucleated RBC % 0.0 Absolute Neutrophils 3.30 Absolute Lymphocytes 2.50 Absolute Monocytes 0.78 Absolute Eosinophils 0.21 Absolute Basophils 0.04 RBC Morphology Polychromasia Hypochromasia Poikilocytosis Basophilic Stippling Anisocytosis Microcytosis Macrocytosis Spherocytes Tear Drop Cells Ovalocytes Stomatocytes [place] Bodies Becker Cells/Echinocytes Acanthocytes (Spur) Schistocytes D-Dimer VBG Lactate Sodium 140 Potassium 3.8 Chloride 104 Carbon Dioxide 24.8 Anion Gap 11.2 H BUN 11 Creatinine 0.9 Est GFR (CKD-EPI 2020) 90.42 Glucose 97 Calcium 8.4 L Magnesium 2.0 Total Bilirubin AST ALT Alkaline Phosphatase Troponin I Total Protein Albumin Lipase COVID-19 Source Nasal/Nares SARS-CoV-2 (PCR) Negative 06/12/22 06/12/22 06/12/22 16:38 12:55 12:55 WBC 9.98 RBC 5.02 Hgb 13.5 Hct 42.3 MCV 84 MCH 26.9 L MCHC 31.9 L RDW 13.8 Plt Count 371 MPV 9.0 Immature Gran % 0.2 Neutrophils % 61.5 Band Neutrophils % Lymphocytes % 29.3 Atypical Lymphs % Monocytes % 7.5 Eosinophils % 1.2 Basophils % 0.3 Metamyelocytes % Myelocytes % Promyelocytes % Other Cells % Nucleated RBC % 0.0 Absolute Neutrophils 6.14 Absolute Lymphocytes 2.92 Absolute Monocytes 0.75 Absolute Eosinophils 0.12 Absolute Basophils 0.03 RBC Morphology Polychromasia Hypochromasia Poikilocytosis Basophilic Stippling Anisocytosis Microcytosis Macrocytosis Spherocytes Tear Drop Cells Ovalocytes Stomatocytes [place] Bodies Becker Cells/Echinocytes Acanthocytes (Spur) Schistocytes D-Dimer 2169 H VBG Lactate 0.9 Sodium Potassium Chloride Carbon Dioxide Anion Gap BUN Creatinine Est GFR (CKD-EPI 2020) Glucose Calcium Magnesium Total Bilirubin AST ALT Alkaline Phosphatase Troponin I Total Protein Albumin Lipase COVID-19 Source SARS-CoV-2 (PCR) 06/12/22 06/12/22 06/12/22 12:35 12:35 12:35 WBC Cancelled RBC Cancelled Hgb Cancelled Hct Cancelled MCV Cancelled MCH Cancelled MCHC Cancelled RDW Cancelled Plt Count Cancelled MPV Cancelled Immature Gran % Cancelled Neutrophils % Cancelled Band Neutrophils % Cancelled Lymphocytes % Cancelled Atypical Lymphs % Cancelled Monocytes % Cancelled Eosinophils % Cancelled Basophils % Cancelled Metamyelocytes % Cancelled Myelocytes % Cancelled Promyelocytes % Cancelled Other Cells % Cancelled Nucleated RBC % Cancelled Absolute Neutrophils Cancelled Absolute Lymphocytes Cancelled Absolute Monocytes Cancelled Absolute Eosinophils Cancelled Absolute Basophils Cancelled RBC Morphology Cancelled Polychromasia Cancelled Hypochromasia Cancelled Poikilocytosis Cancelled Basophilic Stippling Cancelled Anisocytosis Cancelled Microcytosis Cancelled Macrocytosis Cancelled Spherocytes Cancelled Tear Drop Cells Cancelled Ovalocytes Cancelled Stomatocytes Cancelled [place] Bodies Cancelled Daniel Cells/Echinocytes Cancelled Acanthocytes (Spur) Cancelled Schistocytes Cancelled D-Dimer Cancelled VBG Lactate Sodium 139 Potassium 3.8 Chloride 104 Carbon Dioxide 24.3 Anion Gap 10.7 BUN 9 Creatinine 1.0 Est GFR (CKD-EPI 2020) 79.68 Glucose 80 Calcium 8.8 Magnesium Total Bilirubin 0.4 AST 22 ALT 18 Alkaline Phosphatase 106 Troponin I < 50 Total Protein 8.3 H Albumin 3.4 Lipase 44 COVID-19 Source SARS-CoV-2 (PCR) PFSH All Active Problems (Updated 06/14/22 @ 00:09 by IAM ACEVEDO) Pulmonary hypertension (Acute) Pulmonary embolism (Acute) Smoking (Acute) 6 weeks follow-up (Acute) Anxiety (Chronic) fluoxetine in the past Encounter for routine follow-up (Acute) Erythromycin allergy (Acute) Allergy to penicillin (Acute) Migraine NEC/not intrcbl (Acute) Medical History (Updated 06/14/22 @ 00:09 by IAM ACEVEDO) 5,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 Acute left flank pain Anemia Arm pain Depressive disorder Elective induction of labor planned Elevated glucose Family history of diabetes mellitus (DM) Jane type 2a hyperlipoproteinemia Gestational diabetes Heterozygous for MTHFR gene mutation History of gestational diabetes History of seizure Hypercholesterolemia Myoclonus Obesity Oral contraceptive intolerance headache Preeclampsia Sciatica of right side Seizure Term of male Tobacco dependence Vaginal discharge Family History (Updated 07/15/21 @ 13:26 by Jackie Mckeon CNM) Mother Pulmonary embolism cardiac blood clot Seizure disorder DVT (deep venous thrombosis) Father Diabetes Maternal Grandfather Stroke Maternal Grandmother Substance use disorder alcoholism Social History Smoking/Tobacco Use Status: Former Tobacco Use Smoking risk assessment performed?: Yes Alcohol Intake: never Drug use: Never Substance use type: does not use Do you feel safe at home: Yes Do you feel safe in your relationship?: Yes History History 1 Para 1 Hx # Term Pregnancies 1 Multiple births 0 Hx # Pregnancies 0 Ectopic pregnancies 0 AB induced 0 Hx Number of Living Children 1 AB spontaneous 0 Past Pregnancies Del. Date GA/Weeks # Preg Succ Route Wgt Sex Labor Lgth Anesthesia Location Prov Complic 05/28/21 39 No vaginal Male 3 hrs 11 min regional [facility] Delivery Date: 05/28/21 Last Updated by: Angélica Guardado LPN Diabetes Mellitus; Induced; Jason Ramirez
--- NOTE | 2022-06-13 12:02 | W.PM.DS.N ---
DS: Diagnosis Discharge Diagnosis (1) Pulmonary embolism: Status: Acute (2) Smoking: Status: Acute (3) Anxiety: Status: Chronic (4) Depressive disorder: (5) DVT prophylaxis: Status: Acute Discharge Plan Disposition Patient Disposition: HOME Condition: Stable Discharge Details Reason For Visit: Pulmonary Embolism Admit Date/Time: 06/12/22 17:10 Admit Provider: Roel Chacon Attending Provider: Roel Chacon Primary Care Provider: Marely Fernandez Home Meds and New Rx's Prescriptions: New Eliquis DVT-PE Treat 30D Start 5 mg (74 tabs) tablets,dose pack See Rx Instructions .ROUTE .COMPLEX Qty: 74 0RF Rx Instructions: orally per package directions Eliquis DVT-PE Treat 30D Start 5 mg (74 tabs) tablets,dose pack See Rx Instructions .ROUTE .COMPLEX Qty: 74 0RF Rx Instructions: orally per package directions Continued fluoxetine 20 mg capsule 40 mg PO DAILY Discontinued norethindrone (contraceptive) [Manjula] 0.35 mg tablet 0.35 mg PO DAILY Qty: 28 12RF norethindrone ac-eth estradiol [Loestrin 1.5/ (21)] 1.5-30 mg-mcg tablet 1 tab PO DAILY Qty: 21 8RF Discharge Instructions Instructions: Apixaban (By mouth), Pulmonary Embolism (DC), How to Stop Smoking (DC), Cigarette Smoking and Your Health (GEN) Additional Instructions: Stop smoking; stop oral contraceptive ( control pills) Discuss contraception with your women's health provider Please follow-up with pcp and support technician Take Eliquis as prescribed Follow package instructions Return earlier with new or worsening complaints Stand Alone Forms: Nursing Discharge Form Referrals: Marely Fernandez [Primary Care Provider] - None (Please call to make a follow up appointment for 1-2 weeks) Desi Willams MD [ [facility] STAFF PHYSICIAN] - 09/20/22 2:00 pm (You will need an Echocardiogram before this appointment. Radiology will call you with appointment. Follow up - Pulmonary Embolism - smoking & OCP d/c on apixaban) Activity:: Activity as Tolerated Equipment/Supplies:: No Equipment Needed Diet:: As Tolerated Discharge Orders Discharge Orders: Discharge Order (Routine); Ordered 06/13/22 Ordered By: Key Alexandr Discharge Data Discharge Date/Time-TO BE ENTERED AT DEPARTURE: 06/13/22 12:58 DS: Data Vitals/I&O Vitals and I&O: Vital Signs Temperature 36.6 C 06/13/22 11:35 Temperature Source Tympanic 06/13/22 11:35 Pulse 66 06/13/22 11:35 Pulse Rhythm Regular 06/13/22 04:02 Respiratory Rate 15 06/13/22 11:35 Respiratory Effort Non-Labored 06/13/22 04:02 Respiratory Depth Normal 06/13/22 04:02 Respiratory Pattern Normal 06/13/22 04:02 Blood Pressure 105/70 06/13/22 11:35 Blood Pressure Position Sitting 06/12/22 09:23 Pulse Oximetry 98 06/13/22 11:35 Oxygen Delivery Method Room Air 06/13/22 11:35 Oxygen Flow Rate 0 06/13/22 11:35 Pain Level 3 06/13/22 09:47 Intake & Output 06/12/22 06/13/22 06/13/22 23:59 11:59 23:59 Intake Total 360 / 360 Balance 360 / 360 Weight 96.3 kg 96.2 kg Intake: IV Oral 360 / 360 Other: Urine Color Yellow Urine Appearance Clear Clear Urine Odor None Comment up independently patient voids independently in toilet Voiding Methods Toilet Data Completed and Pending Labs on day of discharge: Labs from last 24 hours 06/13/22 06/13/22 06/12/22 05:25 05:15 17:05 WBC 6.85 RBC 4.85 Hgb 12.9 Hct 41.0 MCV 85 MCH 26.6 L MCHC 31.5 L RDW 13.9 Plt Count 347 MPV 9.2 Immature Gran % 0.3 Neutrophils % 48.1 Band Neutrophils % Lymphocytes % 36.5 Atypical Lymphs % Monocytes % 11.4 Eosinophils % 3.1 Basophils % 0.6 Metamyelocytes % Myelocytes % Promyelocytes % Other Cells % Nucleated RBC % 0.0 Absolute Neutrophils 3.30 Absolute Lymphocytes 2.50 Absolute Monocytes 0.78 Absolute Eosinophils 0.21 Absolute Basophils 0.04 RBC Morphology Polychromasia Hypochromasia Poikilocytosis Basophilic Stippling Anisocytosis Microcytosis Macrocytosis Spherocytes Tear Drop Cells Ovalocytes Stomatocytes [place] Bodies [place] Cells/Echinocytes Acanthocytes (Spur) Schistocytes D-Dimer VBG Lactate Sodium 140 Potassium 3.8 Chloride 104 Carbon Dioxide 24.8 Anion Gap 11.2 H BUN 11 Creatinine 0.9 Est GFR (CKD-EPI 2020) 90.42 Glucose 97 Calcium 8.4 L Magnesium 2.0 Total Bilirubin AST ALT Alkaline Phosphatase Troponin I Total Protein Albumin Lipase COVID-19 Source Nasal/Nares SARS-CoV-2 (PCR) Negative 06/12/22 06/12/22 06/12/22 16:38 12:55 12:55 WBC 9.98 RBC 5.02 Hgb 13.5 Hct 42.3 MCV 84 MCH 26.9 L MCHC 31.9 L RDW 13.8 Plt Count 371 MPV 9.0 Immature Gran % 0.2 Neutrophils % 61.5 Band Neutrophils % Lymphocytes % 29.3 Atypical Lymphs % Monocytes % 7.5 Eosinophils % 1.2 Basophils % 0.3 Metamyelocytes % Myelocytes % Promyelocytes % Other Cells % Nucleated RBC % 0.0 Absolute Neutrophils 6.14 Absolute Lymphocytes 2.92 Absolute Monocytes 0.75 Absolute Eosinophils 0.12 Absolute Basophils 0.03 RBC Morphology Polychromasia Hypochromasia Poikilocytosis Basophilic Stippling Anisocytosis Microcytosis Macrocytosis Spherocytes Tear Drop Cells Ovalocytes Stomatocytes [place] Bodies [place] Cells/Echinocytes Acanthocytes (Spur) Schistocytes D-Dimer 2169 H VBG Lactate 0.9 Sodium Potassium Chloride Carbon Dioxide Anion Gap BUN Creatinine Est GFR (CKD-EPI 2020) Glucose Calcium Magnesium Total Bilirubin AST ALT Alkaline Phosphatase Troponin I Total Protein Albumin Lipase COVID-19 Source SARS-CoV-2 (PCR) 06/12/22 06/12/22 06/12/22 12:35 12:35 12:35 WBC Cancelled RBC Cancelled Hgb Cancelled Hct Cancelled MCV Cancelled MCH Cancelled MCHC Cancelled RDW Cancelled Plt Count Cancelled MPV Cancelled Immature Gran % Cancelled Neutrophils % Cancelled Band Neutrophils % Cancelled Lymphocytes % Cancelled Atypical Lymphs % Cancelled Monocytes % Cancelled Eosinophils % Cancelled Basophils % Cancelled Metamyelocytes % Cancelled Myelocytes % Cancelled Promyelocytes % Cancelled Other Cells % Cancelled Nucleated RBC % Cancelled Absolute Neutrophils Cancelled Absolute Lymphocytes Cancelled Absolute Monocytes Cancelled Absolute Eosinophils Cancelled Absolute Basophils Cancelled RBC Morphology Cancelled Polychromasia Cancelled Hypochromasia Cancelled Poikilocytosis Cancelled Basophilic Stippling Cancelled Anisocytosis Cancelled Microcytosis Cancelled Macrocytosis Cancelled Spherocytes Cancelled Tear Drop Cells Cancelled Ovalocytes Cancelled Stomatocytes Cancelled [place] Bodies Cancelled [place] Cells/Echinocytes Cancelled Acanthocytes (Spur) Cancelled Schistocytes Cancelled D-Dimer Cancelled VBG Lactate Sodium 139 Potassium 3.8 Chloride 104 Carbon Dioxide 24.3 Anion Gap 10.7 BUN 9 Creatinine 1.0 Est GFR (CKD-EPI 2020) 79.68 Glucose 80 Calcium 8.8 Magnesium Total Bilirubin 0.4 AST 22 ALT 18 Alkaline Phosphatase 106 Troponin I < 50 Total Protein 8.3 H Albumin 3.4 Lipase 44 COVID-19 Source SARS-CoV-2 (PCR) PFSH All Active Problems (Updated 06/13/22 @ 11:59 by Desi Willams MD) Pulmonary hypertension (Acute) Oral contraceptive intolerance (Acute) DVT prophylaxis (Acute) Pulmonary embolism (Acute) Smoking (Acute) 6 weeks follow-up (Acute) Anxiety (Chronic) fluoxetine in the past Encounter for routine follow-up (Acute) Erythromycin allergy (Acute) Allergy to penicillin (Acute) Migraine NEC/not intrcbl (Acute) Medical History (Updated 06/13/22 @ 11:59 by Desi Willams MD) 5,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 Acute left flank pain Anemia Arm pain Depressive disorder Elective induction of labor planned Elevated glucose Family history of diabetes mellitus (DM) Jane type 2a hyperlipoproteinemia Gestational diabetes Heterozygous for MTHFR gene mutation History of gestational diabetes History of seizure Hypercholesterolemia Myoclonus Obesity headache Preeclampsia Sciatica of right side Seizure Term of male Tobacco dependence Vaginal discharge Family History (Updated 07/15/21 @ 13:26 by Jackie Mckeon CNM) Mother Pulmonary embolism cardiac blood clot Seizure disorder DVT (deep venous thrombosis) Father Diabetes Maternal Grandfather Stroke Maternal Grandmother Substance use disorder alcoholism Social History Smoking/Tobacco Use Status: Former Tobacco Use Smoking risk assessment performed?: Yes Alcohol Intake: never Drug use: Never Substance use type: does not use Do you feel safe at home: Yes Do you feel safe in your relationship?: Yes History History 1 Para 1 Hx # Term Pregnancies 1 Multiple births 0 Hx # Pregnancies 0 Ectopic pregnancies 0 AB induced 0 Hx Number of Living Children 1 AB spontaneous 0 Past Pregnancies Del. Date GA/Weeks # Preg Succ Route Wgt Sex Labor Lgth Anesthesia Location Prov Complic 05/28/21 39 No vaginal Male 3 hrs 11 min regional [facility] Delivery Date: 05/28/21 Last Updated by: Angélica Guarddao LPN Diabetes Mellitus; Induced; Jason Ramirez
[2022-06-13 13:00] VITALS: PULSE 81
--- NOTE | 2022-06-13 17:19 | PDOC.CMPRO ---
- If Service Date Differs Date of service: 06/13/22 Time of Service: 17:19 Care Management Progress Note Desi was discharged before CM was able to meet with her. She was prescribed Apixaban to treat the pulmonary embolus identified on [id number] and advised to stop smoking and to discontinue taking her control pills, per provider.
== END 2022-06-13 12:58 | disposition home or self-care (01) ==
LOC: ER 16:19 → MS 17:52
PROVIDERS: Nurse Practitioner Family; Admitting Provider Family Medicine; Emergency Provider Physician Assistant; PCP Nurse Practitioner Family; Visit Provider Family Medicine
DX: I26.99 Other pulmonary embolism without acute cor pulmonale (principal); Z79.899 Other long term (current) drug therapy; Z20.822 Contact with and (suspected) exposure to COVID-19; R51.9 Headache, unspecified; R07.89 Other chest pain; R06.02 Shortness of breath; F17.210 Nicotine dependence, cigarettes, uncomplicated; F41.9 Anxiety disorder, unspecified; F32.A Depression, unspecified
CPT/HCPCS: 36415; 71275; 80048; 80053; 81025; 83690; 87635; 93005; 93308; 96372; 99285; 83605; 83735; 84484; 85025; 85379; 93010; 93306; 93970; 99219; 99284; G0378; J1650

== ENCOUNTER 2022-08-31 01:29 | Outpatient (CLI) | payer MEDICAID, SELFPAY ==
--- NOTE | 2022-08-31 15:02 | DI.US_ITS ---
APPROVED REPORT EXAM: Comprehensive 2D, Doppler, and color-flow Echocardiogram Patient Location: [facility] Engagement Partner: Kiara Giron RDCS (AE) Indications: F/u elevate RSVP from PE, Pulmonary HTN Other Information Study Quality: Good Conclusion Limited follow-up following pulmonary embolus Right ventricular size and systolic function is normal Left ventricle appears normal in size, systolic function and wall thickness Estimated right ventricular systolic pressure is 15.4 mmHg Wall motion Right Ventricle The right ventricle is normal size. The right ventricular systolic function is normal. Tricuspid Valve The tricuspid valve is normal in structure. Trace tricuspid regurgitation. The RVSP is 15.4 mmHg. Tricuspid Valve TR Peak Grad 10.8 mmHg TR Vmax 1.65 m/s RA Pressure 3.00 mmHg RVSP (TR) 15.4 mmHg
== END 2022-08-31 01:49 ==
LOC: DI 01:29
PROVIDERS: Visit Provider Student in an Organized Health Care Education/Training Program
DX: I26.99 Other pulmonary embolism without acute cor pulmonale (principal); I27.20 Pulmonary hypertension, unspecified
CPT/HCPCS: 93308

== ENCOUNTER 2022-09-25 18:16 | Outpatient (CLI) | payer MEDICAID, SELFPAY ==
[2022-09-25 17:24] LABS: D-Dimer 191 ng/mlFEU (<500)
[2022-09-27 09:04] LABS: Homocysteine 7.6 umol/L (5.0-13.9)
[2022-10-02 09:24] LABS: Factor V Leiden(R506Q) Mut Negative (Negative); Prothrombin G20210A Mutation Negative (Negative)
[2022-10-19 16:12] LABS: Thrombin-Antithrombin Complex 21.8 ng/mL
== END 2022-09-25 18:17 | disposition home or self-care (01) ==
LOC: LBO 18:17
PROVIDERS: Visit Provider Student in an Organized Health Care Education/Training Program
DX: E72.12 Methylenetetrahydrofolate reductase deficiency (principal); I26.99 Other pulmonary embolism without acute cor pulmonale; I27.20 Pulmonary hypertension, unspecified
CPT/HCPCS: 36415; 81240; 81241; 83090; 83520; 85379

== ENCOUNTER 2022-12-22 00:53 | Outpatient (CLI) | payer MEDICAID, SELFPAY ==
--- NOTE | 2022-12-22 07:30 | DI.NM_ITS ---
Exam(s) NM LUNG SCAN VENT PERF GRP EXAM: NM LUNG SCAN VENT PERF GRP CLINICAL HISTORY: continue dyspnea on exertion,pulmonary embolism,i26.99. TECHNIQUE: Injected Dose: Ventilation: 30 mCi Tc-99m DTPA via inhalation Perfusion: 4 mCi Tc-99m MAA via IV COMPARISON: CT CT CHEST PE CTA from 06/12/2022 CR XR CHEST 2V PA LATERAL from 12/22/2022 FINDINGS: Chest X-Ray: Clear lungs. Perfusion: Normal. No perfusion defects are visualized. Ventilation:Normal. IMPRESSION: 1. Low probability VQ examination. Modified PIOPED II criteria Probability Criteria High Two or more segments of V/Q mismatch Low Normal Perfusion, Non segmental perfusion abnormalitie s, pleural effusion in at least 1/3 of pleural cavity with no other defect Radiograph/perfusion matched defect in mid to upper lung confined to segment, one to three small segmental perfusion defects (<25% of segment) Perfusion defect smaller than corresponding radiogra phic lesion. Intermediate All other findings DATA REPOSITORY:
--- NOTE | 2022-12-22 07:30 | DI.RAD_ITS ---
Exam(s) XR CHEST 2V PA LATERAL EXAM: XR CHEST 2V PA LATERAL CLINICAL HISTORY: pulmonary embolism, continued dyspnea on exertion,i26.99 TECHNIQUE: 2D digital imaging was performed of the chest. Two images were obtained. PA and lateral views were obtained. COMPARISON: No exams were available for comparison FINDINGS: MEDIASTINUM: Normal. HEART: Normal. PULMONARY VASCULATURE: Normal. LUNGS: Clear. PLEURAL SPACE: No pleural effusion or pneumothorax. BONE:Within normal limits for the patient's age. OTHER FINDINGS:Normal. IMPRESSION: No acute pulmonary findings. DATA REPOSITORY: RADIATION DOSE DELIVERED:
== END 2022-12-22 01:13 ==
LOC: DI 00:53
PROVIDERS: Visit Provider Physician Assistant Surgical
DX: I26.99 Other pulmonary embolism without acute cor pulmonale (principal); Z12.2 Encounter for screening for malignant neoplasm of respiratory organs
CPT/HCPCS: 78582; 71046

== ENCOUNTER 2025-05-21 08:59 | Emergency (ER) | payer MEDICAID, SELFPAY ==
--- NOTE | 2025-05-21 08:59 | W.ED.GENAD ---
Discharge Plan Disposition Patient Disposition: Home Discharge Details Clinical Impression: Chest pain, unspecified Primary Care Provider: Aby Huertas ED Provider: Carlos Denton Home Meds and New Rx's Prescriptions: Continued bupropion HCl [Wellbutrin SR] 150 mg tablet sustained-release 12 hr 150 mg PO BID polyethylene glycol 3350 17 gram/dose powder 17 g PO DAILY Mirena 21 mcg/24hr (up to 8 yrs) 52 mg intrauterine device 1 device intrauterine ONCE Rx Instructions: as a single dose fluoxetine 20 mg capsule 40 mg PO DAILY Discharge Instructions Additional Instructions: You were seen in the emergency department for your chest pain. Your blood work shows no sign of any heart attack. There is no sign of a blood clot. At this point you have no sign of pneumonia however if you develop worsening shortness of breath fevers or cough please return to the emergency department. Your COVID influenza and RSV swabs are all negative. Please follow-up as needed with your primary care provider. Discharge Data Discharge Date/Time-TO BE ENTERED AT DEPARTURE: 05/21/25 10:36 HPI General Date/Time Provider Initiated Documentation: 05/21/25 08:59. HPI Narrative: MDM This is a quite well-appearing normothermic and not tachycardic 30-year-old female with prior history of PEs with right sided chest pain concerning for recurrent PE for which patient will undergo D-dimer testing as she is not PERC negative. No abnormal lung sounds to suggest pneumonia however given respiratory symptoms will complete two-view chest x-ray. Patient is low risk for ACS however will obtain ECG and troponin. Patient has not been vomiting to suggest increased risk for esophageal rupture. No rash to chest to suggest zoster. No trauma and equal breath sounds so doubt pneumothorax. No positional component to suggest pericarditis. Patient is not a dialysis patient nor she hypotensive nor tachycardic so my suspicion is low for tamponade. Will reassess following labs and imaging. 9:53 AM CBC lacks anemia thrombocytopenia leukocytosis. 10:06 AM Reassuring undetectable troponin. Given duration of symptoms and low risk will defer additional troponin. No JEWEL. Reassuring basic metabolic panel with no acute electrolyte abnormalities. Normal reassuring magnesium. CBC lacks anemia thrombocytopenia leukocytosis. Negative hCG. Dimer pending. 10:21 AM Chest x-ray with no acute cardiopulmonary process. COVID influenza RSV all negative. Negative D-dimer not consistent with PE. I met with the patient the patient. We discussed that she should return if she develops any worsening shortness of breath chest pain nausea or vomiting. She understands return indications discharged with empiric trial of expectant outpatient management. Diagnostic interpretations performed by me: Per my independent interpretation chest x-ray shows: Per my independent interpretation EKG shows: Narrow complex normal sinus rhythm at a rate of 63. Normal axis. Intervals within normal limits. No T wave inversions. Appears similar to prior dated 3 years ago. HPI This is a patient with a history of blood clots presenting with shortness of breath. The patient reports experiencing shortness of breath, which she initially attributed to a sinus infection that started approximately one week ago. Although the congestion has since resolved, she now feels the discomfort in her lungs. Over the past week, she has been expectorating dark green phlegm with an unpleasant taste. She also mentions chest pain located beneath her right breast, which started a few days ago. She reports no high cholesterol or diabetes. Her mother is currently experiencing pneumonia, but they have not been in close contact. Her [id number] child frequently falls ill and currently has a mild cough and congestion. The patient has a history of blood clots, including a pulmonary embolism diagnosed during a previous hospital visit for suspected pneumonia. She was on anticoagulant therapy until the delivery of her last child 19 months ago. The cause of her blood clot was believed to be a combination of oral contraceptive use and a prior cholecystectomy. She is no longer on anticoagulation. She reports no unusual rashes on her chest, vomiting, fevers, or recent trauma to the chest. PAST SURGICAL HISTORY: Cholecystectomy Exam General: Well-appearing in no acute distress speaking in complete sentences. Head: Normocephalic, atraumatic. Eye: Extraocular eye movements intact. No conjunctival injection. No scleral icterus. Ear, nose, mouth, throat: Grossly normal inspection. Normal voice, handling secretions normally. Neck: Trachea midline. Cardiovascular: Well-perfused distal extremities. Regular rate and rhythm. Respiratory: Nonlabored respiration. Clear lungs bilaterally. Chest wall: With the emergency department industrial cleaning technician Estrella Urena completed a chest wall inspection. Patient no chest wall tenderness. No rash to chest. Gastrointestinal: Nondistended abdomen. Musculoskeletal: No edema. Moving all 4 extremities spontaneously. Skin: Normal for age and race, grossly normal temperature and turgor. No acute rash. Neurologic: Alert and appropriate, no apparent acute deficits. Psychiatric: Mood and manner are appropriate. Grooming and personal hygiene are appropriate. Related Data Home Medications ?Medication ?Instructions ?Recorded ?Confirmed fluoxetine 20 mg capsule 40 mg PO DAILY 06/12/22 05/21/25 bupropion HCl 150 mg tablet,12 hr 150 mg PO BID 12/19/22 05/21/25 sustained-release (Wellbutrin SR) polyethylene glycol 3350 17 17 g PO DAILY 12/19/22 05/21/25 gram/dose oral powder levonorgestrel (Mirena) 1 device intrauterine ONCE 05/21/25 05/21/25 Allergies Allergy/AdvReac Type Severity Reaction Status Date / Time erythromycin base Allergy Mild Unknown Verified 05/21/25 09:07 oxybutynin (From Ditropan) Allergy Mild Unknown Verified 05/21/25 09:07 sulfamethoxazole (From Allergy Mild Unknown Verified 05/21/25 09:07 Bactrim) trimethoprim (From Bactrim) Allergy Mild Unknown Verified 05/21/25 09:07 penicillin V (From Pen-Vee K) Allergy hives Verified 05/21/25 09:07 Penicillins Allergy Unknown Verified 05/21/25 09:07 lactose AdvReac Unknown Unverified 05/21/25 09:07 General LIDIA: 3 PFSH All Active Problems (Updated 05/21/25 @ 10:24 by Carlos Denton MD) Chest pain, unspecified (Acute) Abnormal laboratory test (Acute) Pulmonary hypertension (Acute) Pulmonary embolism (Acute) Smoking (Acute) 6 weeks follow-up (Acute) Anxiety (Chronic) fluoxetine in the past Encounter for routine follow-up (Acute) Erythromycin allergy (Acute) Allergy to penicillin (Acute) Migraine NEC/not intrcbl (Acute) Medical History (Updated 05/21/25 @ 10:24 by Carlos Denton MD) Oral contraceptive intolerance History of gestational diabetes headache Term of male Elective induction of labor planned Preeclampsia Vaginal discharge Anemia Family history of diabetes mellitus (DM) Gestational diabetes Elevated glucose Acute left flank pain Heterozygous for MTHFR gene mutation History of seizure Sciatica of right side Arm pain Seizure Myoclonus Depressive disorder Tobacco dependence Jane type 2a hyperlipoproteinemia 5,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 Obesity Hypercholesterolemia Family History (Updated 07/15/21 @ 13:26 by Jackie Mckeon CNM) Mother Pulmonary embolism cardiac blood clot Seizure disorder DVT (deep venous thrombosis) Father Diabetes Maternal Grandfather Stroke Maternal Grandmother Substance use disorder alcoholism Social History Smoking/Tobacco Use Status: Former Tobacco Use Smoking risk assessment performed?: Yes Alcohol Intake: never Drug use: Never Substance use type: does not use Housing: house Do you feel safe at home: Yes Do you feel safe in your relationship?: Yes History History 1 Para 1 Hx # Term Pregnancies 1 Multiple births 0 Hx # Pregnancies 0 Ectopic pregnancies 0 AB induced 0 Hx Number of Living Children 1 AB spontaneous 0 Past Pregnancies Del. Date GA/Weeks # Preg Succ Route Wgt Sex Labor Lgth Anesthesia Location Prov Complic 05/28/21 39 No vaginal Male 3 hrs 11 min [facility] Delivery Date: 05/28/21 Last Updated by: Angélica Guardado LPN Diabetes Mellitus; Induced; Jason Ramirez
[2025-05-21 09:00] VITALS: BP 114/72; PULSE 82; RESP 16; TEMP 36.8; O2SAT 98
[2025-05-21 09:09] VITALS: BP 114/72; PULSE 82; RESP 16; TEMP 36.8; O2SAT 98
--- NOTE | 2025-05-21 09:15 | RT.EKG_ITS ---
APPROVED REPORT Exam: Resting ECG Reason for Exam: Chest pain Patient Location: E HR:63 bpm ECG Measurements Heart Rate 63 AXIS MA 139 P 44 QRSd 98 QRS 65 QT 416 T 63 QTc 425 Conclusion Sinus rhythm...normal P axis, V-rate 60- 99 No Occlusion WI
[2025-05-21 09:41] LABS: Abs Immature Grans 0.01 10^3/uL (0.0-0.06); HCT 41.2 % (36.0-46.0); HGB 13.1 g/dL (11.2-15.7); Immature Grans % 0.2 %; MCH 27.8 pg (27.0-33.0); MCHC 31.8 % (32.0-36.0); MCV 87 fL (80-95); MPV 8.8 fL (8.0-11.0); Platelet Count 382 10^3/uL (130-400); RBC 4.72 10^6/uL (3.93-5.22); RDW 12.9 % (11.7-14.6); RDW-SD 41.3 fL; WBC 4.55 10^3/uL (4.4-10.8)
--- NOTE | 2025-05-21 09:56 | DI.RAD_ITS ---
Exam(s) XR CHEST 2V PA LATERAL EXAM: XR CHEST 2V PA LATERAL CLINICAL HISTORY: Chest pain TECHNIQUE: 2D digital imaging was performed. Two views. COMPARISON: CR XR CHEST 2V PA LATERAL from 12/22/2022 FINDINGS: HEART: Normal size. Aorta: Not dilated. PULMONARY VASCULATURE: Normal. MEDIASTINUM: Unremarkable. LUNGS: Clear. PLEURAL SPACE: No pleural effusion or pneumothorax. BONE:Unremarkable for age. SOFT TISSUES: Unremarkable. IMPRESSION: No acute abnormality. DATA REPOSITORY: RADIATION DOSE DELIVERED:
[2025-05-21 09:58] LABS: HCG Qual (Serum) Negative
[2025-05-21 10:01] LABS: Anion Gap 7.8 mmol/L (3-11); BUN 13 mg/dL (7-18); CO2 28.2 mmol/L (21.0-32.0); Calcium 8.8 mg/dL (8.5-10.1); Chloride 103 mmol/L (98-107); Estimated GFR 78.21 (mL/min/1.73m2); Glucose 86 mg/dL (74-106); Magnesium 2.2 mg/dL (1.8-2.4); Potassium 4.0 mmol/L (3.5-5.1); Sodium 139 mmol/L (136-145)
[2025-05-21 10:03] LABS: Troponin I < 4 ng/L (<or=51)
[2025-05-21 10:05] LABS: COVID-19 PCR Negative (Negative); RSV PCR Negative (Negative)
[2025-05-21 10:09] LABS: D-Dimer 321 ng/mlFEU (<500)
[2025-05-21 10:31] VITALS: BP 116/73; PULSE 72; RESP 20; O2SAT 97
== END 2025-05-21 10:36 | disposition home or self-care (01) ==
PROVIDERS: Emergency Provider Emergency Medicine; PCP Nurse Practitioner Family
DX: R07.9 Chest pain, unspecified (principal); R09.89 Other specified symptoms and signs involving the circulatory and respiratory systems
CPT/HCPCS: 99285; 99283; 36415; 81025; 80048; 87637; 93005; 71046; 83735; 84484; 84703; 85025; 85379; 93010